=== PATIENT | male | born 1955 | race Caucasian/White ===

== ENCOUNTER 2016-10-01 20:21 | Emergency (ER) | payer SELFPAY ==
[2016-10-01] MEDS ORDERED: HYDROmorphone 2 MG/ML Syringe IVPUSH ONE (20:34)
[2016-10-01] MEDS ORDERED: Ondansetron 4 MG/2 ML SDV IVPUSH ONE (20:34)
[2016-10-01] MEDS ORDERED: Ketorolac 30 MG/ML SDV IVPUSH ONE (20:34)
[2016-10-01] MEDS ORDERED: Sodium Chloride 0.9% 1,000 ML IV ONE (20:34)
--- NOTE | 2016-10-01 20:46 | EDM.PDOC ---
<Doris Roque R - Last Filed: 10/01/16 21:13> ED HPI GENERAL MEDICAL PROBLEM - General Chief Complaint: Flank Pain Stated Complaint: RIGHT SIDE AND BACK PAIN Time Seen by Provider: 10/01/16 20:30 Source of Information: Reports: Patient History Limitations: Reports: No Limitations - History of Present Illness INITIAL COMMENTS - FREE TEXT/NARRATIVE: Presents to the ER reporting right flank pain since 1:00 this afternoon. Patient has a history of renal stones with the same type of pain in the past. Denies fever, dysuria, injury. A review of the records indicates that the patient was seen in this ER in July and September of 2015 with similar symptoms and diagnosed with nonobstructing renal stones which she was able to pass on its own. Right Flank Pain Score (Numeric/FACES): 10 - Related Data Allergies Allergy/AdvReac Type Severity Reaction Status Date / Time No Known Allergies Allergy Verified 10/01/16 20:24 Home Meds: Home Meds . [No Known Home Meds] 10/01/16 [History] Past Medical History - Past Health History Medical/Surgical History: Denies Medical/Surgical History HEENT History: Reports: None Cardiovascular History: Reports: None Respiratory History: Reports: None Gastrointestinal History: Reports: None Genitourinary History: Reports: Renal Calculus Neurological History: Reports: None Psychiatric History: Reports: None Endocrine/Metabolic History: Reports: None Hematologic History: Reports: None Immunologic History: Reports: None Oncologic (Cancer) History: Reports: None Dermatologic History: Reports: None - Infectious Disease History Infectious Disease History: Reports: None - Past Surgical History GI Surgical History: Reports: Hernia Repair/Other Musculoskeletal Surgical History: Reports: Shoulder Surgery, Other (See Below) Social & Family History - Family History Family Medical History: Noncontributory - Tobacco Use Smoking Status *Q: Current Every Day Smoker Years of Tobacco use: 15 Packs/Tins Daily: 1 Used Tobacco, but Quit: No Second Hand Smoke Exposure: Yes - Alcohol Use Days Per Week of Alcohol Use: 0 - Recreational Drug Use Recreational Drug Use: No ED ROS GENERAL - Review of Systems Review Of Systems: ROS reveals no pertinent complaints other than HPI. ED EXAM, RENAL/ - Physical Exam Exam: See Below Exam Limited By: No Limitations General Appearance: Alert, Moderate Distress (Due to flank pain) Ears: Normal External Exam Nose: Normal Inspection Throat/Mouth: Normal Inspection Head: Atraumatic, Normocephalic Neck: Normal Inspection Respiratory/Chest: No Respiratory Distress, Lungs Clear, Normal Breath Sounds Cardiovascular: Normal Peripheral Pulses, Regular Rate, Rhythm, No Murmur GI/Abdominal: Soft, Non-Tender Back Exam: Normal Inspection, Full Range of Motion Extremities: Normal Inspection Neurological: Alert, Oriented Psychiatric: Normal Affect, Anxious Skin Exam: Warm, Dry, Intact, Normal Color, No Rash Lymphatic: No Adenopathy Course - Vital Signs Last Recorded V/S: Last Vital Signs Temp 36.1 C 10/01/16 21:04 Pulse 51 L 10/01/16 21:42 Resp 15 10/01/16 21:42 BP 217/102 H 10/01/16 21:42 Pulse Ox 96 10/01/16 21:42 - Orders/Labs/Meds Orders: Active Orders 24 hr Category Date Time Status EKG Documentation Completion [RC] STAT Care 10/01/16 21:04 Active Abdomen Pelvis wo Cont [CT] Stat Exams 10/01/16 21:54 Taken Labs: Laboratory Tests 10/01/16 10/01/16 10/01/16 Range/Units 20:32 20:32 20:40 WBC 13.17 H (4.0-11.0) K/uL RBC 4.65 (4.50-5.90) M/uL Hgb 14.3 (13.0-17.0) g/dL Hct 42.2 (38.0-50.0) % MCV 90.8 (80.0-98.0) fL MCH 30.8 (27.0-32.0) pg MCHC 33.9 (31.0-37.0) g/dL RDW Std Deviation 44.3 (28.0-62.0) fl RDW Coeff of Aishwarya 14 (11.0-15.0) % Plt Count 224 (150-400) K/uL MPV 10.10 (7.40-12.00) fL Neut % (Auto) 84.8 H (48.0-80.0) % Lymph % (Auto) 11.2 L (16.0-40.0) % [place] % (Auto) 3.6 (0.0-15.0) % Eos % (Auto) 0.3 (0.0-7.0) % Baso % (Auto) 0.1 (0.0-1.5) % Neut # (Auto) 11.2 H (1.4-5.7) K/uL Lymph # (Auto) 1.5 (0.6-2.4) K/uL [place] # (Auto) 0.5 (0.0-0.8) K/uL Eos # (Auto) 0.0 (0.0-0.7) K/uL Baso # (Auto) 0.0 (0.0-0.1) K/uL Nucleated RBC % 0.0 /100WBC Nucleated RBCs # 0 K/uL Sodium 142 (136-146) mmol/L Potassium 3.8 (3.5-5.1) mmol/L Chloride 109 (98-110) mmol/L Carbon Dioxide 24 (21-31) mmol/L BUN 14 (6.0-23.0) mg/dL Creatinine 1.1 (0.6-1.5) mg/dL Est Cr Clr Drug Dosing 83.03 mL/min Estimated GFR (MDRD) > 60.0 ml/min Glucose 161 H (60-110) mg/dL Calcium 9.9 (8.8-10.8) mg/dL Total Bilirubin 0.6 (0.1-1.5) mg/dL AST 18 (5-40) IU/L ALT 17 (8-54) IU/L Alkaline Phosphatase 85 (40-150) Total Protein 8.2 H (6.0-8.0) g/dL Albumin 4.6 (3.4-4.8) g/dL Globulin 3.6 H (2.0-3.5) g/dL Albumin/Globulin Ratio 1.3 (1.3-2.8) Urine Color YELLOW Urine Appearance SLT CLOUDY Urine pH 5.5 (5.0-8.0) Ur Specific [place] >= 1.030 (1.001-1.035) Urine Protein 30 (NEGATIVE) mg/dL Urine Glucose (UA) NEGATIVE (NEGATIVE) mg/dL Urine Ketones 15 H (NEGATIVE) mg/dL Urine Occult Blood LARGE H (NEGATIVE) Urine Nitrite NEGATIVE (NEGATIVE) Urine Bilirubin NEGATIVE (NEGATIVE) Urine Urobilinogen 0.2 (<2.0) EU/dL Ur Leukocyte Esterase NEGATIVE (NEGATIVE) Urine RBC 10-15 (0-2/HPF) Urine WBC 0-4 (0-5/HPF) Ur Epithelial Cells OCCASIONAL (NONE-FEW) Amorphous Sediment LIGHT (NEGATIVE) Urine Bacteria FEW (NEGATIVE) Fine Granular Casts 0-1 (NEGATIVE) Coarse Granular Casts 0-1 (NEGATIVE) Urine Mucus LIGHT (NONE-MOD) Meds: Medications Discontinued Medications Generic Name Dose Route Start Last Admin Trade Name Herbertq PRN Reason Stop Dose Admin Hydromorphone HCl 1 mg 10/01/16 20:34 10/01/16 20:53 Dilaudid IVPUSH 10/01/16 20:35 1 mg ONETIME ONE Administration Sodium Chloride 1,000 mls @ 999 mls/hr 10/01/16 20:34 10/01/16 20:52 Normal Saline IV 10/01/16 21:34 999 mls/hr STAT ONE Administration Ketorolac Tromethamine 30 mg 10/01/16 20:34 10/01/16 20:52 Toradol IVPUSH 10/01/16 20:35 30 mg ONETIME ONE Administration Ondansetron HCl 4 mg 10/01/16 20:34 10/01/16 20:52 Zofran IVPUSH 10/01/16 20:35 4 mg ONETIME ONE Administration Departure - Departure Disposition: Home, Self-Care 01 Clinical Impression: Ureterolithiasis - Discharge Information Forms: ED Department Discharge Additional Instructions: The following information is given to patients seen in the emergency department who are being discharged to home. This information is to outline your options for follow-up care. We provide all patients seen in our emergency department with a follow-up referral. The need for follow-up, as well as the timing and circumstances, are variable depending upon the specifics of your emergency department visit. If you don't have a primary care physician on staff, we will provide you with a referral. We always advise you to contact your personal physician following an emergency department visit to inform them of the circumstance of the visit and for follow-up with them and/or the need for any referrals to a consulting specialist. The emergency department will also refer you to a specialist when appropriate. This referral assures that you have the opportunity for followup care with a specialist. All of these measure are taken in an effort to provide you with optimal care, which includes your followup. Under all circumstances we always encourage you to contact your private physician who remains a resource for coordinating your care. When calling for followup care, please make the office aware that this follow-up is from your recent emergency room visit. If for any reason you are refused follow-up, please contact the [facility] emergency department at and asked to speak to the emergency department charge nurse. [facility] Specialty Care - Urology [address] [place] [id number] Flomax hydrocodone Zofran as prescribed followup urology above is discussed return as needed as discussed <Dewey Burton - Last Filed: 10/01/16 22:48> Departure - Departure Time of Disposition: 22:44 Condition: good
[2016-10-01 21:20] LABS: CHLORIDE,CL 109 mmol/L (98-110); SODIUM,NA 142 mmol/L (136-146)
[2016-10-01 22:50] VITALS: BP 248/113
--- NOTE | 2016-10-02 15:28 | CT ---
EXAM DATE: 10/01/16 PATIENT'S AGE: 61 Patient: DAVID GUTIERREZ Facility: [place], [place] Site . Site : [id number] Study: CT Abdomen/Pelvis [id number]/4/2017 10:15:09 PM Ordering Physician: Doctor Howard Final Report: INDICATION: Right-sided pain. TECHNIQUE: CT abdomen and pelvis acquired without contrast. COMPARISON: CT abdomen and pelvis October 15, 2015. FINDINGS: Lower chest: Unremarkable. Liver: Unremarkable. Spleen: Unremarkable. Pancreas: Unremarkable. Gallbladder and bile ducts: Unremarkable. Kidneys: There is a 1 x 5 mm stone at the right ureterovesicular junction causing mild to moderate hydroureteronephrosis. No additional ureteral stones demonstrated. Additional bilateral nonobstructing renal stones. Right renal cyst , unchanged. Adrenal glands: Unremarkable. GI tract: Unremarkable. Appendix is normal. No free air or free fluid. Vascular structures: Unremarkable. Lymph nodes: Unremarkable. Pelvic Organs: Unremarkable. Bones: Degenerative changes of the spine. Remote right rib fractures. IMPRESSION: 1 x 5 mm stone at the right ureterovesicular junction causing mild to moderate hydroureteronephrosis. Nonobstructing renal stones. Dictated by Raymundo Horner MD @ 10/01/2016 10:39:23 PM Dictated by: Raymundo Horner MD @ 10/01/2016 22:39:36 (Electronic Signature) Report Signed by Proxy. [facility]ITAL[facility]imi
== END 2016-10-01 22:59 | disposition home or self-care (01) ==
LOC: MW.ED 20:21
DX: N13.2 Hydronephrosis with renal and ureteral calculous obstruction (principal); F17.210 Nicotine dependence, cigarettes, uncomplicated; Z98.890 Other specified postprocedural states
CPT/HCPCS: 36415; 74176; 80053; 81001; 85025; 93005; 96361; 96374; 96375; 99284; J1170; J1885; J2405; J7040

== ENCOUNTER 2016-11-24 10:18 | Inpatient (IN) | payer SELFPAY ==
--- NOTE | 2016-11-24 10:48 | EDM.PDOC ---
ED HPI GENERAL MEDICAL PROBLEM - General Chief Complaint: Abdominal Pain Stated Complaint: URINARY ISSUES Time Seen by Provider: 11/24/16 10:34 Source of Information: Reports: Patient History Limitations: Reports: No Limitations - History of Present Illness INITIAL COMMENTS - FREE TEXT/NARRATIVE: HISTORY AND PHYSICAL: History of present illness: [61-year-old male with a history of "kidney problems," as well as a history of alcoholism but has not drank in years now presents emergency department complaining of feeling really weak. Patient's blood pressure is significantly elevated on arrival at 245/91. Patient denies chest pain or shortness of breath. Denies headache or changes in vision speech strength gait or coordination. Patient reports normal bowel and bladder habits. Denies drug use. Patient complaining of right lower abdominal pain since last night. He has a history of kidney stone in that distribution recently diagnosed. Review of systems: As per history of present illness and below otherwise all systems reviewed and negative. Past medical history: As per history of present illness and as reviewed below otherwise noncontributory. Surgical history: As per history of present illness and as reviewed below otherwise noncontributory. Social history: No reported history of drug or alcohol abuse. Family history: As per history of present illness and as reviewed below otherwise noncontributory. Physical exam: Patient with unkempt appearance but no acute distress but alert communicative cooperative appropriate. No acute distress HEENT: Atraumatic, normocephalic, pupils reactive, negative for conjunctival pallor or scleral icterus, mucous membranes mildly dry throat clear, neck supple , nontender, trachea midline. Lungs: Clear to auscultation, breath sounds equal bilaterally, chest nontender. Heart: S1S2, regular, negative for clicks, rubs, or JVD. Abdomen: Soft, nondistended, mild right lower quadrant tenderness no guarding or rebound normal bowel sounds no mass or megaly no inguinal mass no CVA tenderness. Negative for masses or hepatosplenomegaly. Negative for costovertebral tenderness. Pelvis: Stable nontender. Genitourinary: Deferred. Rectal: Deferred. Extremities: Atraumatic, negative for cords or calf pain. Neurovascular unremarkable. Neuro: Awake, alert, oriented. Cranial nerves II through XII unremarkable. Cerebellum unremarkable. Motor and sensory unremarkable throughout. Exam nonfocal. Diagnostics: [CT of the abdomen and pelvis with normal appendix and 5 mm stone in the right ureter at the UVJ with some moderate hydro which is unchanged from prior study] Therapeutics: [] Impression: Plan: [Patient with abdominal pain mild right lower quadrant tenderness. CT negative for appendicitis with a normal visualized appendix. White count elevated however urine is not consistent with infection. CT shows no significant change in 5 mm stone at the right UVJ. Well radiographically there is perinephric stranding patient does not have urinary findings to suggest infection however urine culture blood and blood cultures are pending and Rocephin ordered for empiric antibiotic treatment] patient's blood pressure uncontrolled as high as 245 systolic. Multiple attempts reflected the same value so Cardene drip initiated with goal of cautious blood pressure improvement in inpatient admission for further workup and treatment and to rule out endorgan damage. Case discussed with Dr. Francisco Chavira hospitalist precision lens grinder who is aware of history and findings and agrees with inpatient admission to the ICU on the Cardene drip for further workup and treatment as needed. Critical care 37 minutes[] Definitive disposition and diagnosis as appropriate pending reevaluation and review of above. abdomen Pain Score (Numeric/FACES): 10 - Related Data Allergies Allergy/AdvReac Type Severity Reaction Status Date / Time No Known Allergies Allergy Verified 11/24/16 10:28 Home Meds: Home Meds . [No Known Home Meds] 10/01/16 [History] Past Medical History - Past Health History Medical/Surgical History: Denies Medical/Surgical History HEENT History: Reports: None Cardiovascular History: Reports: None Respiratory History: Reports: None Gastrointestinal History: Reports: None Genitourinary History: Reports: Renal Calculus Musculoskeletal History: Reports: None Neurological History: Reports: None Psychiatric History: Reports: None Endocrine/Metabolic History: Reports: None Hematologic History: Reports: None Immunologic History: Reports: None Oncologic (Cancer) History: Reports: None Dermatologic History: Reports: None - Infectious Disease History Infectious Disease History: Reports: None - Past Surgical History GI Surgical History: Reports: Hernia Repair/Other Musculoskeletal Surgical History: Reports: Shoulder Surgery, Other (See Below) Social & Family History - Family History Family Medical History: Noncontributory - Tobacco Use Smoking Status *Q: Current Every Day Smoker Years of Tobacco use: 15 Packs/Tins Daily: 1 Used Tobacco, but Quit: No Second Hand Smoke Exposure: Yes - Caffeine Use Caffeine Use: Reports: Soda - Alcohol Use Days Per Week of Alcohol Use: 0 - Recreational Drug Use Recreational Drug Use: No ED ROS GENERAL - Review of Systems Review Of Systems: See Below (History of present illness) ED EXAM, GENERAL - Physical Exam Exam: See Below (History of present illness) Course - Vital Signs Last Recorded V/S: Last Vital Signs Temp 36.1 C 11/24/16 10:30 Pulse 33 L 11/24/16 10:30 Resp 28 H 11/24/16 10:30 BP 251/89 H 11/24/16 10:34 Pulse Ox 98 11/24/16 10:30 - Orders/Labs/Meds Orders: Active Orders 24 hr Category Date Time Status Patient Status [ADT] Routine ADT 11/24/16 13:29 Active Patient Status [ADT] Stat ADT 11/24/16 13:15 Active Antiembolic Devices [RC] PER UNIT ROUTINE Care 11/24/16 13:32 Active EKG Documentation Completion [RC] STAT Care 11/24/16 10:51 Active Notify Provider Consults [RC] ASDIRECTED Care 11/24/16 13:32 Active Oxygen Therapy [RC] PRN Care 11/24/16 13:29 Active Telemetry Monitoring [Cardiac Monitoring] [RC] . Care 11/24/16 13:56 Active DIRECTED VTE/DVT Education [RC] PER UNIT ROUTINE Care 11/24/16 13:29 Active Vital Signs [RC] Q4H Care 11/24/16 13:29 Active Consult to Physician [CONS] Routine Cons 11/24/16 13:29 Active NPO Now [Nothing per Oral Now Diet] [DIET] Diet 11/24/16 Dinner Active Abdomen Pelvis w wo Cont [CT] Stat Exams 11/24/16 10:55 Taken Chest 1V Frontal [CR] Stat Exams 11/24/16 10:51 Taken BASIC METABOLIC PANEL,BMP [CHEM] AM Lab 11/25/16 05:11 Ordered CBC WITH AUTO DIFF [HEME] AM Lab 11/25/16 05:11 Ordered CULTURE BLOOD [BC] Stat Lab 11/24/16 14:06 Ordered CULTURE BLOOD [BC] Stat Lab 11/24/16 14:06 Ordered CULTURE URINE [RM] Stat Lab 11/24/16 12:27 Received DRUG SCREEN, URINE [URCHEM] Stat Lab 11/24/16 14:08 Uncollected Ciprofloxacin in D5W [Cipro in D5W 400 MG/200 ML] 400 Med 11/24/16 13:45 Active mg Premix Bag 1 bag IV Q12H Enoxaparin [Lovenox] Med 11/24/16 14:00 Active 40 mg SUBCUT Q24H HYDROmorphone [Dilaudid] Med 11/24/16 13:29 Active 0.5 mg IVPUSH Q2H PRN Ondansetron [Zofran] Med 11/24/16 13:35 Active 4 mg IVPUSH Q4H PRN Pantoprazole [ProTONIX] Med 11/24/16 14:00 Active 40 mg PO DAILY Temazepam [Restoril] Med 11/24/16 13:29 Active 15 mg PO BEDTIME PRN niCARdipine/Normal Saline [Cardene 20 MG in NS 200 ML] Med 11/24/16 11:15 Active 20 mg in 200 ml IV TITRATE Blood Culture x2 Reflex Set [OM.PC] Stat Ot 11/24/16 12:38 Ordered Blood Culture x2 Reflex Set [OM.PC] Stat Ot 11/24/16 14:06 Ordered Peripheral IV Insertion Adult [OM.PC] Stat Ot 11/24/16 10:48 Ordered Sequential Compression Device [OM.PC] Per Unit Routine Ot 11/24/16 13:30 Ordered Resuscitation Status Routine Resus Stat 11/24/16 13:29 Ordered Medication Orders Enoxaparin Sodium (Lovenox) 40 mg SUBCUT Q24H KIMBERLEY Hydromorphone HCl (Dilaudid) 0.5 mg IVPUSH Q2H PRN PRN Reason: Pain (severe 7-10) Nicardipine HCl (Cardene 20 Mg In Ns 200 Ml) 20 mg in 200 mls @ 25 mls/hr IV TITRATE KIMBERLEY; 2.5 MG/HR PRN Reason: Protocol Last Titration: 11/24/16 11:29 Dose: 5 mg/hr, 50 mls/hr Admin: 11/24/16 11:10 Dose: 2.5 mg/hr, 25 mls/hr Ciprofloxacin/Dextrose 400 mg/ (Premix) 200 mls @ 200 mls/hr IV Q12H KIMBERLEY Last Admin: 11/24/16 13:50 Dose: 200 mls/hr Ondansetron HCl (Zofran) 4 mg IVPUSH Q4H PRN PRN Reason: Nausea Pantoprazole Sodium (Protonix) 40 mg PO DAILY KIMBERLEY Temazepam (Restoril) 15 mg PO BEDTIME PRN PRN Reason: Sleep Labs: Laboratory Tests 11/24/16 11/24/16 11/24/16 Range/Units 10:35 10:35 10:35 WBC 15.09 H (4.0-11.0) K/uL RBC 4.78 (4.50-5.90) M/uL Hgb 15.1 (13.0-17.0) g/dL Hct 43.3 (38.0-50.0) % MCV 90.6 (80.0-98.0) fL MCH 31.6 (27.0-32.0) pg MCHC 34.9 (31.0-37.0) g/dL RDW Std Deviation 45.0 (28.0-62.0) fl RDW Coeff of Aishwarya 14 (11.0-15.0) % Plt Count 217 (150-400) K/uL MPV 10.20 (7.40-12.00) fL Neut % (Auto) 84.9 H (48.0-80.0) % Lymph % (Auto) 9.7 L (16.0-40.0) % Cherry % (Auto) 5.2 (0.0-15.0) % Eos % (Auto) 0.1 (0.0-7.0) % Baso % (Auto) 0.1 (0.0-1.5) % Neut # (Auto) 12.8 H (1.4-5.7) K/uL Lymph # (Auto) 1.5 (0.6-2.4) K/uL Cherry # (Auto) 0.8 (0.0-0.8) K/uL Eos # (Auto) 0.0 (0.0-0.7) K/uL Baso # (Auto) 0.0 (0.0-0.1) K/uL Nucleated RBC % 0.0 /100WBC Nucleated RBCs # 0 K/uL Lactate (0.20-2.00) mmol/L Sodium 139 (136-146) mmol/L Potassium 4.1 (3.5-5.1) mmol/L Chloride 104 (98-110) mmol/L Carbon Dioxide 26 (21-31) mmol/L BUN 17 (6.0-23.0) mg/dL Creatinine 1.3 (0.6-1.5) mg/dL Est Cr Clr Drug Dosing 70.26 mL/min Estimated GFR (MDRD) 56.3 ml/min Glucose 163 H (60-110) mg/dL Calcium 9.5 (8.8-10.8) mg/dL Total Bilirubin 0.7 (0.1-1.5) mg/dL AST 21 (5-40) IU/L ALT 23 (8-54) IU/L Alkaline Phosphatase 91 (40-150) Troponin I < 0.10 (0.0-0.29) NG/ML Total Protein 8.3 H (6.0-8.0) g/dL Albumin 4.3 (3.4-4.8) g/dL Globulin 4.0 H (2.0-3.5) g/dL Albumin/Globulin Ratio 1.1 L (1.3-2.8) Lipase 15 (7-80) U/L TSH 3rd Generation 0.70 (0.47-5.0) uIU/mL Urine Color Urine Appearance Urine pH (5.0-8.0) Ur Specific [place] (1.001-1.035) Urine Protein (NEGATIVE) mg/dL Urine Glucose (UA) (NEGATIVE) mg/dL Urine Ketones (NEGATIVE) mg/dL Urine Occult Blood (NEGATIVE) Urine Nitrite (NEGATIVE) Urine Bilirubin (NEGATIVE) Urine Urobilinogen (<2.0) EU/dL Ur Leukocyte Esterase (NEGATIVE) Urine RBC (0-2/HPF) Urine WBC (0-5/HPF) Ur Epithelial Cells (NONE-FEW) Urine Bacteria (NEGATIVE) 11/24/16 11/24/16 11/24/16 Range/Units 11:27 12:55 13:40 WBC (4.0-11.0) K/uL RBC (4.50-5.90) M/uL Hgb (13.0-17.0) g/dL Hct (38.0-50.0) % MCV (80.0-98.0) fL MCH (27.0-32.0) pg MCHC (31.0-37.0) g/dL RDW Std Deviation (28.0-62.0) fl RDW Coeff of Aishwarya (11.0-15.0) % Plt Count (150-400) K/uL MPV (7.40-12.00) fL Neut % (Auto) (48.0-80.0) % Lymph % (Auto) (16.0-40.0) % Cherry % (Auto) (0.0-15.0) % Eos % (Auto) (0.0-7.0) % Baso % (Auto) (0.0-1.5) % Neut # (Auto) (1.4-5.7) K/uL Lymph # (Auto) (0.6-2.4) K/uL Cherry # (Auto) (0.0-0.8) K/uL Eos # (Auto) (0.0-0.7) K/uL Baso # (Auto) (0.0-0.1) K/uL Nucleated RBC % /100WBC Nucleated RBCs # K/uL Lactate 1.3 (0.20-2.00) mmol/L Sodium (136-146) mmol/L Potassium (3.5-5.1) mmol/L Chloride (98-110) mmol/L Carbon Dioxide (21-31) mmol/L BUN (6.0-23.0) mg/dL Creatinine (0.6-1.5) mg/dL Est Cr Clr Drug Dosing mL/min Estimated GFR (MDRD) ml/min Glucose (60-110) mg/dL Calcium (8.8-10.8) mg/dL Total Bilirubin (0.1-1.5) mg/dL AST (5-40) IU/L ALT (8-54) IU/L Alkaline Phosphatase (40-150) Troponin I < 0.10 (0.0-0.29) NG/ML Total Protein (6.0-8.0) g/dL Albumin (3.4-4.8) g/dL Globulin (2.0-3.5) g/dL Albumin/Globulin Ratio (1.3-2.8) Lipase (7-80) U/L TSH 3rd Generation (0.47-5.0) uIU/mL Urine Color YELLOW Urine Appearance CLEAR Urine pH 7.0 (5.0-8.0) Ur Specific [place] 1.015 (1.001-1.035) Urine Protein TRACE (NEGATIVE) mg/dL Urine Glucose (UA) 250 H (NEGATIVE) mg/dL Urine Ketones TRACE H (NEGATIVE) mg/dL Urine Occult Blood TRACE-INTACT (NEGATIVE) Urine Nitrite NEGATIVE (NEGATIVE) Urine Bilirubin NEGATIVE (NEGATIVE) Urine Urobilinogen 0.2 (<2.0) EU/dL Ur Leukocyte Esterase NEGATIVE (NEGATIVE) Urine RBC 0-2 (0-2/HPF) Urine WBC 0-1 (0-5/HPF) Ur Epithelial Cells RARE (NONE-FEW) Urine Bacteria FEW (NEGATIVE) Meds: Medications Generic Name Dose Route Start Last Admin Trade Name Freq PRN Reason Stop Dose Admin Enoxaparin Sodium 40 mg 11/24/16 14:00 Lovenox SUBCUT Q24H KIMBERLEY Hydromorphone HCl 0.5 mg 11/24/16 13:29 Dilaudid IVPUSH Q2H PRN Pain (severe 7-10) Nicardipine HCl 20 mg in 200 mls @ 25 mls/hr 11/24/16 11:15 11/24/16 11:29 Cardene 20 Mg In Ns 200 Ml IV 5 mg/hr TITRATE KIMBERLEY 50 mls/hr Protocol Titration 2.5 MG/HR Ciprofloxacin/Dextrose 400 mg/ 200 mls @ 200 mls/hr 11/24/16 13:45 11/24/16 13:50 Premix IV 200 mls/hr Q12H KIMBERLEY Administration Ondansetron HCl 4 mg 11/24/16 13:35 Zofran IVPUSH Q4H PRN Nausea Pantoprazole Sodium 40 mg 11/24/16 14:00 Protonix PO DAILY KIMBERLEY Temazepam 15 mg 11/24/16 13:29 Restoril PO BEDTIME PRN Sleep Discontinued Medications Generic Name Dose Route Start Last Admin Trade Name Freq PRN Reason Stop Dose Admin Hydromorphone HCl 0.5 mg 11/24/16 12:16 11/24/16 12:21 Dilaudid IVPUSH 11/24/16 12:17 0.5 mg ONETIME ONE Administration Sodium Chloride 1,000 mls @ 999 mls/hr 11/24/16 10:51 11/24/16 11:00 Normal Saline IV 11/24/16 11:51 999 mls/hr .Bolus ONE Administration Ceftriaxone Sodium/Dextrose 1 50 mls @ 100 mls/hr 11/24/16 13:34 gm/ Premix IV 11/24/16 14:03 ONETIME ONE Iopamidol 75 ml 11/24/16 12:03 11/24/16 12:10 Isovue Multipack-370 (76%) IVPUSH 11/24/16 12:04 75 ml ONETIME STA Administration Ondansetron HCl 4 mg 11/24/16 12:09 11/24/16 12:21 Zofran IVPUSH 11/24/16 12:10 4 mg ONETIME ONE Administration Departure - Departure Time of Disposition: 13:15 Disposition: Admitted As Inpatient 67 Clinical Impression: Accelerated hypertension, Leukocytosis, Ureterolithiasis, Hyperglycemia - Discharge Information - My Orders Last 24 Hours: My Active Orders 11/24/16 10:48 Peripheral IV Insertion Adult [OM.PC] Stat 11/24/16 10:51 EKG Documentation Completion [RC] STAT Chest 1V Frontal [CR] Stat 11/24/16 10:55 Abdomen Pelvis w wo Cont [CT] Stat 11/24/16 11:15 niCARdipine/Normal Saline [Cardene 20 MG in NS 200 ML] 20 mg in 200 ml IV TITRATE 11/24/16 12:27 CULTURE URINE [RM] Stat 11/24/16 12:38 Blood Culture x2 Reflex Set [OM.PC] Stat 11/24/16 13:15 Patient Status [ADT] Stat 11/24/16 14:06 CULTURE BLOOD [BC] Stat CULTURE BLOOD [BC] Stat Blood Culture x2 Reflex Set [OM.PC] Stat 11/24/16 14:08 DRUG SCREEN, URINE [URCHEM] Stat - Assessment/Plan Last 24 Hours: My Active Orders 11/24/16 10:48 Peripheral IV Insertion Adult [OM.PC] Stat 11/24/16 10:51 EKG Documentation Completion [RC] STAT Chest 1V Frontal [CR] Stat 11/24/16 10:55 Abdomen Pelvis w wo Cont [CT] Stat 11/24/16 11:15 niCARdipine/Normal Saline [Cardene 20 MG in NS 200 ML] 20 mg in 200 ml IV TITRATE 11/24/16 12:27 CULTURE URINE [RM] Stat 11/24/16 12:38 Blood Culture x2 Reflex Set [OM.PC] Stat 11/24/16 13:15 Patient Status [ADT] Stat 11/24/16 14:06 CULTURE BLOOD [BC] Stat CULTURE BLOOD [BC] Stat Blood Culture x2 Reflex Set [HALLE] Stat 11/24/16 14:08 DRUG SCREEN, URINE [URCHEM] Stat
[2016-11-24] MEDS ORDERED: Sodium Chloride 0.9% 1,000 ML IV ONE (10:51)
[2016-11-24] MEDS: niCARdipine/Normal Saline 20 MG/200 ML BAG IV SCH ×3 (11:10→21:23)
[2016-11-24] MEDS ORDERED: Iopamidol 755 MG/ML 500 ML Multipack Bottle IVPUSH STA (12:03)
[2016-11-24] MEDS ORDERED: Ondansetron 4 MG/2 ML SDV IVPUSH ONE (12:09)
[2016-11-24] MEDS ORDERED: HYDROmorphone 1 MG/ML Syringe IM ONE (12:09)
[2016-11-24] MEDS ORDERED: HYDROmorphone 1 MG/ML Syringe IVPUSH ONE (12:16)
[2016-11-24] MEDS ORDERED: Temazepam 15 MG Cap PO PRN (13:29)
--- NOTE | 2016-11-24 13:29 | PCM.HP ---
H&P History of Present Illness - General Date of Service: 11/24/16 Admit Problem/Dx: Admission Diagnosis/Problem Admission Diagnosis/Problem Hypertensive urgency Source of Information: Other (poor historian) History Limitations: Reports: Other (sedated with diluadid) - History of Present Illness Initial Comments - Free Text/Narative: 61 male who is a poor historian presented to ED for right lower quadrant abdominal pain. His BP 245/91 HR 33 RR 28 Spo2 98%. lactate normal. Elevated WBC 15.09 with normal BUN/CR. UA negative for wbc, leukoesterase, nitrate but trace ketones and blood. Troponin x1 negative. His EKG showed ST depression in inferior and lateral leads. Abdominal CT showed bilateral nephrolithiasis with persistent obstructing right UVJ calculus measuring 5 mm with moderate hydronephrosis unchanged from 10/01/16. He was started on nicardapine drip. Rocephin started in the ED. abdomen Pain Score (Numeric/FACES): 10 - Related Data Allergies/Adverse Reactions: Allergies Allergy/AdvReac Type Severity Reaction Status Date / Time No Known Allergies Allergy Verified 11/24/16 10:28 Home Medications: Home Meds . [No Known Home Meds] 10/01/16 [History] Past Medical History - Past Health History Medical/Surgical History: Denies Medical/Surgical History HEENT History: Reports: None Cardiovascular History: Reports: None Respiratory History: Reports: None Gastrointestinal History: Reports: None Genitourinary History: Reports: Renal Calculus Musculoskeletal History: Reports: None Neurological History: Reports: None Psychiatric History: Reports: None Endocrine/Metabolic History: Reports: None Hematologic History: Reports: None Immunologic History: Reports: None Oncologic (Cancer) History: Reports: None Dermatologic History: Reports: None - Infectious Disease History Infectious Disease History: Reports: None - Past Surgical History GI Surgical History: Reports: Hernia Repair/Other Musculoskeletal Surgical History: Reports: Shoulder Surgery, Other (See Below) Social & Family History - Family History Family Medical History: Noncontributory - Tobacco Use Smoking Status *Q: Current Every Day Smoker Years of Tobacco use: 15 Packs/Tins Daily: 1 Used Tobacco, but Quit: No Second Hand Smoke Exposure: Yes - Caffeine Use Caffeine Use: Reports: Soda - Alcohol Use Days Per Week of Alcohol Use: 0 - Recreational Drug Use Recreational Drug Use: No H&P Review of Systems - Review of Systems: Review Of Systems: See Below General: Reports: No Symptoms HEENT: Reports: No Symptoms Pulmonary: Reports: No Symptoms Cardiovascular: Reports: No Symptoms Gastrointestinal: Reports: Abdominal Pain Genitourinary: Reports: No Symptoms Musculoskeletal: Reports: No Symptoms Skin: Reports: No Symptoms Psychiatric: Reports: No Symptoms Neurological: Reports: No Symptoms Exam - Exam Exam: See Below - Vital Signs Vital Signs: Last Vital Signs Temp 97 F 11/24/16 10:30 Pulse 33 L 11/24/16 10:30 Resp 28 H 11/24/16 10:30 BP 251/89 H 11/24/16 10:34 Pulse Ox 98 11/24/16 10:30 Weight: 85.5 kg - Exam General: Alert, Oriented HEENT: Conjunctiva Clear, EOMI Neck: Supple, Trachea Midline Lungs: Clear to Auscultation, Normal Respiratory Effort Cardiovascular: Regular Rate, Regular Rhythm GI/Abdominal Exam: Normal Bowel Sounds, Soft, Non-Tender Back Exam: Normal Inspection Extremities: Normal Inspection, Other. No: Pedal Edema Skin: Dry, Intact Neurological: Cranial Nerves Intact Neuro Extensive - Mental Status: Normal Mood/Affect - Patient Data Lab Results Last 24 hrs: Laboratory Results - last 24 hr 11/24/16 11/24/16 11/24/16 Range/Units 10:35 10:35 10:35 WBC 15.09 H (4.0-11.0) K/uL RBC 4.78 (4.50-5.90) M/uL Hgb 15.1 (13.0-17.0) g/dL Hct 43.3 (38.0-50.0) % MCV 90.6 (80.0-98.0) fL MCH 31.6 (27.0-32.0) pg MCHC 34.9 (31.0-37.0) g/dL RDW Std Deviation 45.0 (28.0-62.0) fl RDW Coeff of Aishwarya 14 (11.0-15.0) % Plt Count 217 (150-400) K/uL MPV 10.20 (7.40-12.00) fL Neut % (Auto) 84.9 H (48.0-80.0) % Lymph % (Auto) 9.7 L (16.0-40.0) % [place] % (Auto) 5.2 (0.0-15.0) % Eos % (Auto) 0.1 (0.0-7.0) % Baso % (Auto) 0.1 (0.0-1.5) % Neut # (Auto) 12.8 H (1.4-5.7) K/uL Lymph # (Auto) 1.5 (0.6-2.4) K/uL [place] # (Auto) 0.8 (0.0-0.8) K/uL Eos # (Auto) 0.0 (0.0-0.7) K/uL Baso # (Auto) 0.0 (0.0-0.1) K/uL Nucleated RBC % 0.0 /100WBC Nucleated RBCs # 0 K/uL Lactate (0.20-2.00) mmol/L Sodium 139 (136-146) mmol/L Potassium 4.1 (3.5-5.1) mmol/L Chloride 104 (98-110) mmol/L Carbon Dioxide 26 (21-31) mmol/L BUN 17 (6.0-23.0) mg/dL Creatinine 1.3 (0.6-1.5) mg/dL Est Cr Clr Drug Dosing 70.26 mL/min Estimated GFR (MDRD) 56.3 ml/min Glucose 163 H (60-110) mg/dL Calcium 9.5 (8.8-10.8) mg/dL Total Bilirubin 0.7 (0.1-1.5) mg/dL AST 21 (5-40) IU/L ALT 23 (8-54) IU/L Alkaline Phosphatase 91 (40-150) Troponin I < 0.10 (0.0-0.29) NG/ML Total Protein 8.3 H (6.0-8.0) g/dL Albumin 4.3 (3.4-4.8) g/dL Globulin 4.0 H (2.0-3.5) g/dL Albumin/Globulin Ratio 1.1 L (1.3-2.8) Lipase 15 (7-80) U/L TSH 3rd Generation 0.70 (0.47-5.0) uIU/mL Urine Color Urine Appearance Urine pH (5.0-8.0) Ur Specific [place] (1.001-1.035) Urine Protein (NEGATIVE) mg/dL Urine Glucose (UA) (NEGATIVE) mg/dL Urine Ketones (NEGATIVE) mg/dL Urine Occult Blood (NEGATIVE) Urine Nitrite (NEGATIVE) Urine Bilirubin (NEGATIVE) Urine Urobilinogen (<2.0) EU/dL Ur Leukocyte Esterase (NEGATIVE) Urine RBC (0-2/HPF) Urine WBC (0-5/HPF) Ur Epithelial Cells (NONE-FEW) Urine Bacteria (NEGATIVE) 11/24/16 11/24/16 Range/Units 11:27 12:55 WBC (4.0-11.0) K/uL RBC (4.50-5.90) M/uL Hgb (13.0-17.0) g/dL Hct (38.0-50.0) % MCV (80.0-98.0) fL MCH (27.0-32.0) pg MCHC (31.0-37.0) g/dL RDW Std Deviation (28.0-62.0) fl RDW Coeff of Aishwarya (11.0-15.0) % Plt Count (150-400) K/uL MPV (7.40-12.00) fL Neut % (Auto) (48.0-80.0) % Lymph % (Auto) (16.0-40.0) % [place] % (Auto) (0.0-15.0) % Eos % (Auto) (0.0-7.0) % Baso % (Auto) (0.0-1.5) % Neut # (Auto) (1.4-5.7) K/uL Lymph # (Auto) (0.6-2.4) K/uL [place] # (Auto) (0.0-0.8) K/uL Eos # (Auto) (0.0-0.7) K/uL Baso # (Auto) (0.0-0.1) K/uL Nucleated RBC % /100WBC Nucleated RBCs # K/uL Lactate 1.3 (0.20-2.00) mmol/L Sodium (136-146) mmol/L Potassium (3.5-5.1) mmol/L Chloride (98-110) mmol/L Carbon Dioxide (21-31) mmol/L BUN (6.0-23.0) mg/dL Creatinine (0.6-1.5) mg/dL Est Cr Clr Drug Dosing mL/min Estimated GFR (MDRD) ml/min Glucose (60-110) mg/dL Calcium (8.8-10.8) mg/dL Total Bilirubin (0.1-1.5) mg/dL AST (5-40) IU/L ALT (8-54) IU/L Alkaline Phosphatase (40-150) Troponin I (0.0-0.29) NG/ML Total Protein (6.0-8.0) g/dL Albumin (3.4-4.8) g/dL Globulin (2.0-3.5) g/dL Albumin/Globulin Ratio (1.3-2.8) Lipase (7-80) U/L TSH 3rd Generation (0.47-5.0) uIU/mL Urine Color YELLOW Urine Appearance CLEAR Urine pH 7.0 (5.0-8.0) Ur Specific [place] 1.015 (1.001-1.035) Urine Protein TRACE (NEGATIVE) mg/dL Urine Glucose (UA) 250 H (NEGATIVE) mg/dL Urine Ketones TRACE H (NEGATIVE) mg/dL Urine Occult Blood TRACE-INTACT (NEGATIVE) Urine Nitrite NEGATIVE (NEGATIVE) Urine Bilirubin NEGATIVE (NEGATIVE) Urine Urobilinogen 0.2 (<2.0) EU/dL Ur Leukocyte Esterase NEGATIVE (NEGATIVE) Urine RBC 0-2 (0-2/HPF) Urine WBC 0-1 (0-5/HPF) Ur Epithelial Cells RARE (NONE-FEW) Urine Bacteria FEW (NEGATIVE) Result Diagrams: 11/24/16 10:35 11/24/16 10:35 *Q Meaningful Use (ADM) - VTE *Q VTE Criteria *Q: - Stroke *Q Stroke Criteria *Q: - AMI *Q AMI Criteria *Q: Problem List Initiated/Reviewed/Updated: Yes Orders Last 24hrs: Active Orders 24 hr Category Date Time Status Patient Status [ADT] Stat ADT 11/24/16 13:15 Active EKG Documentation Completion [RC] STAT Care 11/24/16 10:51 Active Abdomen Pelvis w wo Cont [CT] Stat Exams 11/24/16 10:55 Taken Chest 1V Frontal [CR] Stat Exams 11/24/16 10:51 Taken CULTURE URINE [RM] Stat Lab 11/24/16 12:27 Received CULTURE URINE [RM] Stat Lab 11/24/16 13:15 Uncollected niCARdipine/Normal Saline [Cardene 20 MG in NS 200 ML] Med 11/24/16 11:15 Active 20 mg in 200 ml IV TITRATE Blood Culture x2 Reflex Set [OM.PC] Stat Oth 11/24/16 12:38 Ordered Peripheral IV Insertion Adult [OM.PC] Stat Oth 11/24/16 10:48 Ordered Medication Orders Nicardipine HCl (Cardene 20 Mg In Ns 200 Ml) 20 mg in 200 mls @ 25 mls/hr IV TITRATE KIMBERLEY; 2.5 MG/HR PRN Reason: Protocol Last Titration: 11/24/16 11:29 Dose: 5 mg/hr, 50 mls/hr Admin: 11/24/16 11:10 Dose: 2.5 mg/hr, 25 mls/hr Assessment/Plan Comment:: 61 yo male admitted for hypertensive urgency and right obstructing kidney stone Admit to ICU: secured entrance monitor NPO except meds Dr. Navas urology consulted: He recommended IV cipro 400 bid at this time. urine and blood cultures pending on nicardapine drip DVT prophylaxis: lovenox 40 s/c QD GI prophylaxsis: protonix 40 mg PO QD
[2016-11-24] MEDS ORDERED: cefTRIAXone 1 GM in Premix Bag 1 BAG IV ONE (13:34)
[2016-11-24] MEDS ORDERED: Ondansetron 4 MG/2 ML SDV IVPUSH PRN (13:35)
[2016-11-24] MEDS: Ciprofloxacin in D5W 400 MG in Premix Bag 1 BAG IV SCH ×2 (13:50)
[2016-11-24] MEDS: Enoxaparin 40 MG/0.4 ML Syringe SUBCUT SCH (14:10)
[2016-11-24] MEDS: Pantoprazole 40 MG Tab.CR PO SCH (14:10)
[2016-11-24] MEDS: Sodium Chloride 0.9% 1,000 ML IV SCH ×2 (14:25→21:47)
--- NOTE | 2016-11-24 19:09 | CR ---
EXAM DATE: 11/24/16 PATIENT'S AGE: 61 Patient: DAVID GUTIERREZ Facility: [place], [place] Site . Site : 1955 Study: XRay Chest [id number]/28/2017 11:49:53 AM Ordering Physician: Michael Palomo Final Report: INDICATION: Chest pain. Technique: Portable AP chest. Findings: Normal size cardiac silhouette. Clear lung daniel without evidence of acute pneumonic infiltrates or CHF. No pneumothorax or pleural effusion. Fracture involving the right 8th rib in the mid-axillary line; appears chronic. Impression: 1. Fracture right 8th rib probably chronic. 2. No acute pathology. Dictated by Alise Gonzalez MD @ Nov 24 2016 12:15PM (Electronic Signature) Report Signed by Proxy. KENZIE
--- NOTE | 2016-11-24 19:10 | CT ---
EXAM DATE: 11/24/16 PATIENT'S AGE: 61 Patient: DAVID GUTIERREZ Facility: [place], [place] Site . Site : 1955 Study: CT Abdomen/Pelvis [id number]/28/2017 12:00:26 PM Ordering Physician: Michael Palomo Final Report: INDICATION: Right-sided abdominal pain. Rule out acute appendicitis. TECHNIQUE: CT abdomen and pelvis without and with IV contrast. Type and amount of IV contrast not provided. COMPARISON: CT study dated 10/01/2016. FINDINGS: Lower chest: Imaged lung bases are clear. No free air. Liver: Unremarkable. Spleen: Unremarkable. Pancreas: Unremarkable. Gallbladder and bile ducts: Unremarkable. Adrenal glands: Unremarkable. Kidneys: Linear 5 millimeter calculus at the right ureteral orifice on series 201, image 29, unchanged from 10/01/2016 study. Moderate right hydronephrosis persists. Increased perinephric fat stranding, concerning for interval development of upper tract urinary infection. Left renal calculi, unchanged. No left hydronephrosis or obstructing left ureteral calculus. Delayed right nephrogram on post-contrast imaging. Bilateral renal cysts with simple sonographic features. GI tract: Appendix is well-visualized and normal. Vascular structures: Abdominal aorta normal in caliber. Origins of the celiac artery and SMA are patent. Portal vein branches, splenic vein, SMV patent. Lymph nodes: Unremarkable. Miscellaneous: Unremarkable. No free air or significant free fluid. Pelvic Organs: Unremarkable. Bones: Old lower right rib fractures. No suspicious osseous lesion. IMPRESSION: 1. Bilateral nephrolithiasis with persistent obstructing right UVJ calculus, measuring 5 millimeters. Right UVJ calculus present on 10/01/2016 study. Degree of hydronephrosis is unchanged with increased perinephric fat stranding and fluid, suspicious for developing right upper tract urinary infection versus calyceal rupture. 2. Normal appendix. Dictated by Merrill Whitmore MD @ 11/24/2016 12:22:17 PM Dictated by: Merrill Whitmore MD @ 11/24/2016 12:23:04 (Electronic Signature) Report Signed by Proxy. KENZIE
[2016-11-24] MEDS: HYDROmorphone 2 MG/ML Syringe IVPUSH PRN (20:11)
[2016-11-25] MEDS: Ciprofloxacin in D5W 400 MG in Premix Bag 1 BAG IV SCH ×4 (01:07→13:32)
[2016-11-25] MEDS: Sodium Chloride 0.9% 1,000 ML IV SCH ×2 (06:34→14:35)
[2016-11-25] MEDS: Pantoprazole 40 MG Tab.CR PO SCH (08:50)
--- NOTE | 2016-11-25 10:26 | PCM.PN ---
- Review of Systems Systems Review Comment:: right lower quadrant pain resolved. - Patient Data Vitals - Most Recent: Last Vital Signs Temp 37.0 C 11/25/16 08:00 Pulse 64 11/24/16 13:49 Resp 25 H 11/25/16 10:00 BP 152/87 H 11/25/16 10:00 Pulse Ox 93 L 11/25/16 10:00 Weight - Most Recent: 83.6 kg I&O - Last 24 Hours: Intake & Output 11/24/16 11/25/16 11/25/16 22:59 06:59 14:59 Intake Total 1600 1306 Output Total 550 1890 Balance 1050 -584 Lab Results Last 24 Hours: Laboratory Results - last 24 hr 11/25/16 11/25/16 Range/Units 04:53 04:53 WBC 15.94 H (4.0-11.0) K/uL RBC 4.90 (4.50-5.90) M/uL Hgb 15.1 (13.0-17.0) g/dL Hct 44.0 (38.0-50.0) % MCV 89.8 (80.0-98.0) fL MCH 30.8 (27.0-32.0) pg MCHC 34.3 (31.0-37.0) g/dL RDW Std Deviation 45.1 (28.0-62.0) fl RDW Coeff of Aishwarya 14 (11.0-15.0) % Plt Count 207 (150-400) K/uL MPV 10.10 (7.40-12.00) fL Neut % (Auto) 79.8 (48.0-80.0) % Lymph % (Auto) 10.1 L (16.0-40.0) % [place] % (Auto) 9.9 (0.0-15.0) % Eos % (Auto) 0.1 (0.0-7.0) % Baso % (Auto) 0.1 (0.0-1.5) % Neut # (Auto) 12.7 H (1.4-5.7) K/uL Lymph # (Auto) 1.6 (0.6-2.4) K/uL [place] # (Auto) 1.6 H (0.0-0.8) K/uL Eos # (Auto) 0.0 (0.0-0.7) K/uL Baso # (Auto) 0.0 (0.0-0.1) K/uL Nucleated RBC % 0.0 /100WBC Nucleated RBCs # 0 K/uL Sodium 135 L (136-146) mmol/L Potassium 3.7 (3.5-5.1) mmol/L Chloride 103 (98-110) mmol/L Carbon Dioxide 23 (21-31) mmol/L BUN 16 (6.0-23.0) mg/dL Creatinine 1.3 (0.6-1.5) mg/dL Est Cr Clr Drug Dosing 70.26 mL/min Estimated GFR (MDRD) 56.3 ml/min Glucose 132 H (60-110) mg/dL Calcium 8.8 (8.8-10.8) mg/dL Med Orders - Current: Current Medications Enoxaparin Sodium (Lovenox) 40 mg SUBCUT Q24H [facility] Last Admin: 11/24/16 14:10 Dose: 40 mg Hydromorphone HCl (Dilaudid) 0.5 mg IVPUSH Q2H PRN PRN Reason: Pain (severe 7-10) Last Admin: 11/24/16 20:11 Dose: 0.5 mg Nicardipine HCl (Cardene 20 Mg In Ns 200 Ml) 20 mg in 200 mls @ 25 mls/hr IV TITRATE [facility]; 2.5 MG/HR PRN Reason: Protocol Last Titration: 11/25/16 02:08 Dose: 0 mg/hr, 0 mls/hr Ciprofloxacin/Dextrose 400 mg/ (Premix) 200 mls @ 200 mls/hr IV Q12H [facility] Last Admin: 11/25/16 01:07 Dose: 200 mls/hr Sodium Chloride (Normal Saline) 1,000 mls @ 125 mls/hr IV ASDIRECTED [facility] Last Admin: 11/25/16 06:34 Dose: 125 mls/hr Ondansetron HCl (Zofran) 4 mg IVPUSH Q4H PRN PRN Reason: Nausea Pantoprazole Sodium (Protonix) 40 mg PO DAILY [facility] Last Admin: 11/25/16 08:50 Dose: 40 mg Temazepam (Restoril) 15 mg PO BEDTIME PRN PRN Reason: Sleep Discontinued Medications Hydromorphone HCl (Dilaudid) 0.5 mg IVPUSH ONETIME ONE Stop: 11/24/16 12:17 Last Admin: 11/24/16 12:21 Dose: 0.5 mg Sodium Chloride (Normal Saline) 1,000 mls @ 999 mls/hr IV .Bolus ONE Stop: 11/24/16 11:51 Last Admin: 11/24/16 11:00 Dose: 999 mls/hr Ceftriaxone Sodium/Dextrose 1 (gm/ Premix) 50 mls @ 100 mls/hr IV ONETIME ONE Stop: 11/24/16 14:03 Last Admin: 11/24/16 14:10 Dose: Not Given Iopamidol (Isovue Multipack-370 (76%)) 75 ml IVPUSH ONETIME STA Stop: 11/24/16 12:04 Last Admin: 11/24/16 12:10 Dose: 75 ml Ondansetron HCl (Zofran) 4 mg IVPUSH ONETIME ONE Stop: 11/24/16 12:10 Last Admin: 11/24/16 12:21 Dose: 4 mg - Exam General: Alert, Oriented Lungs: Clear to Auscultation, Normal Respiratory Effort Cardiovascular: Regular Rate, Regular Rhythm Extremities: No Pedal Edema Skin: Warm, Dry, Intact - Problem List Review Problem List Initiated/Reviewed/Updated: Yes - My Orders Last 24 Hours: My Active Orders 11/24/16 15:01 Communication Order [RC] ROUTINE 11/24/16 19:45 Communication Order [RC] DAILY - Plan Plan:: 61 yo male admitted for hypertensive urgency and right obstructing kidney stone Dr. Navas urology consulted: He recommended IV cipro 400 bid at this time and NPO. awaiting further recommendations. urine and blood cultures pending Hypertenison: off nicardapine drip. will continue to monitor DVT prophylaxis: lovenox 40 s/c QD GI prophylaxsis: protonix 40 mg PO QD
[2016-11-25] MEDS: HYDROmorphone 2 MG/ML Syringe IVPUSH PRN (11:03)
[2016-11-25] MEDS: Enoxaparin 40 MG/0.4 ML Syringe SUBCUT SCH (13:32)
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
[2016-11-25] MEDS ORDERED: Propofol 200 MG/20 ML SDV ONE (14:37)
[2016-11-25] MEDS ORDERED: Succinylcholine/Normal Saline 200 MG/10 ML Syringe ONE (14:37)
[2016-11-25] MEDS ORDERED: Lidocaine 2% 5 ML SDV ONE (14:37)
[2016-11-25] MEDS ORDERED: Ondansetron 4 MG/2 ML SDV ONE (14:37)
[2016-11-25] MEDS ORDERED: fentaNYL 250 MCG/5 ML SDV ONE (14:38)
[2016-11-25] MEDS ORDERED: Midazolam 1 MG/ML 2 ML SDV ONE (14:38)
[2016-11-25] MEDS ORDERED: Iopamidol 408 MG/ML 50 ML SDV ONE (14:43)
[2016-11-25] MEDS ORDERED: Labetalol 100 MG/20 ML MDV ONE (15:22)
[2016-11-25] MEDS ORDERED: ePHEDrine 50 MG/ML SDV ONE (15:28)
[2016-11-25] MEDS ORDERED: Vasopressin 20 Units/1 ML MDV ONE (15:33)
[2016-11-25] MEDS ORDERED: Phenylephrine/Normal Saline 100 MCG/ML 10 ML Syringe ONE (15:33)
--- NOTE | 2016-11-25 16:50 | PCM.POSTAN ---
POST ANESTHESIA ASSESSMENT - MENTAL STATUS Mental Status: Alert, Oriented - RESPIRATORY Respiratory Status: Respiratory Rate WNL, Airway Patent, O2 Saturation Stable - CARDIOVASCULAR CV Status: Pulse Rate WNL, Blood Pressure Stable - GASTROINTESTINAL GI Status: No Symptoms - POST OP HYDRATION Hydration Status: Adequate & Stable
--- NOTE | 2016-11-25 18:07 | CONS ---
DATE OF CONSULTATION: DATE OF : 1955 PRIMARY CARE PHYSICIAN: None PCP HISTORY OF PRESENT ILLNESS: A [id number] presented to the emergency room of the hospital with sudden onset of right flank pain, initially one day duration, but he on further questioning said he has had this pain for about a month. He had a UA that showed microscopic hematuria. He had a serum creatinine that was 1.3, white blood count of 15,000. CT scan that showed a 2 mm stone in the right UVJ with, however, high-grade obstruction with extensive perirenal stranding and hydronephrosis. PAST MEDICAL HISTORY: Previous history is unrelated. PHYSICAL EXAMINATION: GENERAL APPEARANCE: Normal for his age. HEART: Normal sinus rhythm. LUNGS: Clear. ABDOMEN: Showed [id number] tenderness over the right side. Abdomen is soft otherwise. DIAGNOSIS: Right ureteral stone. PLAN: Plan is to give him overnight to see if he can pass it, because it is at the UVJ, and it is relatively small. Even though the white count is elevated, the UA is clean. I would suggest we put him on Cipro 400 mg IV twice a day while awaiting. CHAY / MARIANNA /[id number]
[2016-11-25 18:13] VITALS: BP 140/81
--- NOTE | 2016-11-25 18:54 | PCM.DCSUM1 ---
Discharge Summary - Discharge Data Discharge Date: 11/25/16 Discharge Disposition: Home, Self-Care 01 Condition: Good - Patient Summary/Data Hospital Course: Admission diagnosis Right nephrolithiasis Hydronephrosis UTI Hypertension Hospital course: 61 male who presented to ED for right lower quadrant abdominal pain. His BP 245 /91 HR 33 RR 28 Spo2 98%. lactate normal. Elevated WBC 15.09 with normal BUN/ CR. UA negative for wbc, leukoesterase, nitrate but trace ketones and blood. Abdominal CT showed bilateral nephrolithiasis with persistent obstructing right UVJ calculus measuring 5 mm with moderate hydronephrosis unchanged from 10/01/16. He was started on nicardapine drip in the ED due to his high blood pressure. Patient denied any chest pain or headache with elevated blood pressure. With pain management and IV fluids patient was weened off nicardapine drip. Dr. Navas was consulted and removed stone by right ureteroscopy. Dr. Navas then recommended discharge home on Ciprofloxacin with outpatient follow up with him next week. - Patient Instructions Diet: Regular Diet as Tolerated Activity: As Tolerated - Discharge Plan Prescriptions/Med Rec: Ciprofloxacin [Ciprofloxacin HCl] 500 mg PO BID #7 tablet Home Medications: Home Meds Ciprofloxacin [Ciprofloxacin HCl] 500 mg PO BID #7 tablet 11/25/16 [Rx] Patient Handouts: Ciprofloxacin tablets, Ureteroscopy, Care After Referrals: Wilbert Navas MD [Physician] - - Patient Data Vitals - Most Recent: Last Vital Signs Temp 36.7 C 11/25/16 16:14 Pulse 92 11/25/16 16:45 Resp 15 11/25/16 18:00 BP 140/81 11/25/16 18:00 Pulse Ox 94 L 11/25/16 18:00 Weight - Most Recent: 83.6 kg I&O - Last 24 hours: Intake & Output 11/25/16 11/25/16 11/25/16 06:59 14:59 22:59 Intake Total 1306 1400 Output Total 1890 400 Balance -584 -400 1400 Lab Results - Last 24 hrs: Laboratory Results - last 24 hr 11/25/16 11/25/16 11/25/16 Range/Units 04:53 04:53 14:26 WBC 15.94 H (4.0-11.0) K/uL RBC 4.90 (4.50-5.90) M/uL Hgb 15.1 (13.0-17.0) g/dL Hct 44.0 (38.0-50.0) % MCV 89.8 (80.0-98.0) fL MCH 30.8 (27.0-32.0) pg MCHC 34.3 (31.0-37.0) g/dL RDW Std Deviation 45.1 (28.0-62.0) fl RDW Coeff of Aishwarya 14 (11.0-15.0) % Plt Count 207 (150-400) K/uL MPV 10.10 (7.40-12.00) fL Neut % (Auto) 79.8 (48.0-80.0) % Lymph % (Auto) 10.1 L (16.0-40.0) % [place] % (Auto) 9.9 (0.0-15.0) % Eos % (Auto) 0.1 (0.0-7.0) % Baso % (Auto) 0.1 (0.0-1.5) % Neut # (Auto) 12.7 H (1.4-5.7) K/uL Lymph # (Auto) 1.6 (0.6-2.4) K/uL [place] # (Auto) 1.6 H (0.0-0.8) K/uL Eos # (Auto) 0.0 (0.0-0.7) K/uL Baso # (Auto) 0.0 (0.0-0.1) K/uL Nucleated RBC % 0.0 /100WBC Nucleated RBCs # 0 K/uL Sodium 135 L (136-146) mmol/L Potassium 3.7 (3.5-5.1) mmol/L Chloride 103 (98-110) mmol/L Carbon Dioxide 23 (21-31) mmol/L BUN 16 (6.0-23.0) mg/dL Creatinine 1.3 (0.6-1.5) mg/dL Est Cr Clr Drug Dosing 70.26 mL/min Estimated GFR (MDRD) 56.3 ml/min Glucose 132 H (60-110) mg/dL POC Glucose 149 H (60-110) mg/dL Calcium 8.8 (8.8-10.8) mg/dL JOE Results - Last 24 hrs: Microbiology 07/28/17 13:45 Aerobic Blood Culture - Preliminary Blood - Venous - Lab Draw NO GROWTH AFTER 1 DAY Anaerobic Blood Culture - Preliminary NO GROWTH AFTER 1 DAY Med Orders - Current: Current Medications Enoxaparin Sodium (Lovenox) 40 mg SUBCUT Q24H [facility] Last Admin: 11/25/16 13:32 Dose: 40 mg Hydromorphone HCl (Dilaudid) 0.5 mg IVPUSH Q2H PRN PRN Reason: Pain (severe 7-10) Last Admin: 11/25/16 11:03 Dose: 0.5 mg Nicardipine HCl (Cardene 20 Mg In Ns 200 Ml) 20 mg in 200 mls @ 25 mls/hr IV TITRATE [facility]; 2.5 MG/HR PRN Reason: Protocol Last Titration: 11/25/16 02:08 Dose: 0 mg/hr, 0 mls/hr Ciprofloxacin/Dextrose 400 mg/ (Premix) 200 mls @ 200 mls/hr IV Q12H [facility] Last Admin: 11/25/16 13:32 Dose: 200 mls/hr Sodium Chloride (Normal Saline) 1,000 mls @ 125 mls/hr IV ASDIRECTED [facility] Last Admin: 11/25/16 14:35 Dose: 125 mls/hr Ondansetron HCl (Zofran) 4 mg IVPUSH Q4H PRN PRN Reason: Nausea Last Admin: 11/25/16 11:12 Dose: 4 mg Pantoprazole Sodium (Protonix) 40 mg PO DAILY [facility] Last Admin: 11/25/16 08:50 Dose: 40 mg Temazepam (Restoril) 15 mg PO BEDTIME PRN PRN Reason: Sleep Discontinued Medications Ephedrine Sulfate (Ephedrine Sulfate) Confirm Administered Dose 50 mg .ROUTE .STK-MED ONE Stop: 11/25/16 15:29 Fentanyl (Sublimaze) Confirm Administered Dose 250 mcg .ROUTE .STK-MED ONE Stop: 11/25/16 14:39 Glycopyrrolate () Confirm Administered Dose 1 mg .ROUTE .STK-MED ONE Stop: 11/25/16 15:36 Hydromorphone HCl (Dilaudid) 0.5 mg IVPUSH ONETIME ONE Stop: 11/24/16 12:17 Last Admin: 11/24/16 12:21 Dose: 0.5 mg Sodium Chloride (Normal Saline) 1,000 mls @ 999 mls/hr IV .Bolus ONE Stop: 11/24/16 11:51 Last Admin: 11/24/16 11:00 Dose: 999 mls/hr Ceftriaxone Sodium/Dextrose 1 (gm/ Premix) 50 mls @ 100 mls/hr IV ONETIME ONE Stop: 11/24/16 14:03 Last Admin: 11/24/16 14:10 Dose: Not Given Iopamidol (Isovue Multipack-370 (76%)) 75 ml IVPUSH ONETIME STA Stop: 11/24/16 12:04 Last Admin: 11/24/16 12:10 Dose: 75 ml Iopamidol (Isovue-200 (41%)) Confirm Administered Dose 50 ml .ROUTE .STK-MED ONE Stop: 11/25/16 14:44 Labetalol HCl (Normodyne) Confirm Administered Dose 100 mg .ROUTE .STK-MED ONE Stop: 11/25/16 15:23 Lidocaine (Xylocaine-Mpf 2%) Confirm Administered Dose 5 ml .ROUTE .STK-MED ONE Stop: 11/25/16 14:38 Midazolam HCl (Versed 1 Mg/Ml) Confirm Administered Dose 2 mg .ROUTE .STK-MED ONE Stop: 11/25/16 14:39 Ondansetron HCl (Zofran) 4 mg IVPUSH ONETIME ONE Stop: 11/24/16 12:10 Last Admin: 11/24/16 12:21 Dose: 4 mg Ondansetron HCl (Zofran) Confirm Administered Dose 4 mg .ROUTE .STK-MED ONE Stop: 11/25/16 14:38 Phenylephrine HCl (Phenylephrine In Ns 100 Mcg/Ml) Confirm Administered Dose 1 mg .ROUTE .STK-MED ONE Stop: 11/25/16 15:34 Propofol (Diprivan 20 Ml) Confirm Administered Dose 200 mg .ROUTE .STK-MED ONE Stop: 11/25/16 14:38 Rocuronium Hematite (Zemuron) Confirm Administered Dose 50 mg .ROUTE .STK-MED ONE Stop: 11/25/16 14:38 Succinylcholine Chloride (Succinylcholine In Ns Pf) Confirm Administered Dose 200 mg .ROUTE .STK-MED ONE Stop: 11/25/16 14:38 Vasopressin (Vasopressin) Confirm Administered Dose 20 units .ROUTE .RUST-MED ONE Stop: 11/25/16 15:34 *Q Meaningful Use (DIS) - VTE *Q VTE Criteria *Q: - Stroke *Q Stroke Criteria *Q: - AMI *Q AMI Criteria *Q:
--- NOTE | 2016-11-25 19:01 | OR ---
SURGEON: Wilbert Navas M.D. DATE OF PROCEDURE: 11/25/2016 PREOPERATIVE DIAGNOSIS: Right lower ureteral stone with obstruction. POSTOPERATIVE DIAGNOSIS: Right lower ureteral stone with obstruction. OPERATION: Right ureteroscopy, stone removal. DESCRIPTION OF PROCEDURE: The patient was given general anesthesia, placed in dorsal lithotomy position, prepped and draped in sterile drapes. Cystourethroscopy was done that was normal. A guidewire was advanced in the right ureter only in the lower ureter. The ureter was then dilated using an UroMax II balloon dilator. The stone that was in the ureter was almost amorphous material. The ureter was dilated and the rigid ureteroscope was advanced into the right lower ureter. Stone material came out then. Upon further inspection, the guidewire has gone outside the ureteral mucosa, so that had to be withdrawn and the proper lumen was easily identified and a Glidewire was put through that, over which a 6-[place] 26 cm double-J stent was placed. The string at the end of the stent was taped to the outside of the penis. The bladder was emptied and the patient was moved to recovery room in good condition. CHAY / MARIANNA /[id number]
--- NOTE | 2016-11-26 00:32 | PCM48HPAN ---
Post Anesthesia Note - EVALUATION WITHIN 48HRS OF ANESTHETIC Vital Signs in Normal Range: Yes Patient Participated in Evaluation: Yes Respiratory Function Stable: Yes Airway Patent: Yes Cardiovascular Function Stable: Yes Hydration Status Stable: Yes Pain Control Satisfactory: Yes Nausea and Vomiting Control Satisfactory: Yes Mental Status Recovered: Yes
--- NOTE | 2016-11-27 11:08 | CT ---
EXAM DATE: 11/24/16 PATIENT'S AGE: 61 Patient: DAVID GUTIERREZ Facility: [facility] [place] Site . Site : [id number] Study: CT Abdomen/Pelvis [id number]/29/2017 12:16:22 PM Ordering Physician: aCit Singh Final Report: INDICATION: Assess for movement of renal stone. Technique: Volumetric unenhanced CT of the abdomen and pelvis with multiplanar reconstruction. Comparison: CT abdomen and pelvis on 11/24/2016 and 10/01/2016. Findings: A delayed right nephrogram is noted on the contrast enhanced portion of the yesterday`s study. On today`s study there is retention of contrast within the right renal parenchyma, renal collecting system and the entire right ureter to the level of the urinary bladder. Today`s nephrogram is striated and raises concern for pyelonephritis. There is also vicarious excretion of contrast by the gallbladder. Linear stone at the right ureteral vesicle junction is likely present and stable in position ; however, it is largely obscured by contrast in the right ureter. There is persistent dilatation of the right intra renal collecting system and ureter. Extensive inflammatory change in the right perinephric fat and thickening of Gerota`s fascia on the right increased in comparison to prior study. A known right renal cyst is unchanged. There is a region of decreased CT attenuation at the base of the urinary bladder to the right of midline. This may represent edema and is new since prior studies. Stable nonobstructing stones in the left renal collecting system. There is also some retained contrast within the left renal pelvis. The left ureter is normal in course and caliber. Inflammatory changes in the perinephric fat in Gerota`s fascia similar to prior study. Increased fluid and atelectasis at the right lung base. Minimal atelectasis at the left lung base. The liver, spleen, pancreas, adrenal glands, and biliary tree are normal. Rounded low-attenuation lesions in the gallbladder may represent sludge balls outlined by contrast. Abdominal aorta normal in caliber and displaced changes of atherosclerosis. No para aortic or retrocrural lymphadenopathy. Normal bowel gas pattern. No inflammatory changes to the bowel. No free abdomen and pelvis. There are clips around the bladder, rectum, and prostate are maintained. No acute bony abnormality. Impression : 1. Retained contrast in the right kidney, collecting system, and ureter from the contrast enhanced portion of yesterday`s study. Linear stone at the right ureterovesical junction likely stable since prior study but is partially obscured by the contrast in the right ureter. 2. Striated right nephrogram concerning for pyelonephritis. Increased inflammatory changes in the right perinephric fat and Gerota`s fascia. 3. Low-attenuation region in the urinary bladder to the right of midline raises concern for edema. 4. Stable simple right renal cyst and stable nonobstructing stones in the left renal collecting system. Small amount of retained contrast in the left renal pelvis. Stable inflammatory change in the left perinephric and Gerota`s fascia. 5. Vicarious excretion of contrast by the gallbladder with suspected sludge balls in the gallbladder lumen Please note that all CT scans at this facility use dose modulation, iterative reconstruction, and/or weight-based dosing when appropriate to reduce radiation dose to as low as reasonably achievable. Dictated by Luis A Wheat MD @ Nov 25 2016 12:21PM (Electronic Signature) Report Signed by Proxy. MTDD
--- NOTE | 2016-11-27 13:19 | CR ---
EXAMINATION: Ureteroscopy HISTORY: Intraoperative COMPARISON: CT from the same day TECHNIQUE: 3 fluoroscopic images provided FINDINGS/IMPRESSION: Operative control films demonstrate selection of the right ureter. Subsequent s tent was placed within the right renal collecting system.
== END 2016-11-25 19:47 | disposition home or self-care (01) | DRG 988 ==
LOC: MW.ED 10:18 → MW.ICU 13:41
PROVIDERS: ADMIT Internal Medicine; ATTEND Internal Medicine
PROC: 0TC67ZZ Extirpation of Matter from Right Ureter, Via Natural or Artificial Opening (ICD-10-PCS; principal; 2016-11-25)
PROC: 0T767DZ Dilation of Right Ureter with Intraluminal Device, Via Natural or Artificial Opening (ICD-10-PCS; 2016-11-25)
DX: I16.0 Hypertensive urgency (principal); N13.2 Hydronephrosis with renal and ureteral calculous obstruction; D72.829 Elevated white blood cell count, unspecified; R73.9 Hyperglycemia, unspecified; F17.200 Nicotine dependence, unspecified, uncomplicated
CPT/HCPCS: 00910; 36415; 71010; 71010-26; 74176; 74176-26; 74178; 74178-26; 76000; 76000-26; 80048; 80053; 80305; 81001; 82962; 83036; 83605; 83690; 84443; 84484; 85025; 87040; 87086; 88300; 93005; 96365; 96366; 96374; 96375; 99284; 99285-25; A9270-GY; C1769; C2625; J0744; J1170; J1650; J2250; J2405; J2704; J3010; J7040; Q9966; Q9967

== ENCOUNTER 2019-07-09 09:27 | Observation (INO) | payer SELFPAY ==
[2019-07-09] MEDS ORDERED: Aspirin 81 MG Tab.Chew PO ONE (09:31)
[2019-07-09] MEDS: Nitroglycerin 0.4 MG Tab.SL SL PRN ×3 (09:39→09:50)
[2019-07-09 10:09] LABS: BLOOD UREA NITROGEN,BUN 18 mg/dL (7.0-18.0); CARBON DIOXIDE,CO2 29.7 mmol/L (21.0-32.0); CHLORIDE,CL 106 mmol/L (98-107); GLUCOSE RANDOM 201 mg/dL (74-106); POTASSIUM,K 4.2 mmol/L (3.5-5.1); SODIUM,NA 146 mmol/L (136-148)
--- NOTE | 2019-07-09 10:15 | CR ---
Chest: Portable view of the chest was obtained. Comparison: Prior chest x-ray of 11/24/16. Heart size and mediastinum are normal. Lungs are clear with no acute parenchymal change. Previous right shoulder surgery is noted. Impression: Old ununited rib fracture noted within the right lower chest which appears stable. Slight scoliosis is noted within the spine with scattered degenerative change. Impression: 1. Findings as noted above. 2. Nothing acute is appreciated on portable chest x-ray. Diagnostic code #2 This report was dictated in MDT
[2019-07-09] MEDS ORDERED: Alum Hydrox/Mag Hydrox/Simeth 15 ML, Metoclopramide 5 MG, Lidocaine 2% 5 ML PO ONE ×3 (10:17)
[2019-07-09] MEDS ORDERED: Ondansetron 4 MG/2 ML SDV IVPUSH ONE (10:47)
[2019-07-09] MEDS ORDERED: Sodium Chloride 0.9% 1,000 ML IV ONE (11:05)
[2019-07-09] MEDS ORDERED: Morphine 4 MG/ML Syringe IVPUSH ONE (11:22)
[2019-07-09] MEDS ORDERED: Iopamidol 755 MG/ML 500 ML Multipack Bottle IVPUSH STA (11:53)
--- NOTE | 2019-07-09 12:15 | CT ---
CT chest Technique: Multiple axial sections through the chest were obtained. Intravenous contrast was utilized. Study has been performed as a pulmonary angiogram protocol. Findings: Pulmonary arteries are well-opacified. No filling defects are seen to indicate pulmonary embolism. Aorta shows no aneurysm. No pericardial thickening is seen. Visualized upper abdominal structures appear without abnormality. Lungs are clear. No acute parenchymal change is seen. Slight dependent atelectasis is seen posteriorly within both lungs. Bone window settings were reviewed. Slight degenerative change is scattered within the spine. Old ununited fracture is noted within the right lower chest. No acute bony abnormality is appreciated. Prior right shoulder surgery is noted. Impression: 1. No findings of pulmonary embolism. 2. Old ununited right lower rib fracture. 3. Nothing acute is appreciated on CT study of the chest. Diagnostic code #2 This report was dictated in MDT
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
[2019-07-09] MEDS ORDERED: Ondansetron 4 MG/2 ML SDV IVPUSH PRN (13:12)
[2019-07-09 13:14] LABS: HEMOGLOBIN A1C 6.3 % (4.5-6.2)
[2019-07-09] MEDS ORDERED: HYDROmorphone 1 MG/ML Syringe IVPUSH PRN (13:16)
[2019-07-09] MEDS ORDERED: cloNIDine 0.1 MG Tab PO ONE (13:21)
--- NOTE | 2019-07-09 13:49 | PCM.HP.2 ---
H&P History of Present Illness - General Date of Service: 07/09/19 Admit Problem/Dx: Admission Diagnosis/Problem Admission Diagnosis/Problem Chest pain Source of Information: Patient History Limitations: Reports: No Limitations - History of Present Illness Initial Comments - Free Text/Narative: This 64 year old male with pmh of CVA and tobacco abuse presented to the ED with complaints of chest pain and epigastric pain. This pain started around 0300 and woke him up from sleep. He reports the pain is sharp shooting, achey, radiates to the R upper abdomen and up into his chest. Reports he was diaphoretic at home when the pain started. Denies associated shortness of breath. He reports it kind of feels like heartburn. Nothing has made the pain better, including Nitro, Morphine or GI cocktail in ED. He reports he was feeling fine until this morning. He denies emesis, but reports nausea. No diarrhea or constipation. No urinary concerns. No fevers or chills. No neck pain or URI symptoms. No neurological deficits. No headache. No lightheadedness or dizziness. He reports he had a stroke 10 years ago which caused weakness in his L hand. He denies being on any medications currently. Denies CAD, DM or CT. He reports he smokes 1 ppd, no alcohol use and uses marijuana occasionally for chronic back pain. In the ED labwork WNL, glucose mildly elevated 201, A1c 6.3. Troponins negative x 2, CXR negative. CT angio chest was negative for PE. He was given ASA, Nitro x 3, Morphine an GI cocktail. Blood pressure elevated throughout stay in ED, 210 /100s consistently. He denies taking any antihypertensives at home. EKG SB 40- 50s No ST elevated or block noted. chest Pain Score (Numeric/FACES): 8 Epigastric Pain Score (Numeric/FACES): 2 - Related Data Allergies/Adverse Reactions: Allergies Allergy/AdvReac Type Severity Reaction Status Date / Time No Known Allergies Allergy Verified 07/09/19 15:49 Home Medications: Home Meds . [No Known Home Meds] 07/09/19 [History] Past Medical History - Past Health History Medical/Surgical History: Denies Medical/Surgical History HEENT History: Reports: None Cardiovascular History: Reports: Hypertension. Denies: Afib, Blood Clots/VTE/ DVT, CAD, Heart Failure, CT Respiratory History: Reports: None. Denies: Asthma, COPD Gastrointestinal History: Reports: GERD Genitourinary History: Reports: Renal Calculus Musculoskeletal History: Reports: None Neurological History: Reports: CVA (L hand weakness residual) Psychiatric History: Reports: None. Denies: Anxiety, Depression Endocrine/Metabolic History: Reports: None. Denies: Diabetes, Type II, Hypothyroidism Hematologic History: Reports: None Immunologic History: Reports: None Oncologic (Cancer) History: Reports: None Dermatologic History: Reports: None - Infectious Disease History Infectious Disease History: Reports: None - Past Surgical History Head Surgeries/Procedures: Reports: None HEENT Surgical History: Reports: None Cardiovascular Surgical History: Reports: None Respiratory Surgical History: Reports: None GI Surgical History: Reports: Hernia Repair/Other Male Surgical History: Reports: None Endocrine Surgical History: Reports: None Neurological Surgical History: Reports: None Musculoskeletal Surgical History: Reports: Shoulder Surgery, Other (See Below) Oncologic Surgical History: Reports: Biopsy of Breast Dermatological Surgical History: Reports: None Social & Family History - Family History Family Medical History: Noncontributory - Tobacco Use Smoking Status *Q: Current Every Day Smoker Years of Tobacco use: 43 Packs/Tins Daily: 1 - Caffeine Use Caffeine Use: Reports: Coffee, Soda - Alcohol Use Alcohol Use History: No - Recreational Drug Use Recreational Drug Use: Yes Recreational Drug Type: Reports: Marijuana/Hashish Recreational Drug Use Frequency: Rarely - Living Situation & Occupation Occupation: Employed H&P Review of Systems - Review of Systems: Review Of Systems: See Below General: Reports: No Symptoms. Denies: Fever, Chills, Malaise, Fatigue HEENT: Reports: No Symptoms. Denies: Headaches, Sinus Congestion, Vertigo Pulmonary: Reports: No Symptoms. Denies: Shortness of Breath, Cough Cardiovascular: Reports: Chest Pain (epigastric). Denies: Edema Gastrointestinal: Reports: Abdominal Pain (epigastric pain), Distension, Nausea. Denies: Black Stool, Bloody Stool, Diarrhea, Vomiting Genitourinary: Reports: No Symptoms. Denies: Dysuria, Frequency, Burning Musculoskeletal: Reports: No Symptoms. Denies: Neck Pain Skin: Reports: No Symptoms Psychiatric: Reports: No Symptoms Neurological: Reports: No Symptoms Hematologic/Lymphatic: Reports: No Symptoms Immunologic: Reports: No Symptoms Exam - Exam Exam: See Below - Vital Signs Vital Signs: Last Vital Signs Temp 96.6 F L 07/09/19 09:28 Pulse 42 L 07/09/19 12:21 Resp 12 07/09/19 12:21 BP 212/99 H 07/09/19 12:21 Pulse Ox 95 07/09/19 12:21 Weight: 80.739 kg - Exam General: Alert, Oriented, Cooperative HEENT: Conjunctiva Clear, Pupils Equal. No: Mucosa Moist & [place] (dry) Lungs: Clear to Auscultation, Normal Respiratory Effort Cardiovascular: Regular Rhythm, Bradycardia. No: Irregular Rhythm, Systolic Murmur GI/Abdominal Exam: Normal Bowel Sounds, Soft, Tender (epigastric and RUQ, + murphys sign). No: Guarding Back Exam: Normal Inspection, Full Range of Motion Extremities: Normal Inspection, Normal Range of Motion, Non-Tender, No Pedal Edema Neuro Extensive - Mental Status: Alert, Oriented x3 Neuro Extensive - Motor, Sensory, Reflexes: CN II-XII Intact Psychiatric: Alert, Normal Affect, Normal Mood - Patient Data Lab Results Last 24 hrs: Laboratory Results - last 24 hr 07/09/19 07/09/19 07/09/19 Range/Units 09:30 09:30 09:30 WBC 6.60 (4.0-11.0) K/uL RBC 4.63 (4.50-5.90) M/uL Hgb 14.2 (13.0-17.0) g/dL Hct 43.0 (38.0-50.0) % MCV 92.9 (80.0-98.0) fL MCH 30.7 (27.0-32.0) pg MCHC 33.0 (31.0-37.0) g/dL RDW Std Deviation 46.3 (28.0-62.0) fl RDW Coeff of Aishwarya 14 (11.0-15.0) % Plt Count 192 (150-400) K/uL MPV 10.20 (7.40-12.00) fL Neut % (Auto) 56.8 (48.0-80.0) % Lymph % (Auto) 32.1 (16.0-40.0) % [place] % (Auto) 9.2 (0.0-15.0) % Eos % (Auto) 1.7 (0.0-7.0) % Baso % (Auto) 0.2 (0.0-1.5) % Neut # (Auto) 3.8 (1.4-5.7) K/uL Lymph # (Auto) 2.1 (0.6-2.4) K/uL [place] # (Auto) 0.6 (0.0-0.8) K/uL Eos # (Auto) 0.1 (0.0-0.7) K/uL Baso # (Auto) 0.0 (0.0-0.1) K/uL Nucleated RBC % 0.0 /100WBC Nucleated RBCs # 0 K/uL Sodium 146 (136-148) mmol/L Potassium 4.2 (3.5-5.1) mmol/L Chloride 106 (98-107) mmol/L Carbon Dioxide 29.7 (21.0-32.0) mmol/L BUN 18 (7.0-18.0) mg/dL Creatinine 1.2 (0.8-1.3) mg/dL Est Cr Clr Drug Dosing 69.16 mL/min Estimated GFR (MDRD) > 60.0 ml/min Glucose 201 H (74-106) mg/dL Hemoglobin A1c 6.3 H (4.5-6.2) % Calcium 9.8 (8.5-10.1) mg/dL Total Bilirubin 0.2 (0.2-1.0) mg/dL AST 23 (15-37) IU/L ALT 27 (14-63) IU/L Alkaline Phosphatase 87 (46-116) U/L Troponin I < 0.050 (0.000-0.056) ng/mL Total Protein 7.7 (6.4-8.2) g/dL Albumin 3.6 (3.4-5.0) g/dL Globulin 4.1 H (2.6-4.0) g/dL Albumin/Globulin Ratio 0.9 (0.9-1.6) Lipase (73-393) U/L 07/09/19 07/09/19 Range/Units 09:30 11:20 WBC (4.0-11.0) K/uL RBC (4.50-5.90) M/uL Hgb (13.0-17.0) g/dL Hct (38.0-50.0) % MCV (80.0-98.0) fL MCH (27.0-32.0) pg MCHC (31.0-37.0) g/dL RDW Std Deviation (28.0-62.0) fl RDW Coeff of Aishwarya (11.0-15.0) % Plt Count (150-400) K/uL MPV (7.40-12.00) fL Neut % (Auto) (48.0-80.0) % Lymph % (Auto) (16.0-40.0) % [place] % (Auto) (0.0-15.0) % Eos % (Auto) (0.0-7.0) % Baso % (Auto) (0.0-1.5) % Neut # (Auto) (1.4-5.7) K/uL Lymph # (Auto) (0.6-2.4) K/uL [place] # (Auto) (0.0-0.8) K/uL Eos # (Auto) (0.0-0.7) K/uL Baso # (Auto) (0.0-0.1) K/uL Nucleated RBC % /100WBC Nucleated RBCs # K/uL Sodium (136-148) mmol/L Potassium (3.5-5.1) mmol/L Chloride (98-107) mmol/L Carbon Dioxide (21.0-32.0) mmol/L BUN (7.0-18.0) mg/dL Creatinine (0.8-1.3) mg/dL Est Cr Clr Drug Dosing mL/min Estimated GFR (MDRD) ml/min Glucose (74-106) mg/dL Hemoglobin A1c (4.5-6.2) % Calcium (8.5-10.1) mg/dL Total Bilirubin (0.2-1.0) mg/dL AST (15-37) IU/L ALT (14-63) IU/L Alkaline Phosphatase (46-116) U/L Troponin I < 0.050 (0.000-0.056) ng/mL Total Protein (6.4-8.2) g/dL Albumin (3.4-5.0) g/dL Globulin (2.6-4.0) g/dL Albumin/Globulin Ratio (0.9-1.6) Lipase 331 (73-393) U/L Result Diagrams: 07/09/19 09:30 07/09/19 09:30 EKG INTERPRETATION EKG Date: 07/09/19 Rhythm: NSR Rate (Beats/Min): 52 P-Wave: Present QRS: Normal ST-T: Normal QT: Normal Sepsis Event Note - Evaluation Sepsis Screening Result: No Definite Risk - Focused Exam Vital Signs: Vital Signs Temp Pulse Resp BP BP Pulse Ox 07/09/19 12:21 42 L 12 212/99 H 95 07/09/19 11:29 12 204/92 H 97 07/09/19 11:15 16 204/98 H 98 07/09/19 10:52 12 195/104 H 97 07/09/19 10:26 16 194/93 H 98 07/09/19 09:50 224/101 H 07/09/19 09:45 216/118 H 07/09/19 09:39 233/124 H 07/09/19 09:28 96.6 F L 52 L 18 223/124 H 98 Date Exam was Performed: 07/09/19 Time Exam was Performed: 16:40 - Problem List (1) Hypertensive urgency SNOMED Code(s): 805458459 ICD Code: I16.0 - HYPERTENSIVE URGENCY Status: Acute Current Visit: Yes (2) Abdominal pain SNOMED Code(s): 42083732 ICD Code: R10.9 - UNSPECIFIED ABDOMINAL PAIN Status: Acute Current Visit : Yes Qualifiers: Abdominal location: epigastric Qualified Code(s): R10.13 - Epigastric pain (3) Atypical chest pain SNOMED Code(s): 712772199 ICD Code: R07.89 - OTHER CHEST PAIN Status: Acute Current Visit: Yes Problem List Initiated/Reviewed/Updated: Yes Orders Last 24hrs: Active Orders 24 hr Category Date Time Status Admission Status [Patient Status] [ADT] Stat ADT 07/09/19 12:37 Active Intake and Output [RC] QSHIFT Care 07/09/19 13:12 Active Oxygen Therapy [RC] PRN Care 07/09/19 13:12 Active Telemetry Monitoring [Cardiac Monitoring] [RC] . Care 07/09/19 12:43 Active DIRECTED Up With Assistance [RC] ASDIRECTED Care 07/09/19 13:12 Active VTE/DVT Education [RC] PER UNIT ROUTINE Care 07/09/19 13:12 Active Vital Signs [RC] Q4H Care 07/09/19 13:12 Active Nothing Per Oral Diet [DIET] Diet 07/09/19 Dinner Active Abdomen Ltd [US] Urgent Exams 07/09/19 13:19 Ordered Abdomen Pelvis wo Cont [CT] Urgent Exams 07/09/19 13:11 Ordered LIPID PANEL [CHEM] AM Lab 07/10/19 05:11 Ordered TROPONIN I [CHEM] Q6H Lab 07/09/19 17:00 Ordered TROPONIN I [CHEM] Q6H Lab 07/09/19 23:00 Ordered HYDROmorphone [Dilaudid] Med 07/09/19 13:16 Active 1 mg IVPUSH Q4H PRN Ondansetron [Zofran] Med 07/09/19 13:12 Active 4 mg IVPUSH Q4H PRN Pantoprazole [ProTONIX IV] 40 mg Med 07/09/19 13:30 Active Sodium Chloride 0.9% [Normal Saline] 10 ml IV Q24H Resuscitation Status Routine Resus Stat 07/09/19 13:12 Ordered Medication Orders Hydromorphone HCl (Dilaudid) 1 mg IVPUSH Q4H PRN PRN Reason: Pain Pantoprazole Sodium 40 mg/ (Sodium Chloride) 10 mls @ 300 mls/hr IV Q24H [place] Ondansetron HCl (Zofran) 4 mg IVPUSH Q4H PRN PRN Reason: Nausea Assessment/Plan Comment:: This 64 year old male admitted with atypical chest pain, abdominal pain and hypertensive urgency 1. Atypical chest pain: - Will trend troponins, negative so far. - Monitor on telemetry - Obtain lipid panel in am - A1c 6.3, borderline DM - Plan for outpatient stress test 2. Abdominal pain: - Hx of nephrolithiasis - No ETOh use, lipase 331 - CT abdomen/pelvis and RUQ US revealed gall stones. Dr Schmidt consulted. No acute cholecystitis. Recommend adv to low fat diet and recheck labwork in am. Outpatient follow up. WOuld recommend PCP and Cardiology follow up to prepare for outpatient cholecystectomy. - Dilaudid 1 mg q4h PRN pain - UA and Utox screen, previous admission he was positive for methamphetamines 3. HTN urgency - Clonidine now. Then Monitor - Decrease BP slow, no current neurological deficits or concerns. - Try manage pain as well to lower BP - Lisinopril 10 mg now, monitor and continue in am. May need to increase. VTE prophylaxis: Lovenox GI prophylaxis: Protonix Consults: Dr Schmidt, general surgery Code Status: Full Code Dispo: 1-2 days pending improvement - Mortality Measure Prognosis:: Good
[2019-07-09] MEDS: Pantoprazole 40 MG in Sodium Chloride 0.9% 10 ML IV SCH (13:53)
--- NOTE | 2019-07-09 14:51 | US ---
Limited abdominal ultrasound: Multiple real-time images of the upper right abdomen were obtained. Comparison: No prior abdominal imaging is available at this time. Normal hepatopedal flow is seen. Visualized portions of the pancreas appear within normal limits. 2 gallstones are seen within the gallbladder. 1 of the gallstone is non-mobile and located within the gallbladder neck. Gallbladder wall shows slight thickening. No pericholecystic fluid is noted. No biliary duct dilatation is seen. Cyst appears noted off the right kidney measuring 3.0 cm. Liver appears slightly echogenic possibly due to mild fatty infiltration. Right kidney length is 10.5 cm. Impression: 1. 2 gallstones 1 of of which appears non-mobile and located within the gallbladder neck. Gallbladder wall is slightly thickened. No biliary duct dilatation is seen. 2. Possible mild fatty infiltration within the liver. 3. Cyst within the right kidney. 4. No additional abnormality is seen. Diagnostic code #3 This report was dictated in MDT
--- NOTE | 2019-07-09 14:51 | CT ---
CT abdomen and pelvis Technique: Multiple axial sections were obtained from above the dome of the diaphragm inferiorly through the pubic symphysis. Intravenous contrast is seen which is in the delayed phase. Comparison: Prior abdominal ultrasound performed earlier on same day (1:23 PM), previous CT abdomen and pelvis study is available dated 11/25/16. Findings: Visualized lung bases shows nothing acute. Liver shows no discrete abnormality. Spleen appears within normal limits. Adrenal glands show no nodule. 2 calcified gallstones are seen within the gallbladder. Both kidneys show contrast excretion. Cyst is noted within the left kidney measuring 1.3 cm. Exophytic cyst is noted off the right kidney measuring 2.9 cm. Contrast is noted within nondilated ureters as well as contrast within the bladder. Pancreas appears within normal limits. Aorta shows atherosclerotic calcification without aneurysm. No retroperitoneal adenopathy or mesenteric abnormalities are seen. No pelvic mass or adenopathy is seen. Small fat-containing right inguinal hernia is noted. Appendix is felt to be visualized and is normal in size. No free fluid or inflammatory change is appreciated. Bone window settings were reviewed which shows mild degenerative change within the spine with mild scoliosis. Impression: 1. 2 calcified gallstones within the gallbladder. 2. Other findings believed to be incidental and not acute. Diagnostic code #3 This report was dictated in MDT
[2019-07-09] MEDS ORDERED: Lisinopril 10 MG Tab PO ONE (15:19)
[2019-07-09] MEDS: Sodium Chloride 0.9% 1,000 ML IV SCH ×2 (15:39→17:32)
[2019-07-09] MEDS ORDERED: FLU Vacc QS2019-20(6MOS+)/PF 60 MCG/0.5 ML SYRINGE IM ONE (16:00)
[2019-07-09] MEDS ORDERED: cloNIDine 0.1 MG Tab PO PRN (16:39)
--- NOTE | 2019-07-09 17:30 | PCM.CONS ---
H&P History of Present Illness - General Date of Service: 07/09/19 Admit Problem/Dx: Admission Diagnosis/Problem Admission Diagnosis/Problem Chest pain Source of Information: Patient History Limitations: Reports: No Limitations - History of Present Illness Initial Comments - Free Text/Narative: Patient is a 64 year old male with a past medical history significant for nephrolithiasis, a stroke 10 years ago resulting in residual LUE weakness and uncontrolled HTN who presents with epigastric pain. It woke him up during the night. The pain radiated to the right chest/upper abdomen. It was associated with nausea and diaphoresis. He presented to the ER. His BP in the ER was 233/ 124. He was also bradycardic. He was tender in the RUQ. CBC and CMP were normal other than an elevated glycosylated hemoglobin (6.3) and elevated glucose 203. EkG showed ectopic atrial bradycardia with poor r wave progression. A RUQ US, CTA chest, CT abdomen/pelvis were performed. He was found to have 2 large gallstones in the neck of his gallbladder. Gallbladder appeared slightly thickened. He was started on lisinopril and clonidine for his HTN. His BP has slowly come down but he remains hypertensive and bradycardic. His pain is now improved but he is still slightly tender in the RUQ. The patient does not have a PCP and hasn't seen a physician since he saw Dr. Navas (urologist) for a cystoscopy in 2017. He was hypertensive at that time as well. Epigastric Pain Score (Numeric/FACES): 2 chest Pain Score (Numeric/FACES): 8 - Related Data Allergies/Adverse Reactions: Allergies Allergy/AdvReac Type Severity Reaction Status Date / Time No Known Allergies Allergy Verified 07/09/19 15:49 Home Medications: Home Meds . [No Known Home Meds] 07/09/19 [History] Past Medical History - Past Health History Medical/Surgical History: Denies Medical/Surgical History HEENT History: Reports: None Cardiovascular History: Reports: Hypertension. Denies: Afib, Blood Clots/VTE/ DVT, CAD, Heart Failure, CT Respiratory History: Reports: None. Denies: Asthma, COPD Gastrointestinal History: Reports: GERD Genitourinary History: Reports: Renal Calculus Musculoskeletal History: Reports: None Neurological History: Reports: CVA (L hand weakness residual) Psychiatric History: Reports: None. Denies: Anxiety, Depression Endocrine/Metabolic History: Reports: None. Denies: Diabetes, Type II, Hypothyroidism Hematologic History: Reports: None Immunologic History: Reports: None Oncologic (Cancer) History: Reports: None Dermatologic History: Reports: None - Infectious Disease History Infectious Disease History: Reports: None - Past Surgical History Head Surgeries/Procedures: Reports: None HEENT Surgical History: Reports: None Cardiovascular Surgical History: Reports: None Respiratory Surgical History: Reports: None GI Surgical History: Reports: Hernia Repair/Other Male Surgical History: Reports: None Endocrine Surgical History: Reports: None Neurological Surgical History: Reports: None Musculoskeletal Surgical History: Reports: Shoulder Surgery, Other (See Below) Oncologic Surgical History: Reports: Biopsy of Breast Dermatological Surgical History: Reports: None Social & Family History - Family History Family Medical History: Noncontributory - Tobacco Use Smoking Status *Q: Current Every Day Smoker Years of Tobacco use: 43 Packs/Tins Daily: 1 - Caffeine Use Caffeine Use: Reports: Coffee, Soda Other Caffeine Use: 3-4 cups/day. 7-8 sodas/day-mountain dew and orange - Recreational Drug Use Recreational Drug Use: Yes Drug Use in Last 12 Months: Yes Recreational Drug Type: Reports: Marijuana/Hashish Recreational Drug Use Frequency: Rarely - Living Situation & Occupation Occupation: Employed H&P Review of Systems - Review of Systems: Review Of Systems: Comprehensive ROS is negative, except as noted in HPI. Exam - Exam Exam: See Below - Vital Signs Vital Signs: Last Vital Signs Temp 36.5 C 07/09/19 16:47 Pulse 55 L 07/09/19 16:47 Resp 20 07/09/19 16:47 BP 189/93 H 07/09/19 16:47 Pulse Ox 95 07/09/19 16:47 Weight: 80.739 kg - Exam Quality Assessment: Supplemental Oxygen General: Alert, Oriented, Lethargic HEENT: Conjunctiva Clear, Mucosa Moist & [place] Lungs: Clear to Auscultation, Normal Respiratory Effort Cardiovascular: Regular Rate, Regular Rhythm GI/Abdominal Exam: Soft, No Distention, No Mass, Tender (Tenderness to deep palpation in the RUQ. No contreras's sign. ) Extremities: Other (Slight contracture deformity of the left hand. Well healed incision along left inner thigh from previous trauma surgery. ) Skin: Warm, Dry, Intact Neuro Extensive - Mental Status: Alert, Oriented x3 - Patient Data Lab Results Last 24 hrs: Laboratory Results - last 24 hr 07/09/19 07/09/19 07/09/19 Range/Units 09:30 09:30 09:30 WBC 6.60 (4.0-11.0) K/uL RBC 4.63 (4.50-5.90) M/uL Hgb 14.2 (13.0-17.0) g/dL Hct 43.0 (38.0-50.0) % MCV 92.9 (80.0-98.0) fL MCH 30.7 (27.0-32.0) pg MCHC 33.0 (31.0-37.0) g/dL RDW Std Deviation 46.3 (28.0-62.0) fl RDW Coeff of Aishwarya 14 (11.0-15.0) % Plt Count 192 (150-400) K/uL MPV 10.20 (7.40-12.00) fL Neut % (Auto) 56.8 (48.0-80.0) % Lymph % (Auto) 32.1 (16.0-40.0) % [place] % (Auto) 9.2 (0.0-15.0) % Eos % (Auto) 1.7 (0.0-7.0) % Baso % (Auto) 0.2 (0.0-1.5) % Neut # (Auto) 3.8 (1.4-5.7) K/uL Lymph # (Auto) 2.1 (0.6-2.4) K/uL [place] # (Auto) 0.6 (0.0-0.8) K/uL Eos # (Auto) 0.1 (0.0-0.7) K/uL Baso # (Auto) 0.0 (0.0-0.1) K/uL Nucleated RBC % 0.0 /100WBC Nucleated RBCs # 0 K/uL Sodium 146 (136-148) mmol/L Potassium 4.2 (3.5-5.1) mmol/L Chloride 106 (98-107) mmol/L Carbon Dioxide 29.7 (21.0-32.0) mmol/L BUN 18 (7.0-18.0) mg/dL Creatinine 1.2 (0.8-1.3) mg/dL Est Cr Clr Drug Dosing 69.16 mL/min Estimated GFR (MDRD) > 60.0 ml/min Glucose 201 H (74-106) mg/dL Hemoglobin A1c 6.3 H (4.5-6.2) % Calcium 9.8 (8.5-10.1) mg/dL Total Bilirubin 0.2 (0.2-1.0) mg/dL AST 23 (15-37) IU/L ALT 27 (14-63) IU/L Alkaline Phosphatase 87 (46-116) U/L Troponin I < 0.050 (0.000-0.056) ng/mL Total Protein 7.7 (6.4-8.2) g/dL Albumin 3.6 (3.4-5.0) g/dL Globulin 4.1 H (2.6-4.0) g/dL Albumin/Globulin Ratio 0.9 (0.9-1.6) Lipase (73-393) U/L Urine Color Urine Appearance Urine pH (5.0-8.0) Ur Specific [place] (1.001-1.035) Urine Protein (NEGATIVE) mg/dL Urine Glucose (UA) (NEGATIVE) mg/dL Urine Ketones (NEGATIVE) mg/dL Urine Occult Blood (NEGATIVE) Urine Nitrite (NEGATIVE) Urine Bilirubin (NEGATIVE) Urine Urobilinogen (<2.0) EU/dL Ur Leukocyte Esterase (NEGATIVE) Urine Opiates Screen (NEGATIVE) Ur Oxycodone Screen (NEGATIVE) Urine Methadone Screen (NEGATIVE) Ur Barbiturates Screen (NEGATIVE) Ur Phencyclidine Scrn (NEGATIVE) Ur Amphetamine Screen (NEGATIVE) U Methamphetamines Scrn (NEGATIVE) U Benzodiazepines Scrn (NEGATIVE) U Cocaine Metab Screen (NEGATIVE) U Marijuana (THC) Screen (NEGATIVE) 07/09/19 07/09/19 07/09/19 Range/Units 09:30 11:20 16:52 WBC (4.0-11.0) K/uL RBC (4.50-5.90) M/uL Hgb (13.0-17.0) g/dL Hct (38.0-50.0) % MCV (80.0-98.0) fL MCH (27.0-32.0) pg MCHC (31.0-37.0) g/dL RDW Std Deviation (28.0-62.0) fl RDW Coeff of Aishwarya (11.0-15.0) % Plt Count (150-400) K/uL MPV (7.40-12.00) fL Neut % (Auto) (48.0-80.0) % Lymph % (Auto) (16.0-40.0) % [place] % (Auto) (0.0-15.0) % Eos % (Auto) (0.0-7.0) % Baso % (Auto) (0.0-1.5) % Neut # (Auto) (1.4-5.7) K/uL Lymph # (Auto) (0.6-2.4) K/uL [place] # (Auto) (0.0-0.8) K/uL Eos # (Auto) (0.0-0.7) K/uL Baso # (Auto) (0.0-0.1) K/uL Nucleated RBC % /100WBC Nucleated RBCs # K/uL Sodium (136-148) mmol/L Potassium (3.5-5.1) mmol/L Chloride (98-107) mmol/L Carbon Dioxide (21.0-32.0) mmol/L BUN (7.0-18.0) mg/dL Creatinine (0.8-1.3) mg/dL Est Cr Clr Drug Dosing mL/min Estimated GFR (MDRD) ml/min Glucose (74-106) mg/dL Hemoglobin A1c (4.5-6.2) % Calcium (8.5-10.1) mg/dL Total Bilirubin (0.2-1.0) mg/dL AST (15-37) IU/L ALT (14-63) IU/L Alkaline Phosphatase (46-116) U/L Troponin I < 0.050 (0.000-0.056) ng/mL Total Protein (6.4-8.2) g/dL Albumin (3.4-5.0) g/dL Globulin (2.6-4.0) g/dL Albumin/Globulin Ratio (0.9-1.6) Lipase 331 (73-393) U/L Urine Color YELLOW Urine Appearance CLEAR Urine pH 7.0 (5.0-8.0) Ur Specific [place] 1.020 (1.001-1.035) Urine Protein NEGATIVE (NEGATIVE) mg/dL Urine Glucose (UA) 250 H (NEGATIVE) mg/dL Urine Ketones NEGATIVE (NEGATIVE) mg/dL Urine Occult Blood NEGATIVE (NEGATIVE) Urine Nitrite NEGATIVE (NEGATIVE) Urine Bilirubin NEGATIVE (NEGATIVE) Urine Urobilinogen 0.2 (<2.0) EU/dL Ur Leukocyte Esterase NEGATIVE (NEGATIVE) Urine Opiates Screen (NEGATIVE) Ur Oxycodone Screen (NEGATIVE) Urine Methadone Screen (NEGATIVE) Ur Barbiturates Screen (NEGATIVE) Ur Phencyclidine Scrn (NEGATIVE) Ur Amphetamine Screen (NEGATIVE) U Methamphetamines Scrn (NEGATIVE) U Benzodiazepines Scrn (NEGATIVE) U Cocaine Metab Screen (NEGATIVE) U Marijuana (THC) Screen (NEGATIVE) 07/09/19 Range/Units 16:52 WBC (4.0-11.0) K/uL RBC (4.50-5.90) M/uL Hgb (13.0-17.0) g/dL Hct (38.0-50.0) % MCV (80.0-98.0) fL MCH (27.0-32.0) pg MCHC (31.0-37.0) g/dL RDW Std Deviation (28.0-62.0) fl RDW Coeff of Aishwarya (11.0-15.0) % Plt Count (150-400) K/uL MPV (7.40-12.00) fL Neut % (Auto) (48.0-80.0) % Lymph % (Auto) (16.0-40.0) % [place] % (Auto) (0.0-15.0) % Eos % (Auto) (0.0-7.0) % Baso % (Auto) (0.0-1.5) % Neut # (Auto) (1.4-5.7) K/uL Lymph # (Auto) (0.6-2.4) K/uL [place] # (Auto) (0.0-0.8) K/uL Eos # (Auto) (0.0-0.7) K/uL Baso # (Auto) (0.0-0.1) K/uL Nucleated RBC % /100WBC Nucleated RBCs # K/uL Sodium (136-148) mmol/L Potassium (3.5-5.1) mmol/L Chloride (98-107) mmol/L Carbon Dioxide (21.0-32.0) mmol/L BUN (7.0-18.0) mg/dL Creatinine (0.8-1.3) mg/dL Est Cr Clr Drug Dosing mL/min Estimated GFR (MDRD) ml/min Glucose (74-106) mg/dL Hemoglobin A1c (4.5-6.2) % Calcium (8.5-10.1) mg/dL Total Bilirubin (0.2-1.0) mg/dL AST (15-37) IU/L ALT (14-63) IU/L Alkaline Phosphatase (46-116) U/L Troponin I (0.000-0.056) ng/mL Total Protein (6.4-8.2) g/dL Albumin (3.4-5.0) g/dL Globulin (2.6-4.0) g/dL Albumin/Globulin Ratio (0.9-1.6) Lipase (73-393) U/L Urine Color Urine Appearance Urine pH (5.0-8.0) Ur Specific [place] (1.001-1.035) Urine Protein (NEGATIVE) mg/dL Urine Glucose (UA) (NEGATIVE) mg/dL Urine Ketones (NEGATIVE) mg/dL Urine Occult Blood (NEGATIVE) Urine Nitrite (NEGATIVE) Urine Bilirubin (NEGATIVE) Urine Urobilinogen (<2.0) EU/dL Ur Leukocyte Esterase (NEGATIVE) Urine Opiates Screen NEGATIVE (NEGATIVE) Ur Oxycodone Screen NEGATIVE (NEGATIVE) Urine Methadone Screen NEGATIVE (NEGATIVE) Ur Barbiturates Screen NEGATIVE (NEGATIVE) Ur Phencyclidine Scrn NEGATIVE (NEGATIVE) Ur Amphetamine Screen NEGATIVE (NEGATIVE) U Methamphetamines Scrn NEGATIVE (NEGATIVE) U Benzodiazepines Scrn NEGATIVE (NEGATIVE) U Cocaine Metab Screen NEGATIVE (NEGATIVE) U Marijuana (THC) Screen NEGATIVE (NEGATIVE) Result Diagrams: 07/09/19 09:30 07/09/19 09:30 Sepsis Event Note - Evaluation Sepsis Screening Result: No Definite Risk - Focused Exam Vital Signs: Vital Signs Temp Pulse Resp BP BP Pulse Ox 07/09/19 16:47 36.5 C 55 L 20 189/93 H 95 07/09/19 15:39 202/83 H 07/09/19 15:10 36.2 C 50 L 24 H 202/83 H 96 07/09/19 14:45 45 L 208/108 H 97 07/09/19 13:53 204/104 H 07/09/19 13:26 16 204/104 H 93 L 07/09/19 12:21 42 L 12 212/99 H 95 07/09/19 11:29 12 204/92 H 97 07/09/19 11:15 16 204/98 H 98 07/09/19 10:52 12 195/104 H 97 07/09/19 10:26 16 194/93 H 98 07/09/19 09:50 224/101 H 07/09/19 09:45 216/118 H 07/09/19 09:39 233/124 H 07/09/19 09:28 35.9 C L 52 L 18 223/124 H 98 Date Exam was Performed: 07/09/19 Time Exam was Performed: 17:42 Consult PN Assessment/Plan Procedures: Procedures COMPLETE CBC W/AUTO DIFF WBC (10/01/16) COMPREHEN METABOLIC PANEL (10/01/16) CT ABD & PELVIS W/O CONTRAST (10/01/16) ELECTROCARDIOGRAM TRACING (10/01/16) EMERGENCY DEPT VISIT (10/01/16) EMERGENCY DEPT VISIT (12/08/15) EMERGENCY DEPT VISIT (10/15/15) EMERGENCY DEPT VISIT (08/03/14) HYDRATE IV INFUSION ADD-ON (10/01/16) IMMUNIZATION ADMIN (08/03/14) METABOLIC PANEL TOTAL CA (10/15/15) ROUTINE VENIPUNCTURE (10/01/16) TDAP VACCINE 7 YRS/> IM (08/03/14) THER/PROPH/DIAG INJ IV PUSH (10/01/16) THER/PROPH/DIAG INJ SC/IM (08/03/14) TX/PRO/DX INJ NEW DRUG ADDON (10/01/16) URINALYSIS AUTO W/SCOPE (10/01/16) X-RAY EXAM OF FOOT (12/08/15) (1) Symptomatic cholelithiasis SNOMED Code(s): 417296448, 549669673 Code(s): K80.20 - CALCULUS OF GALLBLADDER W/O CHOLECYSTITIS W/O OBSTRUCTION Current Visit: Yes (2) Bradycardia on ECG SNOMED Code(s): 086654769 Code(s): R00.1 - BRADYCARDIA, UNSPECIFIED Current Visit: Yes (3) Hypertensive urgency SNOMED Code(s): 717395722 Code(s): I16.0 - HYPERTENSIVE URGENCY Current Visit: Yes Problem List Initiated/Reviewed/Updated: Yes Plan: The patient and I discussed the pathophysiology of biliary disease. For symptomatic cholelithiasis, treatment is removal of the gallbladder. However, at this point it would be elective. I discussed his case with our head LIVER TRIMMER and anesthesiologist as well as my senior java j2ee developer. They agree that surgery at this time would be high risk given his acute cardiac issues. Would recommend cardiology work up to begin while in house. Will continue to follow patient along with medicine. Ok to advance diet as tolerated. Would keep this diet low fat. Pain control per medical team.
[2019-07-10 06:29] LABS: BLOOD UREA NITROGEN,BUN 9 mg/dL (7.0-18.0); CARBON DIOXIDE,CO2 26.7 mmol/L (21.0-32.0); CHLORIDE,CL 105 mmol/L (98-107); GLUCOSE RANDOM 115 mg/dL (74-106); POTASSIUM,K 3.6 mmol/L (3.5-5.1); SODIUM,NA 140 mmol/L (136-148)
[2019-07-10] MEDS ORDERED: Lisinopril 10 MG Tab PO SCH (09:00)
--- NOTE | 2019-07-10 12:37 | PCM.DCSUM1 ---
Discharge Summary - Hospital Course Brief History: This 64 year old male with pmh of CVA and tobacco abuse presented to the ED with complaints of chest pain and epigastric pain. This pain started around 0300 and woke him up from sleep. He reports the pain is sharp shooting, achey, radiates to the R upper abdomen and up into his chest. Reports he was diaphoretic at home when the pain started. Denies associated shortness of breath. He reports it kind of feels like heartburn. Nothing has made the pain better, including Nitro, Morphine or GI cocktail in ED. He reports he was feeling fine until this morning. He denies emesis, but reports nausea. No diarrhea or constipation. No urinary concerns. No fevers or chills. No neck pain or URI symptoms. No neurological deficits. No headache. No lightheadedness or dizziness. He reports he had a stroke 10 years ago which caused weakness in his L hand. He denies being on any medications currently. Denies CAD, DM or VA. He reports he smokes 1 ppd, no alcohol use and uses marijuana occasionally for chronic back pain. In the ED labwork WNL, glucose mildly elevated 201, A1c 6.3. Troponins negative x 2, CXR negative. CT angio chest was negative for PE. He was given ASA, Nitro x 3, Morphine an GI cocktail. Blood pressure elevated throughout stay in ED, 210/100s consistently. He denies taking any antihypertensives at home. EKG SB 40-50s No ST elevated or block noted. Diagnosis: Stroke: No - Discharge Data Discharge Date: 07/10/19 Discharge Disposition: Home, Self-Care 01 Condition: Stable - Referral to Home Health Primary Care Physician: PCP Unobtainable - Discharge Diagnosis/Problem(s) (1) Hypertensive urgency SNOMED Code(s): 516541250 ICD Code: I16.0 - HYPERTENSIVE URGENCY Status: Acute (2) Abdominal pain SNOMED Code(s): 45566455 ICD Code: R10.9 - UNSPECIFIED ABDOMINAL PAIN Status: Acute Qualifiers: Abdominal location: epigastric Qualified Code(s): R10.13 - Epigastric pain (3) Atypical chest pain SNOMED Code(s): 599257410 ICD Code: R07.89 - OTHER CHEST PAIN Status: Acute - Patient Summary/Data Consults: Consultations 07/09/19 15:25 Consult to Physician [CONS] Routine - Patient Instructions Diet: Heart Healthy Diet (Low fat diet) Activity: No Strenuous Activities Showering/Bathing: May Shower Notify Provider of: Fever, Increased Pain, Swelling and Redness, Drainage, Nausea and/or Vomiting - Discharge Plan *PRESCRIPTION DRUG MONITORING PROGRAM REVIEWED*: Not Applicable *COPY OF PRESCRIPTION DRUG MONITORING REPORT IN PATIENT FLORENTIN: Not Applicable Prescriptions/Med Rec: Aspirin 81 mg PO DAILY #30 tab.chew atorvaSTATin [Lipitor] 40 mg PO BEDTIME #30 tab lisinopriL [Prinivil] 10 mg PO DAILY #30 tablet Omeprazole 20 mg PO DAILY #30 tablet. Home Medications: Home Meds Aspirin 81 mg PO DAILY #30 tab.chew 07/10/19 [Rx] Omeprazole 20 mg PO DAILY #30 tablet. 07/10/19 [Rx] atorvaSTATin [Lipitor] 40 mg PO BEDTIME #30 tab 07/10/19 [Rx] lisinopriL [Prinivil] 10 mg PO DAILY #30 tablet 07/10/19 [Rx] Oxygen Therapy Mode: Room Air Patient Handouts: DASH Eating Plan, Nonspecific Chest Pain, Ujth-gv-Burg, Hypertension, Dgzs-et-Cmpj, Atorvastatin tablets, Lisinopril tablets, Aspirin, ASA oral tablets, Fat and Cholesterol Restricted Eating Plan, [id number], Omeprazole tablets (OTC) Referrals: [facility] [Outside] Juan Blackman MD [Physician] - 08/13/19 11:00 am Divya Schmidt MD [Physician] - 07/23/19 8:00 am Eris Partida MD [Physician] - 07/16/19 9:00 am - Discharge Summary/Plan Comment DC Time >30 min.: No Discharge Summary/Plan Comment: Admitting Diagnoses: Chest pain Epigastric pain HTN urgency Discharge Diagnoses: Chest pain- resolved Cholelithiasis Hyperlipidemia HTN urgency- resolved Other PMH: Substance abuse Renal stones HTN [place] was admitted secondary to chest pain, HTN urgency, and epigastric pain. For chest pain, troponins were trended, EKG remained SR without ischemic changes. Cholesterol was WNL, but he reports history of CVA. HTN urgency controlled with Clonidine and pain control with Morphine x 1 dose. He was then started on Lisinopril 10 mg. BP improved to 180 SBP then down to 140-160s. ACS ruled out. Though he will need outpatient stress test. He was sent home with ASA , Lisinopril as well as Atorvastatin for HLD. ECHO pending on discharge. He will be set up for outpatient stress test as well as follow up with new PCP and Cardiology. Epigastric pain was explored more, CT abdomen and pelvis along with RUQ US showed gallstones, with possible stone in gallbladder neck. No leukocytosis noted, no gallbladder wall thickening. Dr Schmidt consulted. Recommended outpatient follow up, along with outpatient cardiac follow up as he will likely need cholecystectomy as outpatient. he was counseled on low fat diet. Encouraged to return to ED or clinic if concerns should arise. - Patient Data Vitals - Most Recent: Last Vital Signs Temp 97.8 F 07/10/19 12:05 Pulse 64 07/10/19 12:05 Resp 16 07/10/19 12:05 BP 124/76 07/10/19 12:05 Pulse Ox 95 07/10/19 12:05 Weight - Most Recent: 80.739 kg I&O - Last 24 hours: Intake & Output 07/09/19 07/10/19 07/10/19 22:59 06:59 14:59 Intake Total 0 650 Output Total 0 850 Balance 0 -200 Lab Results - Last 24 hrs: Laboratory Results - last 24 hr 07/09/19 07/09/19 07/09/19 Range/Units 09:30 09:30 16:52 WBC (4.0-11.0) K/uL RBC (4.50-5.90) M/uL Hgb (13.0-17.0) g/dL Hct (38.0-50.0) % MCV (80.0-98.0) fL MCH (27.0-32.0) pg MCHC (31.0-37.0) g/dL RDW Std Deviation (28.0-62.0) fl RDW Coeff of Aishwarya (11.0-15.0) % Plt Count (150-400) K/uL MPV (7.40-12.00) fL Neut % (Auto) (48.0-80.0) % Lymph % (Auto) (16.0-40.0) % [place] % (Auto) (0.0-15.0) % Eos % (Auto) (0.0-7.0) % Baso % (Auto) (0.0-1.5) % Neut # (Auto) (1.4-5.7) K/uL Lymph # (Auto) (0.6-2.4) K/uL [place] # (Auto) (0.0-0.8) K/uL Eos # (Auto) (0.0-0.7) K/uL Baso # (Auto) (0.0-0.1) K/uL Nucleated RBC % /100WBC Nucleated RBCs # K/uL Sodium (136-148) mmol/L Potassium (3.5-5.1) mmol/L Chloride (98-107) mmol/L Carbon Dioxide (21.0-32.0) mmol/L BUN (7.0-18.0) mg/dL Creatinine (0.8-1.3) mg/dL Est Cr Clr Drug Dosing mL/min Estimated GFR (MDRD) ml/min Glucose (74-106) mg/dL Hemoglobin A1c 6.3 H (4.5-6.2) % Calcium (8.5-10.1) mg/dL Total Bilirubin (0.2-1.0) mg/dL AST (15-37) IU/L ALT (14-63) IU/L Alkaline Phosphatase (46-116) U/L Troponin I (0.000-0.056) ng/mL Total Protein (6.4-8.2) g/dL Albumin (3.4-5.0) g/dL Globulin (2.6-4.0) g/dL Albumin/Globulin Ratio (0.9-1.6) Triglycerides (0-200) mg/dL Cholesterol (50-200) mg/dL LDL Cholesterol, Calc (60-180) mg/dL VLDL Cholesterol (5-55) mg/dL HDL Cholesterol (40-60) mg/dL Cholesterol/HDL Ratio (3.3-6.0) Lipase 331 (73-393) U/L Urine Color YELLOW Urine Appearance CLEAR Urine pH 7.0 (5.0-8.0) Ur Specific [place] 1.020 (1.001-1.035) Urine Protein NEGATIVE (NEGATIVE) mg/dL Urine Glucose (UA) 250 H (NEGATIVE) mg/dL Urine Ketones NEGATIVE (NEGATIVE) mg/dL Urine Occult Blood NEGATIVE (NEGATIVE) Urine Nitrite NEGATIVE (NEGATIVE) Urine Bilirubin NEGATIVE (NEGATIVE) Urine Urobilinogen 0.2 (<2.0) EU/dL Ur Leukocyte Esterase NEGATIVE (NEGATIVE) Urine Opiates Screen (NEGATIVE) Ur Oxycodone Screen (NEGATIVE) Urine Methadone Screen (NEGATIVE) Ur Barbiturates Screen (NEGATIVE) Ur Phencyclidine Scrn (NEGATIVE) Ur Amphetamine Screen (NEGATIVE) U Methamphetamines Scrn (NEGATIVE) U Benzodiazepines Scrn (NEGATIVE) U Cocaine Metab Screen (NEGATIVE) U Marijuana (THC) Screen (NEGATIVE) 07/09/19 07/09/19 07/09/19 Range/Units 16:52 17:08 23:03 WBC (4.0-11.0) K/uL RBC (4.50-5.90) M/uL Hgb (13.0-17.0) g/dL Hct (38.0-50.0) % MCV (80.0-98.0) fL MCH (27.0-32.0) pg MCHC (31.0-37.0) g/dL RDW Std Deviation (28.0-62.0) fl RDW Coeff of Aishwarya (11.0-15.0) % Plt Count (150-400) K/uL MPV (7.40-12.00) fL Neut % (Auto) (48.0-80.0) % Lymph % (Auto) (16.0-40.0) % [place] % (Auto) (0.0-15.0) % Eos % (Auto) (0.0-7.0) % Baso % (Auto) (0.0-1.5) % Neut # (Auto) (1.4-5.7) K/uL Lymph # (Auto) (0.6-2.4) K/uL [place] # (Auto) (0.0-0.8) K/uL Eos # (Auto) (0.0-0.7) K/uL Baso # (Auto) (0.0-0.1) K/uL Nucleated RBC % /100WBC Nucleated RBCs # K/uL Sodium (136-148) mmol/L Potassium (3.5-5.1) mmol/L Chloride (98-107) mmol/L Carbon Dioxide (21.0-32.0) mmol/L BUN (7.0-18.0) mg/dL Creatinine (0.8-1.3) mg/dL Est Cr Clr Drug Dosing mL/min Estimated GFR (MDRD) ml/min Glucose (74-106) mg/dL Hemoglobin A1c (4.5-6.2) % Calcium (8.5-10.1) mg/dL Total Bilirubin (0.2-1.0) mg/dL AST (15-37) IU/L ALT (14-63) IU/L Alkaline Phosphatase (46-116) U/L Troponin I < 0.050 < 0.050 (0.000-0.056) ng/mL Total Protein (6.4-8.2) g/dL Albumin (3.4-5.0) g/dL Globulin (2.6-4.0) g/dL Albumin/Globulin Ratio (0.9-1.6) Triglycerides (0-200) mg/dL Cholesterol (50-200) mg/dL LDL Cholesterol, Calc (60-180) mg/dL VLDL Cholesterol (5-55) mg/dL HDL Cholesterol (40-60) mg/dL Cholesterol/HDL Ratio (3.3-6.0) Lipase (73-393) U/L Urine Color Urine Appearance Urine pH (5.0-8.0) Ur Specific Mclean (1.001-1.035) Urine Protein (NEGATIVE) mg/dL Urine Glucose (UA) (NEGATIVE) mg/dL Urine Ketones (NEGATIVE) mg/dL Urine Occult Blood (NEGATIVE) Urine Nitrite (NEGATIVE) Urine Bilirubin (NEGATIVE) Urine Urobilinogen (<2.0) EU/dL Ur Leukocyte Esterase (NEGATIVE) Urine Opiates Screen NEGATIVE (NEGATIVE) Ur Oxycodone Screen NEGATIVE (NEGATIVE) Urine Methadone Screen NEGATIVE (NEGATIVE) Ur Barbiturates Screen NEGATIVE (NEGATIVE) Ur Phencyclidine Scrn NEGATIVE (NEGATIVE) Ur Amphetamine Screen NEGATIVE (NEGATIVE) U Methamphetamines Scrn NEGATIVE (NEGATIVE) U Benzodiazepines Scrn NEGATIVE (NEGATIVE) U Cocaine Metab Screen NEGATIVE (NEGATIVE) U Marijuana (THC) Screen NEGATIVE (NEGATIVE) 07/10/19 07/10/19 Range/Units 06:00 06:00 WBC 9.03 (4.0-11.0) K/uL RBC 4.34 L (4.50-5.90) M/uL Hgb 13.4 (13.0-17.0) g/dL Hct 39.8 (38.0-50.0) % MCV 91.7 (80.0-98.0) fL MCH 30.9 (27.0-32.0) pg MCHC 33.7 (31.0-37.0) g/dL RDW Std Deviation 44.9 (28.0-62.0) fl RDW Coeff of Aishwarya 14 (11.0-15.0) % Plt Count 180 (150-400) K/uL MPV 9.90 (7.40-12.00) fL Neut % (Auto) 63.5 (48.0-80.0) % Lymph % (Auto) 26.2 (16.0-40.0) % [place] % (Auto) 8.0 (0.0-15.0) % Eos % (Auto) 2.1 (0.0-7.0) % Baso % (Auto) 0.2 (0.0-1.5) % Neut # (Auto) 5.7 (1.4-5.7) K/uL Lymph # (Auto) 2.4 (0.6-2.4) K/uL [place] # (Auto) 0.7 (0.0-0.8) K/uL Eos # (Auto) 0.2 (0.0-0.7) K/uL Baso # (Auto) 0.0 (0.0-0.1) K/uL Nucleated RBC % 0.0 /100WBC Nucleated RBCs # 0 K/uL Sodium 140 (136-148) mmol/L Potassium 3.6 (3.5-5.1) mmol/L Chloride 105 (98-107) mmol/L Carbon Dioxide 26.7 (21.0-32.0) mmol/L BUN 9 (7.0-18.0) mg/dL Creatinine 0.9 (0.8-1.3) mg/dL Est Cr Clr Drug Dosing 92.21 mL/min Estimated GFR (MDRD) > 60.0 ml/min Glucose 115 H (74-106) mg/dL Hemoglobin A1c (4.5-6.2) % Calcium 8.6 (8.5-10.1) mg/dL Total Bilirubin 0.6 (0.2-1.0) mg/dL AST 17 (15-37) IU/L ALT 25 (14-63) IU/L Alkaline Phosphatase 75 (46-116) U/L Troponin I (0.000-0.056) ng/mL Total Protein 6.7 (6.4-8.2) g/dL Albumin 3.2 L (3.4-5.0) g/dL Globulin 3.5 (2.6-4.0) g/dL Albumin/Globulin Ratio 0.9 (0.9-1.6) Triglycerides 89 (0-200) mg/dL Cholesterol 151 (50-200) mg/dL LDL Cholesterol, Calc 87 (60-180) mg/dL VLDL Cholesterol 17 (5-55) mg/dL HDL Cholesterol 46 (40-60) mg/dL Cholesterol/HDL Ratio 3.3 (3.3-6.0) Lipase (73-393) U/L Urine Color Urine Appearance Urine pH (5.0-8.0) Ur Specific Mclean (1.001-1.035) Urine Protein (NEGATIVE) mg/dL Urine Glucose (UA) (NEGATIVE) mg/dL Urine Ketones (NEGATIVE) mg/dL Urine Occult Blood (NEGATIVE) Urine Nitrite (NEGATIVE) Urine Bilirubin (NEGATIVE) Urine Urobilinogen (<2.0) EU/dL Ur Leukocyte Esterase (NEGATIVE) Urine Opiates Screen (NEGATIVE) Ur Oxycodone Screen (NEGATIVE) Urine Methadone Screen (NEGATIVE) Ur Barbiturates Screen (NEGATIVE) Ur Phencyclidine Scrn (NEGATIVE) Ur Amphetamine Screen (NEGATIVE) U Methamphetamines Scrn (NEGATIVE) U Benzodiazepines Scrn (NEGATIVE) U Cocaine Metab Screen (NEGATIVE) U Marijuana (THC) Screen (NEGATIVE) Med Orders - Current: Current Medications Clonidine HCl (Catapres) 0.1 mg PO Q8H PRN PRN Reason: SBP>190 Hydromorphone HCl (Dilaudid) 1 mg IVPUSH Q4H PRN PRN Reason: Pain Pantoprazole Sodium 40 mg/ (Sodium Chloride) 10 mls @ 300 mls/hr IV Q24H [facility] Last Admin: 07/09/19 13:53 Dose: 300 mls/hr Lisinopril (Prinivil) 10 mg PO DAILY [facility] Last Admin: 07/10/19 09:24 Dose: 10 mg Ondansetron HCl (Zofran) 4 mg IVPUSH Q4H PRN PRN Reason: Nausea Discontinued Medications Aspirin (Aspirin) 324 mg PO ONETIME ONE Stop: 07/09/19 09:32 Last Admin: 07/09/19 09:37 Dose: 324 mg Clonidine HCl (Catapres) 0.1 mg PO ONETIME ONE Stop: 07/09/19 13:22 Last Admin: 07/09/19 13:53 Dose: 0.1 mg Al Hydroxide/Mg Hydroxide 15 ml/ Metoclopramide HCl 5 mg/Lidocaine HCl 5 ml 0 ml PO ONETIME ONE Stop: 07/09/19 10:18 Last Admin: 07/09/19 10:22 Dose: 25 each Sodium Chloride (Normal Saline) 1,000 mls @ 999 mls/hr IV .Bolus ONE Stop: 07/09/19 12:05 Last Infusion: 07/09/19 12:05 Dose: 125 mls/hr Sodium Chloride (Normal Saline) 1,000 mls @ 75 mls/hr IV Q13H [facility] Last Admin: 07/09/19 17:32 Dose: Not Given Influenza Virus Vaccine (Pharmacy To Dose - Influenza Vaccine) 1 each IM ONETIME ONE Stop: 07/09/19 15:33 Influenza Virus Vaccine (Fluzone Quad [id number] Syringe) 60 mcg IM .ONCE ONE Stop: 07/09/19 16:01 Iopamidol (Isovue Multipack-370 (76%)) 50 ml IVPUSH ONETIME STA Stop: 07/09/19 11:54 Last Admin: 07/09/19 11:54 Dose: 50 ml Lisinopril (Prinivil) 10 mg PO ONETIME ONE Stop: 07/09/19 15:20 Last Admin: 07/09/19 15:39 Dose: 10 mg Morphine Sulfate (Morphine) 4 mg IVPUSH ONETIME ONE Stop: 07/09/19 11:23 Last Admin: 07/09/19 11:26 Dose: 4 mg Nitroglycerin (Nitrostat) 0.4 mg SL Q5M PRN PRN Reason: Chest Pain Last Admin: 07/09/19 09:50 Dose: 0.4 mg Ondansetron HCl (Zofran) 4 mg IVPUSH ONETIME ONE Stop: 07/09/19 10:48 Last Admin: 07/09/19 10:51 Dose: 4 mg
--- NOTE | 2019-07-10 13:11 | PCM.SN ---
- Free Text/Narrative Note: Patient is a 64 year old male who presented to the ER with symptomatic cholelithiasis and in a hypertensive crisis. His blood pressure improved overnight. His heart rate has come up to the 60s. His diet was advanced without difficulty. He had no acute events overnight. This morning he denies any abdominal pain. On physical exam he had no tenderness in the RUQ with light and deep palpation. He had no contreras's sign. Recommend cardiac work up in house if possible or as soon as possible as an outpatient. Then once this is completed and PCP is established can follow up in clinic to discuss elective cholecystectomy. Should return to ER should pain return. Call with questions or concerns.
[2019-07-10] MEDS: Pantoprazole 40 MG in Sodium Chloride 0.9% 10 ML IV SCH (15:49)
[2019-07-10 16:11] VITALS: BP 136/73; PULSE 63
== END 2019-07-10 16:30 | disposition home or self-care (01) ==
LOC: MW.ED 09:27 → MW.MS 13:05
PROVIDERS: ADMIT Internal Medicine; ATTEND Internal Medicine
DX: R07.89 Other chest pain (principal); K80.20 Calculus of gallbladder without cholecystitis without obstruction; I16.0 Hypertensive urgency; I10 Essential (primary) hypertension; E78.5 Hyperlipidemia, unspecified; I69.954 Hemiplegia and hemiparesis following unspecified cerebrovascular disease affecting left non-dominant side; N20.0 Calculus of kidney; F17.210 Nicotine dependence, cigarettes, uncomplicated; Z23 Encounter for immunization
CPT/HCPCS: 36415; 71045; 71045-26; 71275; 71275-26; 74176; 74176-26; 76705; 76705-26; 80053; 80061; 80305-QW; 81003; 83036; 83690; 84484; 85025; 90686; 93005; 93306; 96361; 96374; 96375; 96376; 99285-25; A9270-GY; C9113; G0378; J2270; J2405; J7030; J7050; Q9967

== ENCOUNTER 2019-07-12 13:22 | Emergency (ER) | payer SELFPAY ==
[2019-07-12] MEDS ORDERED: Ketorolac 30 MG/ML SDV IM ONE (13:57)
--- NOTE | 2019-07-12 14:06 | EDM.PDOC ---
ED HPI GENERAL MEDICAL PROBLEM - General Chief Complaint: Abdominal Pain Stated Complaint: GALL BLADDER Time Seen by Provider: 07/12/19 13:23 Source of Information: Reports: Patient History Limitations: Reports: No Limitations - History of Present Illness INITIAL COMMENTS - FREE TEXT/NARRATIVE: HISTORY OF PRESENT ILLNESS: Patient is a 64-year-old male discharged from the hospital yesterday and has known cholelithiasis. He is scheduled for outpatient elective surgery with Dr. Schmidt after cardiac work-up is performed as an outpatient. Was discharged home on pain medication but has not filled them. After discharge he elected to eat tacos. Denies any nausea or vomiting. Has 7 out of 10 right upper quadrant abdominal pain without radiation. No fevers. Chest pain or dyspnea. Denies any urinary symptoms. No rash. Pt already has follow up appointment scheduled 07/[address] Partida, 07/22, with DR. Schmidt and 08/[address] Blackman. REVIEW OF SYSTEMS: Other than the symptoms associated with the present events, the following is reported with regard to recent health: General: (-) fever. HENT: (-) congestion. Respiratory: (-) cough. Cardiovascular: (-) chest pain. GI: (+) abdominal pain. : (-) urinary complaints. Musculoskeletal: (-) other aches or pains. Endocrine: (-) generalized weakness. Neurological: (-) localized weakness. Skin: (-) rash PAST MEDICAL HISTORY: reviewed as per nursing notes SOCIAL HISTORY: reviewed as per nursing notes, MEDICATIONS: Per nurse's note ALLERGIES: Per nurse's note, reviewed by me PHYSICAL EXAMINATION: GENERALIZED APPEARANCE: well developed, well nourished in no distress VITAL SIGNS: Per nurse's note, reviewed by me SKIN: Warm, dry; (-) cyanosis; (-) rash. HEAD: (-) scalp swelling, (-) tenderness. EYES: (-) conjunctival pallor, (-) scleral icterus. ENMT: (-) stridor; mucous membranes moist. NECK: (-) tenderness, (-) stiffness, CHEST AND RESPIRATORY: (-) rales, (-) rhonchi, (-) wheezes; breath sounds equal bilaterally. HEART AND CARDIOVASCULAR: (-) irregularity; (-) murmur, (-) gallop. ABDOMEN AND GI: Soft; (+)RUQ tenderness, (-) guarding, (-) rebound, (-) palpable masses, EXTREMITIES: (-) deformity, (-) edema. NEURO AND PSYCH: Alert. Cranial nerves grossly intact; strength symmetric. gait steady DIAGNOSTICS: Labs ordered US performed: read by radiologist, report reviewed by myself EMERGENCY DEPARTMENT COURSE AND TREATMENT: Patient's condition remained stable during Emergency Department evaluation. Given Toradol here. The patient presents to the ED with abdominal pain. After history, physical exam, and diagnostic evaluation, the etiology for the pain is likely cholelithiasis without cholecystitis. Ultrasound essentially unchanged from prior and Dr. Schmidt has already seen the patient for the same and will discuss elective cholecystectomy as outpatient. Laboratory data was ordered. On serial exams, there are no peritoneal signs. Abdomen is soft without guarding or rebound. I think there is a very low probability of significant abdominal pathology based on today's evaluation. The patient is advised to have a followup tomorrow for a recheck and repeat abdominal exam. I also advised to return to the emergency department immediately for significant pain, fevers, not tolerating oral food or fluid, or new complaints. PLAN AND FOLLOW-UP: Patient received written and verbal instructions regarding this condition. Return to ED immediately with any new or worsening symptoms. Follow up to be arranged by patient with pcp in 1-2 days for further evaluation. Given discharge precautions. Patient expressed verbal understanding. RUQ abd Pain Score (Numeric/FACES): 8 - Related Data Allergies Allergy/AdvReac Type Severity Reaction Status Date / Time No Known Allergies Allergy Verified 07/12/19 13:40 Home Meds: Home Meds Aspirin 81 mg PO DAILY #30 tab.chew 07/10/19 [Rx] Omeprazole 20 mg PO DAILY #30 tablet. 07/10/19 [Rx] atorvaSTATin [Lipitor] 40 mg PO BEDTIME #30 tab 07/10/19 [Rx] lisinopriL [Prinivil] 10 mg PO DAILY #30 tablet 07/10/19 [Rx] Past Medical History - Past Health History Medical/Surgical History: Denies Medical/Surgical History HEENT History: Reports: None Cardiovascular History: Reports: Hypertension Respiratory History: Reports: None Gastrointestinal History: Reports: GERD Genitourinary History: Reports: Renal Calculus Musculoskeletal History: Reports: None Neurological History: Reports: CVA Psychiatric History: Reports: None Endocrine/Metabolic History: Reports: None Hematologic History: Reports: None Immunologic History: Reports: None Oncologic (Cancer) History: Reports: None Dermatologic History: Reports: None - Infectious Disease History Infectious Disease History: Reports: None - Past Surgical History Head Surgeries/Procedures: Reports: None HEENT Surgical History: Reports: None Cardiovascular Surgical History: Reports: None Respiratory Surgical History: Reports: None GI Surgical History: Reports: Hernia Repair/Other Male Surgical History: Reports: None Endocrine Surgical History: Reports: None Neurological Surgical History: Reports: None Musculoskeletal Surgical History: Reports: Shoulder Surgery, Other (See Below) Oncologic Surgical History: Reports: Biopsy of Breast Dermatological Surgical History: Reports: None Social & Family History - Family History Family Medical History: Noncontributory - Tobacco Use Smoking Status *Q: Current Every Day Smoker Years of Tobacco use: 45 Packs/Tins Daily: 1 - Caffeine Use Caffeine Use: Reports: Coffee, Soda Other Caffeine Use: 3-4 cups/day. 7-8 sodas/day-mountain dew and orange - Recreational Drug Use Recreational Drug Use: Yes Drug Use in Last 12 Months: Yes Recreational Drug Type: Reports: Marijuana/Hashish - Living Situation & Occupation Occupation: Employed ED ROS GENERAL - Review of Systems Review Of Systems: See Below (see dictation) ED EXAM, GENERAL - Physical Exam Exam: See Below (see dictation) Course - Vital Signs Last Recorded V/S: Last Vital Signs Temp 96.6 F L 07/12/19 13:35 Pulse 68 07/12/19 14:11 Resp 17 07/12/19 14:11 BP 219/107 H 07/12/19 14:11 Pulse Ox 98 07/12/19 14:11 - Orders/Labs/Meds Labs: Laboratory Tests 07/12/19 07/12/19 Range/Units 14:06 14:06 WBC 4.86 (4.0-11.0) K/uL RBC 4.48 L (4.50-5.90) M/uL Hgb 14.0 (13.0-17.0) g/dL Hct 41.2 (38.0-50.0) % MCV 92.0 (80.0-98.0) fL MCH 31.3 (27.0-32.0) pg MCHC 34.0 (31.0-37.0) g/dL RDW Std Deviation 45.0 (28.0-62.0) fl RDW Coeff of Aishwarya 13 (11.0-15.0) % Plt Count 167 (150-400) K/uL MPV 10.10 (7.40-12.00) fL Neut % (Auto) 50.2 (48.0-80.0) % Lymph % (Auto) 31.7 (16.0-40.0) % [place] % (Auto) 13.2 (0.0-15.0) % Eos % (Auto) 4.7 (0.0-7.0) % Baso % (Auto) 0.2 (0.0-1.5) % Neut # (Auto) 2.4 (1.4-5.7) K/uL Lymph # (Auto) 1.5 (0.6-2.4) K/uL [place] # (Auto) 0.6 (0.0-0.8) K/uL Eos # (Auto) 0.2 (0.0-0.7) K/uL Baso # (Auto) 0.0 (0.0-0.1) K/uL Nucleated RBC % 0.0 /100WBC Nucleated RBCs # 0 K/uL Sodium 144 (136-148) mmol/L Potassium 3.9 (3.5-5.1) mmol/L Chloride 107 (98-107) mmol/L Carbon Dioxide 28.7 (21.0-32.0) mmol/L BUN 12 (7.0-18.0) mg/dL Creatinine 1.1 (0.8-1.3) mg/dL Est Cr Clr Drug Dosing 75.44 mL/min Estimated GFR (MDRD) > 60.0 ml/min Glucose 163 H (74-106) mg/dL Calcium 9.0 (8.5-10.1) mg/dL Total Bilirubin 0.2 (0.2-1.0) mg/dL AST 15 (15-37) IU/L ALT 23 (14-63) IU/L Alkaline Phosphatase 81 (46-116) U/L Total Protein 6.9 (6.4-8.2) g/dL Albumin 3.2 L (3.4-5.0) g/dL Globulin 3.7 (2.6-4.0) g/dL Albumin/Globulin Ratio 0.9 (0.9-1.6) Lipase 153 (73-393) U/L Meds: Medications Discontinued Medications Generic Name Dose Route Start Last Admin Trade Name Jeremías PRN Reason Stop Dose Admin Ketorolac Tromethamine 30 mg 07/12/19 13:57 07/12/19 14:03 Toradol IM 07/12/19 13:58 30 mg ONETIME ONE Administration Departure - Departure Time of Disposition: 15:37 Disposition: Home, Self-Care 01 Condition: Good Clinical Impression: Cholelithiasis Abdominal pain Qualifiers: Abdominal location: epigastric Qualified Code(s): R10.13 - Epigastric pain - Discharge Information *PRESCRIPTION DRUG MONITORING PROGRAM REVIEWED*: Not Applicable *COPY OF PRESCRIPTION DRUG MONITORING REPORT IN PATIENT [place]ORENTIN: Not Applicable Instructions: Cholelithiasis, Abdominal Pain, Adult Referrals: PCP,None [Primary Care Provider] - Eris Partida MD [Physician] - 2 Days Forms: ED Department Discharge Additional Instructions: The following information is given to patients seen in the emergency department who are being discharged to home. This information is to outline your options for follow-up care. We provide all patients seen in our emergency department with a follow-up referral. The need for follow-up, as well as the timing and circumstances, are variable depending upon the specifics of your emergency department visit. If you don't have a primary care physician on staff, we will provide you with a referral. We always advise you to contact your personal physician following an emergency department visit to inform them of the circumstance of the visit and for follow-up with them and/or the need for any referrals to a consulting specialist. The emergency department will also refer you to a specialist when appropriate. This referral assures that you have the opportunity for follow-up care with a specialist. All of these measure are taken in an effort to provide you with optimal care, which includes your follow-up. Under all circumstances we always encourage you to contact your private physician who remains a resource for coordinating your care. When calling for follow-up care, please make the office aware that this follow-up is from your recent emergency room visit. If for any reason you are refused follow-up, please contact the [facility] Emergency Department at and asked to speak to the emergency department charge nurse. Sepsis Event Note - Evaluation Sepsis Screening Result: No Definite Risk - Focused Exam Vital Signs: Vital Signs Temp Pulse Resp BP Pulse Ox 07/12/19 14:11 68 17 219/107 H 98 07/12/19 13:35 96.6 F L 62 18 217/104 H 100 Date Exam was Performed: 07/12/19 Time Exam was Performed: 15:37
[2019-07-12 14:34] LABS: BLOOD UREA NITROGEN,BUN 12 mg/dL (7.0-18.0); CARBON DIOXIDE,CO2 28.7 mmol/L (21.0-32.0); CHLORIDE,CL 107 mmol/L (98-107); GLUCOSE RANDOM 163 mg/dL (74-106); LIPASE 153 U/L (73-393); POTASSIUM,K 3.9 mmol/L (3.5-5.1); SODIUM,NA 144 mmol/L (136-148)
--- NOTE | 2019-07-12 15:36 | US ---
Limited abdominal ultrasound: Multiple real-time images of the upper right abdomen were obtained. Comparison: Prior CT abdomen and pelvis study of 07/09/19 and right upper quadrant abdominal ultrasound also performed on 07/09/19. 2 gallstones are again noted within the gallbladder. 1 gallstone is mobile and other within the gallbladder neck appears non-mobile. Gallbladder wall shows no thickening. No biliary duct dilatation is appreciated. Right kidney again shows a cyst. No hydronephrosis of the right kidney is seen. Liver remains slightly echogenic likely representing fatty infiltration. Impression: 1. 2 gallstones within the gallbladder. 1 gallstone is non-mobile within the gallbladder neck and 2nd gallstone remains mobile. No biliary duct dilatation or gallbladder wall thickening is seen. 2. Fatty infiltration within the liver. 3. Stable cyst within the right kidney. Note: Findings remain stable from previous abdominal ultrasound. Diagnostic code #3 This report was dictated in MDT
[2019-07-12 15:57] VITALS: BP 211/110; PULSE 71
== END 2019-07-12 15:57 | disposition home or self-care (01) ==
LOC: MW.ED 13:22
DX: K80.20 Calculus of gallbladder without cholecystitis without obstruction (principal); I10 Essential (primary) hypertension; K21.9 Gastro-esophageal reflux disease without esophagitis; Z79.899 Other long term (current) drug therapy
CPT/HCPCS: 36415; 76705; 80053; 83690; 85025; 96372; 99284; J1885

== ENCOUNTER 2020-03-23 19:15 | Emergency (ER) | payer MEDICARE ==
[2020-03-23] MEDS ORDERED: Sodium Chloride 0.9% 10 ML Syringe FLUSH PRN (19:30)
[2020-03-23] MEDS ORDERED: Sodium Chloride 0.9% 2.5 ML Syringe FLUSH PRN (19:30)
[2020-03-23] MEDS ORDERED: Nitroglycerin 0.4 MG Tab.SL SL PRN (19:32)
[2020-03-23] MEDS ORDERED: Aspirin 81 MG Tab.Chew PO ONE (19:32)
[2020-03-23] MEDS ORDERED: Lactated Ringers 1,000 ML IV ONE (19:32)
--- NOTE | 2020-03-23 19:32 | EDM.PDOC ---
ED HPI GENERAL MEDICAL PROBLEM - General Chief Complaint: Chest Pain Stated Complaint: CHEST PAIN Time Seen by Provider: 03/23/20 19:30 Source of Information: Reports: Patient History Limitations: Reports: No Limitations - History of Present Illness INITIAL COMMENTS - FREE TEXT/NARRATIVE: 64-year-old male with history of HTN, cholelithiasis, renal calculi presents with acute onset right upper quadrant postprandial pain 1 hour prior to arrival. He ate dinner right before and he was sitting in the living room watching TV when pain came on suddenly. Pain is localized to the right upper quadrant, sharp, severe, rated 10/10, nonradiating, no alleviating factors exacerbated with food. He denies fever, chills, chest pain, shortness of breath. Associated with sweats, nausea, vomiting. He does not have a PCP, he ran out of his blood pressure medication 2 months ago. He was on previously taking ASA 81mg daily, atorvastatin 40mg qHS, omeprazole 20mg daily, and lisinopril 10mg daily. He is currently out of all of them. ROS: A 10-point review of systems, other than pertinent positives and negatives as stated per HPI, is otherwise negative Past medical history: No additional pertinent history Past Surgical history: No additional pertinent history Social history: No additional pertinent history Family history: No additional pertinent history PHYSICAL EXAM General: AOx4, GCS = 15, severe distress HEENT: dry mucous membrane Neck: supple, no meningismus, no Kernig or Brudzinski Cardiac: S1S2 RRR Respiratory: CTAB, no crackles or rales, no wheezing Abdomen: Soft, right upper quadrant > epigastric tenderness, positive Arboleda sign, no rebound or guarding, nondistended, no pulsatile mass. Back: nontender Musculoskeletal: NVI distally, no deformity Neuro: No focal deficits, CN 2 - 12 WNL. Treatments CLINICAL MOLECULAR GENETICIST: Reports: Other (see below) Other Treatments CLINICAL MOLECULAR GENETICIST: gas x Upper Chest Pain Score (Numeric/FACES): 9 - Related Data Allergies Allergy/AdvReac Type Severity Reaction Status Date / Time No Known Allergies Allergy Verified 07/12/19 13:40 Home Meds: Home Meds Aspirin [Children's Aspirin] 81 mg PO DAILY #30 tab.chew 03/23/20 [Rx] Omeprazole 20 mg PO DAILY #30 tablet. 03/23/20 [Rx] atorvaSTATin [Lipitor] 40 mg PO BEDTIME #30 tab 03/23/20 [Rx] lisinopriL [Prinivil] 10 mg PO DAILY #30 tab 03/23/20 [Rx] Past Medical History - Past Health History Medical/Surgical History: Denies Medical/Surgical History HEENT History: Reports: None Cardiovascular History: Reports: Hypertension Respiratory History: Reports: None Gastrointestinal History: Reports: GERD Genitourinary History: Reports: Renal Calculus Musculoskeletal History: Reports: None Neurological History: Reports: CVA Psychiatric History: Reports: None Endocrine/Metabolic History: Reports: None Hematologic History: Reports: None Immunologic History: Reports: None Oncologic (Cancer) History: Reports: None Dermatologic History: Reports: None - Infectious Disease History Infectious Disease History: Reports: None - Past Surgical History Head Surgeries/Procedures: Reports: None HEENT Surgical History: Reports: None Cardiovascular Surgical History: Reports: None Respiratory Surgical History: Reports: None GI Surgical History: Reports: Hernia Repair/Other Male Surgical History: Reports: None Endocrine Surgical History: Reports: None Neurological Surgical History: Reports: None Musculoskeletal Surgical History: Reports: Shoulder Surgery, Other (See Below) Oncologic Surgical History: Reports: Biopsy of Breast Dermatological Surgical History: Reports: None Social & Family History - Family History Family Medical History: No Pertinent Family History - Caffeine Use Caffeine Use: Reports: Coffee, Soda Other Caffeine Use: 3-4 cups/day. 7-8 sodas/day-mountain dew and orange - Living Situation & Occupation Occupation: Employed ED ROS GENERAL - Review of Systems Review Of Systems: See Below (see dictation) ED EXAM, GENERAL - Physical Exam Exam: See Below (see dictation) #1 Interpretation EKG Interpretation Comments: Heart rate = 53 bpm, normal sinus rhythm, normal QRS interval, no STEMI. EKG and rhythm strip interpreted by me at 1920 Course - Vital Signs Last Recorded V/S: Last Vital Signs Temp 97.7 F 03/23/20 19:21 Pulse 61 03/23/20 21:55 Resp 18 03/23/20 21:55 BP 150/84 H 03/23/20 21:55 Pulse Ox 95 03/23/20 21:55 - Orders/Labs/Meds Orders: Active Orders 24 hr Category Date Time Status Cardiac Monitoring [RC] . DIRECTED Care 03/23/20 19:30 Active EKG Documentation Completion [RC] STAT Care 03/23/20 19:30 Active Pulse Oximetry [RC] ASDIRECTED Care 03/23/20 19:30 Active Sodium Chloride 0.9% [Saline Flush] Med 03/23/20 19:30 Active 10 ml FLUSH ASDIRECTED PRN Sodium Chloride 0.9% [Saline Flush] Med 03/23/20 19:30 Active 2.5 ml FLUSH ASDIRECTED PRN Saline Lock Insert [OM.PC] Stat Oth 03/23/20 19:30 Ordered Medication Orders Sodium Chloride (Saline Flush) 10 ml FLUSH ASDIRECTED PRN PRN Reason: Keep Vein Open Last Admin: 03/23/20 19:51 Dose: 10 ml Documented by: CHRISTIN Sodium Chloride (Saline Flush) 2.5 ml FLUSH ASDIRECTED PRN PRN Reason: Keep Vein Open Last Admin: 03/23/20 19:51 Dose: 2.5 ml Documented by: CHRISTIN Labs: Laboratory Tests 03/23/20 03/23/20 03/23/20 Range/Units 19:26 19:26 19:26 WBC 7.81 (4.0-11.0) K/uL RBC 4.95 (4.50-5.90) M/uL Hgb 15.4 (13.0-17.0) g/dL Hct 45.7 (38.0-50.0) % MCV 92.3 (80.0-98.0) fL MCH 31.1 (27.0-32.0) pg MCHC 33.7 (31.0-37.0) g/dL RDW Std Deviation 44.5 (28.0-62.0) fl RDW Coeff of Aishwarya 13 (11.0-15.0) % Plt Count 216 (150-400) K/uL MPV 10.50 (7.40-12.00) fL Neut % (Auto) 41.9 L (48.0-80.0) % Lymph % (Auto) 45.5 H (16.0-40.0) % Morehouse % (Auto) 10.1 (0.0-15.0) % Eos % (Auto) 2.2 (0.0-7.0) % Baso % (Auto) 0.3 (0.0-1.5) % Neut # (Auto) 3.3 (1.4-5.7) K/uL Lymph # (Auto) 3.6 H (0.6-2.4) K/uL Morehouse # (Auto) 0.8 (0.0-0.8) K/uL Eos # (Auto) 0.2 (0.0-0.7) K/uL Baso # (Auto) 0.0 (0.0-0.1) K/uL Nucleated RBC % 0.0 /100WBC Nucleated RBCs # 0 K/uL INR 1.00 Sodium 143 (136-148) mmol/L Potassium 3.5 (3.5-5.1) mmol/L Chloride 106 (98-107) mmol/L Carbon Dioxide 29.5 (21.0-32.0) mmol/L BUN 12 (7.0-18.0) mg/dL Creatinine 1.0 (0.8-1.3) mg/dL Est Cr Clr Drug Dosing 87.32 mL/min Estimated GFR (MDRD) > 60.0 ml/min Glucose 114 H (74-106) mg/dL Calcium 9.9 (8.5-10.1) mg/dL Total Bilirubin 0.3 (0.2-1.0) mg/dL AST 16 (15-37) IU/L ALT 24 (14-63) IU/L Alkaline Phosphatase 102 (46-116) U/L Troponin I < 0.050 (0.000-0.056) ng/mL Total Protein 8.2 (6.4-8.2) g/dL Albumin 3.9 (3.4-5.0) g/dL Globulin 4.3 H (2.6-4.0) g/dL Albumin/Globulin Ratio 0.9 (0.9-1.6) Lipase (73-393) U/L SARS-CoV-2 RNA (PHILLY) (NEGATIVE) 03/23/20 03/23/20 Range/Units 19:26 19:53 WBC (4.0-11.0) K/uL RBC (4.50-5.90) M/uL Hgb (13.0-17.0) g/dL Hct (38.0-50.0) % MCV (80.0-98.0) fL MCH (27.0-32.0) pg MCHC (31.0-37.0) g/dL RDW Std Deviation (28.0-62.0) fl RDW Coeff of Aishwarya (11.0-15.0) % Plt Count (150-400) K/uL MPV (7.40-12.00) fL Neut % (Auto) (48.0-80.0) % Lymph % (Auto) (16.0-40.0) % Morehouse % (Auto) (0.0-15.0) % Eos % (Auto) (0.0-7.0) % Baso % (Auto) (0.0-1.5) % Neut # (Auto) (1.4-5.7) K/uL Lymph # (Auto) (0.6-2.4) K/uL Morehouse # (Auto) (0.0-0.8) K/uL Eos # (Auto) (0.0-0.7) K/uL Baso # (Auto) (0.0-0.1) K/uL Nucleated RBC % /100WBC Nucleated RBCs # K/uL INR Sodium (136-148) mmol/L Potassium (3.5-5.1) mmol/L Chloride (98-107) mmol/L Carbon Dioxide (21.0-32.0) mmol/L BUN (7.0-18.0) mg/dL Creatinine (0.8-1.3) mg/dL Est Cr Clr Drug Dosing mL/min Estimated GFR (MDRD) ml/min Glucose (74-106) mg/dL Calcium (8.5-10.1) mg/dL Total Bilirubin (0.2-1.0) mg/dL AST (15-37) IU/L ALT (14-63) IU/L Alkaline Phosphatase (46-116) U/L Troponin I (0.000-0.056) ng/mL Total Protein (6.4-8.2) g/dL Albumin (3.4-5.0) g/dL Globulin (2.6-4.0) g/dL Albumin/Globulin Ratio (0.9-1.6) Lipase 106 (73-393) U/L SARS-CoV-2 RNA (PHILLY) NEGATIVE (NEGATIVE) Meds: Medications Generic Name Dose Route Start Last Admin Trade Name Freq PRN Reason Stop Dose Admin Sodium Chloride 10 ml 03/23/20 19:30 03/23/20 19:51 Saline Flush FLUSH 10 ml ASDIRECTED PRN Administration Keep Vein Open Sodium Chloride 2.5 ml 03/23/20 19:30 03/23/20 19:51 Saline Flush FLUSH 2.5 ml ASDIRECTED PRN Administration Keep Vein Open Discontinued Medications Generic Name Dose Route Start Last Admin Trade Name Herbertq PRN Reason Stop Dose Admin Aspirin 324 mg 03/23/20 19:32 03/23/20 19:46 Aspirin PO 03/23/20 19:33 Not Given ONETIME ONE Al Hydroxide/Mg Hydroxide 15 0 ml 03/23/20 21:49 03/23/20 21:51 ml/ Metoclopramide HCl 5 mg/ PO 03/23/20 21:50 1 each Lidocaine HCl 5 ml ONETIME ONE Administration Dicyclomine HCl 10 mg 03/23/20 21:37 03/23/20 21:42 Bentyl PO 03/23/20 21:38 10 mg ONETIME ONE Administration Lactated Ringer's 1,000 mls @ 999 mls/hr 03/23/20 19:32 03/23/20 19:37 Ringers, Lactated IV 03/23/20 20:32 999 mls/hr .BOLUS ONE Administration Ketorolac Tromethamine 30 mg 03/23/20 19:39 03/23/20 19:45 Toradol IVPUSH 03/23/20 19:40 30 mg ONETIME ONE Administration Labetalol HCl 20 mg 03/23/20 21:37 03/23/20 21:42 Normodyne IVPUSH 03/23/20 21:38 20 mg ONETIME ONE Administration Protocol Morphine Sulfate 4 mg 03/23/20 19:39 03/23/20 19:45 Morphine IVPUSH 03/23/20 19:40 4 mg ONETIME ONE Administration Nitroglycerin 0.4 mg 03/23/20 19:32 Nitrostat SL Q5M PRN Chest Pain Ondansetron HCl 4 mg 03/23/20 19:43 03/23/20 19:43 Zofran IVPUSH 03/23/20 19:44 4 mg ONETIME ONE Administration Ondansetron HCl Confirm 03/23/20 19:41 03/23/20 19:46 Zofran Administered 03/23/20 19:42 Not Given Dose 4 mg .ROUTE .STK-MED ONE - Re-Assessments/Exams Free Text/Narrative Re-Assessment/Exam: 03/23/20 21:35 His pain is completely resolved now after IV fluids, Toradol, morphine 4mg IV. BP = 229/111, will treat with 20mg labetalol IV. 03/23/20 21:59 After IV labetalol, blood pressure improved to 150/84, his pain is completely resolved, he is currently stable for discharge. I performed a repeat exam and did not appreciate new abnormal findings. Patient exhibits normal vital signs and has a normal gait on road test. I advised the patient to return to the ER for reevaluation if symptoms worsened, including fever, worsening pain, or any other worrisome symptoms. I instructed the patient to follow up with the clinic within 2-3 days. MEDICAL DECISION MAKING: I reviewed the patients past medical records, lab and radiographic findings. I discussed the case with the patient. My differential diagnosis included: Biliary colic, hypertensive emergency, medication noncompliance. Patient was afebrile, no leukocytosis, no transaminitis, I do not suspect acute cholecystitis. Ultrasound was negative for acute cholecystitis or wall thickening or sludge. It did demonstrate cholelithiasis similar to previous presentation, consistent with biliary colic. Patient's pain is resolved after IV pain meds and amendable for outpatient follow-up for elective cholecystectomy. Patient's blood pressure improved significantly after labetalol, I refilled his blood pressure medication along with his atorvastatin, aspirin, omeprazole, he is stable for outpatient follow-up with PCP. Departure - Departure Time of Disposition: 22:02 Disposition: Home, Self-Care 01 Condition: Good Clinical Impression: Biliary colic, Hypertension, Noncompliance with medication regimen Abdominal pain Qualifiers: Abdominal location: epigastric Qualified Code(s): R10.13 - Epigastric pain - Discharge Information *PRESCRIPTION DRUG MONITORING PROGRAM REVIEWED*: Not Applicable *COPY OF PRESCRIPTION DRUG MONITORING REPORT IN PATIENT FLORENTIN: Not Applicable Prescriptions: Aspirin [Children's Aspirin] 81 mg PO DAILY #30 tab.chew atorvaSTATin [Lipitor] 40 mg PO BEDTIME #30 tab Omeprazole 20 mg PO DAILY #30 tablet. lisinopriL [Prinivil] 10 mg PO DAILY #30 tab Instructions: Biliary Colic, Adult, Managing Your Hypertension, Hypertension, Adult, [id number] Forms: ED Department Discharge Additional Instructions: The need for follow-up, as well as the timing and circumstances, are variable depending upon the specifics of your emergency department visit. If you don't have a primary care physician on staff, we will provide you with a referral. We always advise you to contact your personal physician following an emergency department visit to inform them of the circumstance of the visit and for follow-up with them and/or the need for any referrals to a consulting specialist. The emergency department will also refer you to a specialist when appropriate. This referral assures that you have the opportunity for follow-up care with a specialist. All of these measure are taken in an effort to provide you with optimal care, which includes your follow-up. Under all circumstances we always encourage you to contact your private physician who remains a resource for coordinating your care. When calling for follow-up care, please make the office aware that this follow-up is from your recent emergency room visit. If for any reason you are refused follow-up, please contact the [facility] Emergency Department at and asked to speak to the emergency department charge nurse. If you do not have a primary care doctor, please follow up with the clinics below within 3-5 days. [facility] - Primary [facility] [address] [place] [id number] [facility] [address] [place] [address] [facility] - General Surgery Professional Building [address] [facility], [address] [place] [address] Sepsis Event Note (ED) - Evaluation Sepsis Screening Result: No Definite Risk - Focused Exam Vital Signs: Vital Signs Temp Pulse Resp BP Pulse Ox 03/23/20 21:55 61 18 150/84 H 95 03/23/20 21:47 63 183/98 H 03/23/20 21:14 64 18 178/82 H 95 03/23/20 20:06 66 20 182/90 H 98 03/23/20 19:21 97.7 F 52 L 24 H 190/100 H 100 - My Orders Last 24 Hours: My Active Orders 03/23/20 19:30 Cardiac Monitoring [RC] . DIRECTED EKG Documentation Completion [RC] STAT Pulse Oximetry [RC] ASDIRECTED Sodium Chloride 0.9% [Saline Flush] 10 ml FLUSH ASDIRECTED PRN Sodium Chloride 0.9% [Saline Flush] 2.5 ml FLUSH ASDIRECTED PRN Saline Lock Insert [OM.PC] Stat - Assessment/Plan Last 24 Hours: My Active Orders 03/23/20 19:30 Cardiac Monitoring [RC] . DIRECTED EKG Documentation Completion [RC] STAT Pulse Oximetry [RC] ASDIRECTED Sodium Chloride 0.9% [Saline Flush] 10 ml FLUSH ASDIRECTED PRN Sodium Chloride 0.9% [Saline Flush] 2.5 ml FLUSH ASDIRECTED PRN Saline Lock Insert [OM.PC] Stat
[2020-03-23] MEDS ORDERED: Morphine 4 MG/ML Syringe IVPUSH ONE (19:39)
[2020-03-23] MEDS ORDERED: Ketorolac 30 MG/ML SDV IVPUSH ONE (19:39)
[2020-03-23] MEDS ORDERED: Ondansetron 4 MG/2 ML SDV ONE (19:41)
[2020-03-23] MEDS ORDERED: Ondansetron 4 MG/2 ML SDV IVPUSH ONE (19:43)
--- NOTE | 2020-03-23 19:51 | CR ---
INDICATION: Chest pain TECHNIQUE: Chest radiograph 1 view COMPARISON: 07/09/2019 FINDINGS: Mediastinum: The mediastinum is normal in appearance. The heart silhouette is normal in size and morphology. Lung: Both lungs are unremarkable in appearance. No sign of pleural effusion seen. No pneumothorax is identified. Bone and Soft tissue: Unremarkable for age. Remote fracture of the right 8th rib is noted without change. IMPRESSION: 1. No acute cardiopulmonary disease is seen. Dictated by: Juan J Amezcua MD @ 03/23/2020 19:49:29 (Electronically Signed)
[2020-03-23 20:03] LABS: BLOOD UREA NITROGEN,BUN 12 mg/dL (7.0-18.0); CARBON DIOXIDE,CO2 29.5 mmol/L (21.0-32.0); CHLORIDE,CL 106 mmol/L (98-107); GLUCOSE RANDOM 114 mg/dL (74-106); POTASSIUM,K 3.5 mmol/L (3.5-5.1); SODIUM,NA 143 mmol/L (136-148)
--- NOTE | 2020-03-23 21:16 | US ---
INDICATION: Right upper quadrant postprandial pain TECHNIQUE: Ultrasound abdomen limited. Sonographic images of the right upper quadrant were obtained using kaiser-scale and color Doppler images. COMPARISON: 07/12/2019 FINDINGS: Liver: The liver parenchyma is normal in echotexture. Gallbladder: There 2 echogenic, shadowing gallstones present within the gallbladder, 1 of which is nonmobile while the 2nd stone migrates to the gallbladder fundus. This is similar to prior examination. The gallbladder wall is normal in appearance. No pericholecystic fluid is present. A sonographic Arboleda sign was reported. Common bile duct: 5 mm. Pancreas: The visualized portions of the pancreatic head and body are normal in appearance. Right Kidney: 9.9 cm. No hydronephrosis or ureterectasis is seen. Vascular: The visualized abdominal aorta and IVC are unremarkable. IMPRESSION: 1. There 2 echogenic, shadowing gallstones present within the gallbladder, 1 of which is nonmobile while the 2nd stone migrates to the gallbladder fundus. This is similar to prior examination. Close clinical follow-up is recommended to exclude subsequent development of cholecystitis given the presence of sonographic Arboleda sign. Dictated by Juan J Amezcua MD @ 03/23/2020 9:14:05 PM Dictated by: Juan J Amezcua MD @ 03/23/2020 21:14:10 (Electronically Signed)
[2020-03-23] MEDS ORDERED: Labetalol 100 MG/20 ML MDV IVPUSH ONE (21:37)
[2020-03-23] MEDS ORDERED: Dicyclomine 10 MG Cap PO ONE (21:37)
[2020-03-23] MEDS ORDERED: Alum Hydrox/Mag Hydrox/Simeth 15 ML, Metoclopramide 5 MG, Lidocaine 2% 5 ML PO ONE ×3 (21:49)
[2020-03-23 23:34] VITALS: BP 147/80; PULSE 64
== END 2020-03-23 22:28 | disposition home or self-care (01) ==
LOC: MW.ED 19:15
DX: K80.50 Calculus of bile duct without cholangitis or cholecystitis without obstruction (principal); I10 Essential (primary) hypertension; K21.9 Gastro-esophageal reflux disease without esophagitis; Z86.73 Personal history of transient ischemic attack (TIA), and cerebral infarction without residual deficits; Z79.82 Long term (current) use of aspirin; Z79.899 Other long term (current) drug therapy; Z20.828 Contact with and (suspected) exposure to other viral communicable diseases; Z91.14 Patient's other noncompliance with medication regimen
CPT/HCPCS: 36415; 71045; 76705; 80053; 83690; 84484; 85025; 85610; 93005; 96374; 96375; 99285; A9270; J1885; J2270; J2405; J3490; J7120; U0002; 93010

== ENCOUNTER 2020-05-25 06:40 | Day surgery (SDC) | payer MEDICARE ==
[~2020-05-25 06:40] MED LIST: Acetaminophen 1,000 MG in Premix Bag 1 BAG IV ONE; Indocyanine Green 25 MG SDV SCH; Lactated Ringers 1,000 ML IV SCH; cefOXitin 2 GM in Premix Bag 1 BAG IV ONE
[2020-05-25 06:53] VITALS: BP 159/94; PULSE 84
[2020-05-25] MEDS ORDERED: Octyl 2-Cyanoacrylate 1 Tube ONE (07:19)
[2020-05-25] MEDS ORDERED: Bupivacaine 25%/EPINEPHrine/PF 0 ML ONE (07:19)
[2020-05-25] MEDS ORDERED: Scopolamine 1.5 MG Transdermal Patch TRDERM PRN (07:27)
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
[2020-05-25] MEDS ORDERED: Midazolam 1 MG/ML 2 ML SDV ONE (07:37)
[2020-05-25] MEDS ORDERED: fentaNYL 250 MCG/5 ML SDV ONE (07:37)
[2020-05-25] MEDS ORDERED: Propofol 200 MG/20 ML SDV ONE (07:37)
[2020-05-25] MEDS ORDERED: Ondansetron 4 MG/2 ML SDV ONE (07:41)
[2020-05-25] MEDS ORDERED: Rocuronium Bromide 50 MG/5 ML Syringe ONE (07:43)
[2020-05-25] MEDS ORDERED: Pregabalin 75 MG Cap PO SCH ×2 (07:45→09:00)
[2020-05-25] MEDS ORDERED: Sodium Chloride 0.9% 0 ML ONE (07:59)
[2020-05-25] MEDS ORDERED: cefOXitin 1 GM Vial ONE (07:59)
--- NOTE | 2020-05-25 17:38 | PN ---
SUBJECTIVE: The patient was here this morning for laparoscopic cholecystectomy. However, this morning, the patient came in thinking that we were just removing his stones like his niece. Spending some more time with the patient, I did go over again with him that with gallstones, we take the gallbladder out and that is different than kidney stones. The patient at this time seems to understand. He is not very interested in having his gallbladder removed. He has not had any pain for the last month or so. The patient now says that the pain is lower abdomen where his belt is. He says it is on the right and left side. It sometimes starts in his back and radiates around. I did ask why he kept on saying his right upper quadrant was with pain, but he now says no. He knows that he was saying that, but it really lower in his lower belt region that he gets the pain. He does not know why he was saying the right upper quadrant. I did go over that he did have gallstones on his ultrasound and CT scan. I went over that his gallstones could cause some issues, but if his main concern is lower pain on the right and left side that radiates around from the back, that lasts for a couple of seconds to a minute, and is not associated with food, that potentially the gallbladder is not the cause of this issue. I went over that he can potentially see his primary care provider if he is concerned with kidney stones since that is what his niece had. I did go over the CT scan that was done, I reviewed and it was done with IV contrast, so we cannot really see if there are kidney stones on it. Again, I had a long discussion with the patient. He now seems to understand that gallbladder and the kidneys are different. Currently, the patient would like to wait on any surgeries. The patient will follow up with myself and his primary care provider. Given this, I did go over if the pain comes back or is severe, whether it is right upper or his lower abdomen, he still come back into the ER. The patient understands. Did go over the CT scan that showed a small fat containing inguinal hernia, although again his pain is on both the right and left side. Case will be canceled. NAHID / MARIANNA /[id number]
== END 2020-05-25 08:33 | disposition home or self-care (01) ==
LOC: MW.SDS 06:40
PROVIDERS: ATTEND Surgery
DX: K80.20 Calculus of gallbladder without cholecystitis without obstruction (principal); Z53.09 Procedure and treatment not carried out because of other contraindication; E78.00 Pure hypercholesterolemia, unspecified; I10 Essential (primary) hypertension; K21.9 Gastro-esophageal reflux disease without esophagitis; F17.210 Nicotine dependence, cigarettes, uncomplicated; Z98.890 Other specified postprocedural states; Z79.82 Long term (current) use of aspirin; Z79.899 Other long term (current) drug therapy
CPT/HCPCS: A9270; J7120; J0694; J2001; J2250; J2405; J2704; J3010

== ENCOUNTER 2020-06-01 07:21 | Emergency (ER) | payer MEDICARE ==
[2020-06-01] MEDS ORDERED: Lactated Ringers 1,000 ML IV ONE (07:28)
[2020-06-01] MEDS ORDERED: Ondansetron 4 MG/2 ML SDV IVPUSH ONE (07:28)
--- NOTE | 2020-06-01 07:37 | EDM.PDOC ---
ED HPI GENERAL MEDICAL PROBLEM - General Chief Complaint: Genitourinary Problem Stated Complaint: KIDNEY STONES, SHORTNESS OF BREATH Time Seen by Provider: 06/01/20 07:27 Source of Information: Reports: Patient History Limitations: Reports: No Limitations - History of Present Illness INITIAL COMMENTS - FREE TEXT/NARRATIVE: 65-year-old male with history of cholelithiasis presents with right-sided abdominal pain. Abdominal pain is localized to the right middle quadrant area, radiates to the right flank, waxes and wanes over the past 5 months, increase in severity over the past 2 days, currently rated 7/10, described as sharp, denies association with food, no alleviating factors. He denies fever, chills, chest pain, nausea, vomiting, diarrhea, hematuria, postprandial pain. Dr. Timothy Chavira assessed him for cholecystectomy on 05/25/2020, apparently he was confused between kidney stones and gallstones, and he elected to defer cholecystectomy surgery. He has follow-up appointment tomorrow with Dr. Timothy Chavira. ROS: A 10-point review of systems, other than pertinent positives and negatives as stated per HPI, is otherwise negative Past medical history: No additional pertinent history Past Surgical history: No additional pertinent history Social history: No additional pertinent history Family history: No additional pertinent history PHYSICAL EXAM General: AOx4, GCS = 15, moderate distress HEENT: dry mucous membrane Neck: supple, no meningismus, no Kernig or Brudzinski Cardiac: S1S2 RRR Respiratory: CTAB, no crackles or rales, no wheezing Abdomen: Soft, ttp RUQ/ RLQ, no rebound or guarding, nondistended, no pulsatile mass. Back: nontender Musculoskeletal: NVI distally, no deformity Neuro: No focal deficits. Flank Pain Score (Numeric/FACES): 7 - Related Data Allergies Allergy/AdvReac Type Severity Reaction Status Date / Time No Known Allergies Allergy Verified 06/01/20 07:43 Home Meds: Home Meds Aspirin [Children's Aspirin] 81 mg PO DAILY #30 tab.chew 03/23/20 [Rx] lisinopriL [Prinivil] 20 mg PO DAILY 05/20/20 [History] Past Medical History - Past Health History Medical/Surgical History: Denies Medical/Surgical History HEENT History: Reports: None, Other (See Below) Other HEENT History: eyes go crossed randomly Cardiovascular History: Reports: High Cholesterol, Hypertension Respiratory History: Gastrointestinal History: Reports: Cholelithiasis, GERD Genitourinary History: Reports: Renal Calculus Musculoskeletal History: Reports: Back Pain, Chronic Neurological History: Psychiatric History: Reports: None Endocrine/Metabolic History: Reports: None Hematologic History: Reports: None Immunologic History: Reports: None Oncologic (Cancer) History: Reports: None Dermatologic History: Reports: None - Infectious Disease History Infectious Disease History: Reports: None - Past Surgical History GI Surgical History: Social & Family History - Family History Family Medical History: No Pertinent Family History - Caffeine Use Caffeine Use: Reports: Coffee, Soda Other Caffeine Use: 3-4 cups/day. 7-8 sodas/day-mountain dew and orange - Living Situation & Occupation Occupation: Employed ED ROS GENERAL - Review of Systems Review Of Systems: See Below (see dictation) ED EXAM, GENERAL - Physical Exam Exam: See Below (see dictation) Course - Vital Signs Last Recorded V/S: Last Vital Signs Temp 97.7 F 06/01/20 07:43 Pulse 55 L 06/01/20 09:45 Resp 20 06/01/20 07:43 BP 158/90 H 06/01/20 09:45 Pulse Ox 98 06/01/20 09:45 - Orders/Labs/Meds Labs: Laboratory Tests 06/01/20 06/01/20 06/01/20 Range/Units 08:00 08:00 10:47 WBC 7.87 (4.0-11.0) K/uL RBC 4.78 (4.50-5.90) M/uL Hgb 14.9 (13.0-17.0) g/dL Hct 44.2 (38.0-50.0) % MCV 92.5 (80.0-98.0) fL MCH 31.2 (27.0-32.0) pg MCHC 33.7 (31.0-37.0) g/dL RDW Std Deviation 44.0 (28.0-62.0) fl RDW Coeff of Aishwarya 13 (11.0-15.0) % Plt Count 227 (150-400) K/uL MPV 10.70 (7.40-12.00) fL Neut % (Auto) 56.5 (48.0-80.0) % Lymph % (Auto) 34.7 (16.0-40.0) % [place] % (Auto) 7.0 (0.0-15.0) % Eos % (Auto) 1.5 (0.0-7.0) % Baso % (Auto) 0.3 (0.0-1.5) % Neut # (Auto) 4.5 (1.4-5.7) K/uL Lymph # (Auto) 2.7 H (0.6-2.4) K/uL [place] # (Auto) 0.6 (0.0-0.8) K/uL Eos # (Auto) 0.1 (0.0-0.7) K/uL Baso # (Auto) 0.0 (0.0-0.1) K/uL Nucleated RBC % 0.0 /100WBC Nucleated RBCs # 0 K/uL Sodium 140 (136-148) mmol/L Potassium 4.2 (3.5-5.1) mmol/L Chloride 106 (98-107) mmol/L Carbon Dioxide 24.5 (21.0-32.0) mmol/L BUN 15 (7.0-18.0) mg/dL Creatinine 1.0 (0.8-1.3) mg/dL Est Cr Clr Drug Dosing 89.19 mL/min Estimated GFR (MDRD) > 60.0 ml/min Glucose 140 H (74-106) mg/dL Calcium 9.5 (8.5-10.1) mg/dL Total Bilirubin 0.3 (0.2-1.0) mg/dL AST 15 (15-37) IU/L ALT 23 (14-63) IU/L Alkaline Phosphatase 96 (46-116) U/L Total Protein 8.0 (6.4-8.2) g/dL Albumin 3.6 (3.4-5.0) g/dL Globulin 4.4 H (2.6-4.0) g/dL Albumin/Globulin Ratio 0.8 L (0.9-1.6) Lipase 159 (73-393) U/L Urine Color YELLOW Urine Appearance CLEAR Urine pH 5.0 (5.0-8.0) Ur Specific [place] 1.025 (1.001-1.035) Urine Protein NEGATIVE (NEGATIVE) mg/dL Urine Glucose (UA) NEGATIVE (NEGATIVE) mg/dL Urine Ketones NEGATIVE (NEGATIVE) mg/dL Urine Occult Blood NEGATIVE (NEGATIVE) Urine Nitrite POSITIVE H (NEGATIVE) Urine Bilirubin NEGATIVE (NEGATIVE) Urine Urobilinogen 0.2 (<2.0) EU/dL Ur Leukocyte Esterase NEGATIVE (NEGATIVE) Urine RBC 0-2 (0-2/HPF) Urine WBC 0-2 (0-5/HPF) Ur Epithelial Cells FEW (NONE-FEW) Urine Bacteria FEW (NEGATIVE) Urine Mucus LIGHT (NONE-MOD) Meds: Medications Discontinued Medications Generic Name Dose Route Start Last Admin Trade Name Freq PRN Reason Stop Dose Admin Lactated Ringer's 1,000 mls @ 999 mls/hr 06/01/20 07:28 06/01/20 07:44 Ringers, Lactated IV 06/01/20 08:28 999 mls/hr .BOLUS ONE Administration Ketorolac Tromethamine 30 mg 06/01/20 07:54 06/01/20 08:05 Toradol IVPUSH 06/01/20 07:55 30 mg ONETIME ONE Administration Morphine Sulfate 4 mg 06/01/20 07:54 06/01/20 08:06 Morphine IVPUSH 06/01/20 07:55 4 mg ONETIME ONE Administration Ondansetron HCl 4 mg 06/01/20 07:28 06/01/20 07:44 Zofran IVPUSH 06/01/20 07:29 4 mg ONETIME ONE Administration - Re-Assessments/Exams Free Text/Narrative Re-Assessment/Exam: 06/01/20 07:57 Ordered IV fluids, Toradol, morphine, Zofran. 06/01/20 09:09 I reassessed the patient, his pain is completely resolved. His vitals are stable at this time. 06/01/20 11:24 After IV medications in the ER, the patient improved and is currently stable for discharge. I performed a repeat exam and did not appreciate new abnormal findings. Patient exhibits normal vital signs and has a normal gait on road test. I advised the patient to return to the ER for reevaluation if symptoms worsened, including fever, worsening pain, or any other worrisome symptoms. I instructed the patient to follow up with Timothy perez. MEDICAL DECISION MAKING: I reviewed the patients past medical records, lab and radiographic findings. I discussed the case with the patient. My differential diagnosis included: Appendicitis, kidney stones, ureterolithiasis, cholelithiasis. Ultrasound demonstrated cholelithiasis with no signs of acute cholecystitis. CT demonstrated bilateral renal calculi with no ureteral calculi or hydronephrosis. He does not have a UTI. He does not require emergent urological consultation. Abdominal pain was resolved after IV fluids, Toradol, his biliary colic pain resolved, he has follow-up with surgery tomorrow already, he is stable for discharge for surgery reevaluation tomorrow for elective cholecystectomy. Departure - Departure Time of Disposition: 11:27 Disposition: Home, Self-Care 01 Condition: Good Clinical Impression: Kidney stone, Nephrolithiasis, Biliary colic - Discharge Information *PRESCRIPTION DRUG MONITORING PROGRAM REVIEWED*: Not Applicable *COPY OF PRESCRIPTION DRUG MONITORING REPORT IN PATIENT [place]ORENT[place]: Not Applicable Instructions: Kidney Stones, [id number], Biliary Colic, Adult Referrals: Timothy Chavira MD [Primary Care Provider] - 06/02/20 Forms: ED Department Discharge Additional Instructions: The need for follow-up, as well as the timing and circumstances, are variable depending upon the specifics of your emergency department visit. If you don't have a primary care physician on staff, we will provide you with a referral. We always advise you to contact your personal physician following an emergency department visit to inform them of the circumstance of the visit and for follow-up with them and/or the need for any referrals to a consulting specialist. The emergency department will also refer you to a specialist when appropriate. This referral assures that you have the opportunity for follow-up care with a specialist. All of these measure are taken in an effort to provide you with optimal care, which includes your follow-up. Under all circumstances we always encourage you to contact your private physician who remains a resource for coordinating your care. When calling for follow-up care, please make the office aware that this follow-up is from your recent emergency room visit. If for any reason you are refused follow-up, please contact the [facility] Emergency Department at and asked to speak to the emergency department charge nurse. If you do not have a primary care doctor, please follow up with the clinics below within 3-5 days. [facility] - [facility] [address] [place] [id number] [facility] [address] [place] [id number] Sepsis Event Note (ED) - Focused Exam Vital Signs: Vital Signs Temp Pulse Resp BP Pulse Ox 06/01/20 09:45 55 L 158/90 H 98 06/01/20 09:15 53 L 165/80 H 99 06/01/20 07:43 97.7 F 82 20 138/99 H 98
[2020-06-01] MEDS ORDERED: Ketorolac 30 MG/ML SDV IVPUSH ONE (07:54)
[2020-06-01] MEDS ORDERED: Morphine 4 MG/ML Syringe IVPUSH ONE (07:54)
[2020-06-01 08:36] LABS: BLOOD UREA NITROGEN,BUN 15 mg/dL (7.0-18.0); CARBON DIOXIDE,CO2 24.5 mmol/L (21.0-32.0); CHLORIDE,CL 106 mmol/L (98-107); GLUCOSE RANDOM 140 mg/dL (74-106); LIPASE 159 U/L (73-393); POTASSIUM,K 4.2 mmol/L (3.5-5.1); SODIUM,NA 140 mmol/L (136-148)
--- NOTE | 2020-06-01 09:21 | CT ---
INDICATION: Right-sided abdominal pain COMPARISON: A similar examination with contrast dated July 09, 2019 TECHNIQUE: CT examination of the abdomen and pelvis was performed without intravenous contrast. Thin section axial images were obtained from the lung bases through the pubic symphysis. Oral contrast was not administered. Please note that all CT scans at this facility use dose modulation, iterative reconstruction, and/or weight-based dosing when appropriate to reduce radiation dose to as low as reasonably achievable. FINDINGS: LUNG BASES: The lung bases as visualized appear normal.Heart size is normal the lung bases. Atherosclerotic vascular calcifications. LIVER/BILIARY SYSTEM:The liver is normal in size and configuration given the lack of intravenous contrast. There is no visible focal mass and there is no intra- or extra hepatic biliary ductal dilatation.Cholelithiasis but no evidence of acute cholecystitis or common duct obstruction ADRENALS: Normal non-contrast appearance KIDNEYS, URETERS and BLADDER:Kidneys are normal size. There are multiple small calculi identified in both kidneys in the 1-2 millimeter range. There is a relatively large calculus in the lower pole on the left measuring about 9 millimeters. There is a right renal cyst measuring about 2.8 centimeters SPLEEN:Normal non-contrast appearance. PANCREAS: Normal non-contrast appearance. RETROPERITONEUM and MESENTERY: There is no mass, adenopathy or aortic aneurysm. Atherosclerotic vascular calcification GASTROINTESTINAL SYSTEM: There is no evidence of diverticulitis, colitis, mechanical obstruction, or appendicitis. The small bowel as visualized appears normal.Fecal retention. Diverticulosis. No acute appearing finding PELVIS: Enlarged prostate. OSSEOUS STRUCTURES and ABDOMINAL WALL: There is an age-appropriate appearance of the osseous structures.No significant abdominal wall defect. OTHER: No free fluid or free air. IMPRESSION: 1. Cholelithiasis without evidence of acute cholecystitis or common duct obstruction. 2. Bilateral nephrolithiasis without evidence of acute or recent obstructive uropathy appearance 3. No acute appearing finding or definite explanation for acute right-sided pain Please note that all CT scans at this facility use dose modulation, iterative reconstruction, and/or weight-based dosing when appropriate to reduce radiation dose to as low as reasonably achievable. Dictated by Paco Mendoza MD @ Jun 01 2020 9:10AM Signed by Dr. Paco Mendoza @ Jun 01 2020 9:19AM
--- NOTE | 2020-06-01 09:40 | US ---
Indication: Right lower quadrant pain Technique: Sonography of the abdomen was performed. The examination is limited to the structures discussed below. Comparison: None Findings: The liver is mildly enlarged at 16.2 centimeters. Echogenicity is normal and there is no focal mass or biliary ductal dilatation. There is cholelithiasis. The gallstones appear to be mobile. Wall thickness is 1 millimeter which is normal. No sonographic Arboleda`s sign or pericholecystic fluid. The common duct measures 3 millimeters which is normal The right kidney measures 11.1 x 4.5 x 5.8 centimeters and contains a cyst measuring about 3 centimeters in greatest dimension. No obstructive uropathy The pancreas is obscured by bowel gas The patient indicated the area of pain which she states is no longer present. That area overlies the abnormal gallbladder Impression: 1. There is cholelithiasis but there is no ultrasound evidence of acute cholecystitis or common duct obstruction. 2. The patient states the pain is no longer present. However, the area that he indicates to be painful immediately overlies the abnormal gallbladder 3. Please review the comment regarding additional nonacute findings Dictated by Paco Mendoza MD @ Jun 01 2020 9:34AM Signed by Dr. Paco Mendoza @ Jun 01 2020 9:38AM
[2020-06-01 16:40] VITALS: BP 160/94; PULSE 56
== END 2020-06-01 11:37 | disposition home or self-care (01) ==
LOC: MW.ED 07:21
DX: N20.0 Calculus of kidney (principal); K80.50 Calculus of bile duct without cholangitis or cholecystitis without obstruction; I10 Essential (primary) hypertension; Z79.82 Long term (current) use of aspirin; Z79.899 Other long term (current) drug therapy
CPT/HCPCS: 36415; 74176; 76705; 80053; 81001; 83690; 85025; 96374; 96375; 99284; J1885; J2270; J2405; J7120

== ENCOUNTER 2020-06-22 17:06 | Emergency (ER) | payer MEDICARE ==
--- NOTE | 2020-06-22 17:16 | PCM.EKG ---
#1 Interpretation EKG Date: 06/22/20 Time: 17:06 Rhythm: NSR Rate (Beats/Min): 61 ST-T: Normal
[2020-06-22] MEDS ORDERED: Sodium Chloride 0.9% 1,000 ML IV ONE (17:29)
[2020-06-22] MEDS ORDERED: Ondansetron 4 MG/2 ML SDV IVPUSH ONE (17:29)
[2020-06-22] MEDS ORDERED: fentaNYL 50 MCG/ML SDV IVPUSH ONE ×2 (17:29→18:44)
[2020-06-22 18:03] LABS: BLOOD UREA NITROGEN,BUN 16 mg/dL (7.0-18.0); CARBON DIOXIDE,CO2 24.8 mmol/L (21.0-32.0); CHLORIDE,CL 105 mmol/L (98-107); GLUCOSE RANDOM 139 mg/dL (74-106); LIPASE 192 U/L (73-393); POTASSIUM,K 4.1 mmol/L (3.5-5.1); SODIUM,NA 139 mmol/L (136-148)
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
[2020-06-22] MEDS ORDERED: LORazepam 2 MG/ML SDV IVPUSH ONE (18:44)
[2020-06-22] MEDS ORDERED: Alum Hydrox/Mag Hydrox/Simeth 15 ML, Metoclopramide 5 MG, Lidocaine 2% 5 ML PO ONE ×3 (18:50)
[2020-06-22] MEDS ORDERED: Iopamidol 755 MG/ML 500 ML Multipack Bottle IVPUSH STA (20:15)
--- NOTE | 2020-06-22 20:50 | CT ---
INDICATION: Abdominal pain TECHNIQUE: CT abdomen and pelvis acquired with 100 cc Isovue 370 IV contrast. COMPARISON: June 01, 2020 FINDINGS: Lower chest: Unremarkable. Liver: Hepatic steatosis. Spleen: Unremarkable. Pancreas: Unremarkable. Gallbladder and bile ducts: Cholelithiasis. Adrenal glands: Unremarkable. Kidneys: 8 mm nonobstructive stone in the left kidney. Simple cyst on the right kidney. GI tract: Unremarkable. Appendix is normal. Vascular structures: Unremarkable. Lymph nodes: Unremarkable. Miscellaneous: Unremarkable. No free air or significant free fluid. Pelvic Organs: Unremarkable. Bones: Unremarkable for age. IMPRESSION: No acute intra-abdominal process. Cholelithiasis. Hepatic steatosis. Nonobstructive 8 mm stone in the left kidney. Please note that all CT scans at this facility use dose modulation, iterative reconstruction, and/or weight-based dosing when appropriate to reduce radiation dose to as low as reasonably achievable. Dictated by Deandra Gentile MD @ Jun 22 2020 8:31PM Signed by Dr. Deandra Gentile @ Jun 22 2020 8:48PM
[2020-06-22 21:37] VITALS: BP 128/70; PULSE 62
== END 2020-06-22 21:35 | disposition home or self-care (01) ==
LOC: MW.ED 17:06
DX: K80.20 Calculus of gallbladder without cholecystitis without obstruction (principal); I10 Essential (primary) hypertension; Z72.0 Tobacco use; Z79.899 Other long term (current) drug therapy
CPT/HCPCS: 36415; 74177; 80053; 82150; 83690; 84484; 85025; 93005; 96374; 96375; 96376; 99284; A9270; J2060; J2405; J3010; J7030; Q9967; 93010; 99283

== ENCOUNTER 2020-06-30 00:40 | Inpatient (IN) | payer MEDICARE ==
[2020-06-30] MEDS ORDERED: Ondansetron 4 MG/2 ML SDV IVPUSH ONE (01:17)
[2020-06-30] MEDS ORDERED: Morphine 4 MG/ML Syringe IVPUSH ONE (01:17)
[2020-06-30] MEDS ORDERED: Dextrose 5%-0.9% NaCl 1,000 ML IV STA (01:28)
[2020-06-30] MEDS ORDERED: Dextrose 5%-0.9% NaCl 1,000 ML IV SCH (01:30)
[2020-06-30 01:41] LABS: BLOOD UREA NITROGEN,BUN 16 mg/dL (7.0-18.0); CARBON DIOXIDE,CO2 25.6 mmol/L (21.0-32.0); CHLORIDE,CL 104 mmol/L (98-107); GLUCOSE RANDOM 146 mg/dL (74-106); LIPASE 201 U/L (73-393); POTASSIUM,K 4.3 mmol/L (3.5-5.1); SODIUM,NA 139 mmol/L (136-148)
[2020-06-30] MEDS ORDERED: HYDROmorphone 1 MG/ML Syringe IVPUSH ONE ×2 (02:34→02:37)
[2020-06-30] MEDS ORDERED: HYDROmorphone 1 MG/ML Syringe ONE (02:35)
--- NOTE | 2020-06-30 03:12 | US ---
INDICATION: Right upper quadrant pain. History of cholelithiasis. COMPARISON: CT of the abdomen and pelvis from 06/22/2020 and ultrasound of the right upper quadrant from 06/01/2020 TECHNIQUE: Ultrasound examination of the right upper quadrant was performed. FINDINGS: There is a calculus lodged in the gallbladder neck measuring 2.0 centimeters in diameter, consistent with the appearance on CT. Another mobile calculus is seen measuring 1.3 centimeters in diameter. The gallbladder wall is not thickened, but a sonographic Arboleda sign is present, suggesting acute cholecystitis. The common bile duct is normal in caliber at 5 mm. The pancreatic head and body were examined, and these are normal in appearance. The abdominal aorta and visualized portions of the inferior vena cava are normal in appearance. The liver shows no sign of mass or contour abnormality, and there is no sign of ascites. There is mildly increased hepatic echogenicity consistent with fatty infiltration, consistent with appearance on CT. The right kidney is seen to have an exophytic cyst arising from the lower pole measuring 2.7 x 2.5 x 2.7 centimeters. The kidney is otherwise normal in appearance. IMPRESSION: Findings suggesting acute cholecystitis. There is a 2.0 centimeter calculus impacted in the neck of the gallbladder, and a sonographic Arboleda sign is present. No definite gallbladder wall thickening or pericholecystic fluid. No sign of biliary ductal dilatation. Mild fatty infiltration of the liver. Dictated by Thom Mccauley MD @ Jun 30 2020 3:05AM Signed by Dr. Thom Mccauley @ Jun 30 2020 3:12AM
[2020-06-30] MEDS ORDERED: Piperacillin/Tazobactam 4.5 GM in Sodium Chloride 0.9% 100 ML IV ONE (03:14)
[2020-06-30] MEDS ORDERED: hydrALAZINE 20 MG/ML SDV IVPUSH ONE (03:20)
[2020-06-30] MEDS ORDERED: Sodium Chloride 0.9% 1,000 ML IV SCH (03:30)
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
[2020-06-30] MEDS ORDERED: Ondansetron 4 MG/2 ML SDV IVPUSH PRN (08:07)
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
[2020-06-30] MEDS ORDERED: Lactated Ringers 1,000 ML IV SCH (08:15)
--- NOTE | 2020-06-30 08:41 | PCM.SN.2 ---
- Free Text/Narrative Note: Dr. Timothy Chavira has seen the patient in the past for this problem. Please transfer the consult to him. Thank you.
[2020-06-30] MEDS ORDERED: Morphine 2 MG/ML SYRINGE IVPUSH PRN (09:02)
[2020-06-30] MEDS: Lisinopril 10 MG Tab PO SCH (09:59)
[2020-06-30] MEDS ORDERED: Piperacillin/Tazobactam 3.375 GM in Sodium Chloride 0.9% 50 ML IV SCH (11:00)
--- NOTE | 2020-06-30 14:06 | CR ---
INDICATION: Preop. TECHNIQUE: Chest 1 view. COMPARISON: Chest radiograph 03/23/2020. FINDINGS: No focal consolidation, pleural effusion, or pneumothorax. Normal heart size and pulmonary vascularity. Aortic arch calcification. Postoperative changes of the right glenoid. Old right posterior 8th rib fracture. IMPRESSION: No acute cardiopulmonary findings. Dictated by Re Lucas MD @ Jun 30 2020 2:01PM Signed by Dr. Re Lucas @ Jun 30 2020 2:03PM
[2020-06-30] MEDS ORDERED: Ivermectin 3 MG Tab PO SCH (16:00)
--- NOTE | 2020-06-30 21:03 | CONS ---
DATE OF CONSULTATION: 06/30/2020 DATE OF : 1955 PRIMARY CARE PHYSICIAN: Timothy Chavira MD HISTORY OF PRESENT ILLNESS: The patient is a pleasant 65-year-old gentleman who has been to the ER several times for symptomatic cholelithiasis. He has been seen by several surgeons in the past including myself. The patient has been scheduled for his laparoscopic cholecystectomy in the past. This has always been postponed because of his hypertension. On talking to the patient, he had another episode of epigastric and right-sided pain. It did not radiate anywhere. He came to the hospital. He was seen by ER physician. He did get another ultrasound. This ultrasound again showed gallstone in the neck of the gallbladder, but no gallbladder thickening. No pericholecystic fluid. Common bile duct was 5 mm. He did not have elevation in his white cell count. LFTs were all within normal limits. However, his blood pressure was again elevated at 230/104. He was admitted to the hospitalist service for his uncontrolled hypertension. The patient has had issues with hypertension because he says he is often unable to afford his medications. This morning he is feeling good. He says his pain has all gone. His blood pressure is much better controlled now that he has medication on board. PAST MEDICAL HISTORY: Significant for; 1. Hypertension. 2. Hyperlipidemia. 3. Prediabetes. 4. History of kidney stones. CURRENT HOME MEDICATIONS: 1. Lisinopril 30 mg p.o. daily. 2. Omeprazole 20 mg p.o. daily. 3. Simvastatin 40 mg p.o. daily. 4. Aspirin 81 mg p.o. daily. PAST SURGICAL HISTORY: Leg and shoulder repair. FAMILY HISTORY: 1. Mother had breast cancer. 2. Father had diabetes. 3. Brother had lung cancer. SOCIAL: 1. Patient is a smoker. 2. Denies illicit drug use. 3. Denies any alcohol use. REVIEW OF SYSTEMS: Complete 12 plus review of systems was done. It was negative except for what is seen in HPI. LABORATORY DATA: White cell count is 8.18, hemoglobin is 14.9, and platelet count is 236. INR is 1. Sodium 139, potassium 4.3, chloride 104, bicarb 25.6, BUN 16, creatinine 1.1, total bilirubin 0.3, AST is 21, ALT is 29, alkaline phosphatase is 91. COVID was negative. IMAGING: As per HPI. PHYSICAL EXAMINATION: GENERAL: The patient is lying comfortably on his hospital bed this morning. He is in no acute distress. He is alert and oriented. HEAD: Normocephalic, atraumatic. Mouth, he appears to be missing all his teeth. LUNGS: Clear to auscultation bilaterally. No rhonchi or wheezing heard. HEART: Regular rate and rhythm. No murmur appreciated. ABDOMEN: Soft and nontender. He does have some obesity. EXTREMITIES: No edema. NEUROLOGIC: Grossly no motor or neurologic deficit noted. SKIN: Patient does have small little red batres, seems to be involving his elbows, also in his groin and creases. The patient has been told he has scabies. He says he is supposed to be getting treatment for this but has not been able to buy the medicine yet. ASSESSMENT AND PLAN: This is a pleasant 65-year-old gentleman who comes in with uncontrolled hypertension and symptomatic cholelithiasis. The patient has been in and out of the ER several times with this. His surgery has been postponed because of the blood pressure. I did talk with the Medicine team and the hospitalist, Dr. Francisco Chavira. If we can get his blood pressure controlled and get him teed up for surgery, potentially we could do this surgery tomorrow. We do have time in the OR schedule to help prevent him coming back to the ER. I did go over with the patient again risks, goals and alternatives to surgery. Risks include, but not limited to bleeding, infection, bile leak, injury to common bile duct or duodenum, need to convert to open, retained stone, loose stools, and hernia formation. The patient understands. He wishes to proceed with the surgery. I did go over the Medicine team that he could eat today, but n.p.o. after midnight. We will plan to do a surgery tomorrow as long as he is medically optimized and cleared. Also discussed with the patient about the possibility of having a residential specialist to assist on the case, the patient was okay with this. NAHID / MARIANNA /[id number] KENZIE
[2020-07-01 06:04] LABS: BLOOD UREA NITROGEN,BUN 13 mg/dL (7.0-18.0); CARBON DIOXIDE,CO2 24.9 mmol/L (21.0-32.0); CHLORIDE,CL 107 mmol/L (98-107); GLUCOSE RANDOM 114 mg/dL (74-106); POTASSIUM,K 4.5 mmol/L (3.5-5.1); SODIUM,NA 142 mmol/L (136-148)
--- NOTE | 2020-07-01 07:44 | PCM.PN ---
- General Info Date of Service: 07/01/20 Admission Dx/Problem (Free Text): Symptomatic cholelithiasis Functional Status: Reports: Pain Controlled, Tolerating Diet, Ambulating, Urinating - Review of Systems General: Reports: No Symptoms HEENT: Reports: No Symptoms Pulmonary: Reports: Shortness of Breath Cardiovascular: Reports: Chest Pain Gastrointestinal: Reports: No Symptoms Genitourinary: Reports: No Symptoms Musculoskeletal: Reports: No Symptoms Skin: Reports: No Symptoms Neurological: Reports: No Symptoms Psychiatric: Reports: No Symptoms - Patient Data Vitals - Most Recent: Last Vital Signs Temp 98.9 F 07/01/20 04:00 Pulse 71 07/01/20 04:00 Resp 18 07/01/20 04:00 BP 147/87 H 07/01/20 04:00 Pulse Ox 94 L 07/01/20 04:00 Weight - Most Recent: 206 lb 12.8 oz I&O - Last 24 Hours: Intake & Output 06/30/20 07/01/20 07/01/20 22:59 06:59 14:59 Intake Total 300 Output Total 700 100 Balance -400 -100 Lab Results Last 24 Hours: Laboratory Results - last 24 hr 06/30/20 06/30/20 06/30/20 Range/Units 01:00 14:57 17:20 WBC (4.0-11.0) K/uL RBC (4.50-5.90) M/uL Hgb (13.0-17.0) g/dL Hct (38.0-50.0) % MCV (80.0-98.0) fL MCH (27.0-32.0) pg MCHC (31.0-37.0) g/dL RDW Std Deviation (28.0-62.0) fl RDW Coeff of Aishwarya (11.0-15.0) % Plt Count (150-400) K/uL MPV (7.40-12.00) fL Neut % (Auto) (48.0-80.0) % Lymph % (Auto) (16.0-40.0) % [place] % (Auto) (0.0-15.0) % Eos % (Auto) (0.0-7.0) % Baso % (Auto) (0.0-1.5) % Neut # (Auto) (1.4-5.7) K/uL Lymph # (Auto) (0.6-2.4) K/uL [place] # (Auto) (0.0-0.8) K/uL Eos # (Auto) (0.0-0.7) K/uL Baso # (Auto) (0.0-0.1) K/uL Nucleated RBC % /100WBC Nucleated RBCs # K/uL INR 1.00 Sodium (136-148) mmol/L Potassium (3.5-5.1) mmol/L Chloride (98-107) mmol/L Carbon Dioxide (21.0-32.0) mmol/L BUN (7.0-18.0) mg/dL Creatinine (0.8-1.3) mg/dL Est Cr Clr Drug Dosing mL/min Estimated GFR (MDRD) ml/min Glucose (74-106) mg/dL Calcium (8.5-10.1) mg/dL Magnesium 2.3 (1.8-2.4) mg/dL Total Bilirubin (0.2-1.0) mg/dL AST (15-37) IU/L ALT (14-63) IU/L Alkaline Phosphatase (46-116) U/L Total Protein (6.4-8.2) g/dL Albumin (3.4-5.0) g/dL Globulin (2.6-4.0) g/dL Albumin/Globulin Ratio (0.9-1.6) TSH 3rd Generation 1.91 (0.36-3.74) uIU/mL Urine Color YELLOW Urine Appearance CLEAR Urine pH 5.5 (5.0-8.0) Ur Specific Mathews 1.020 (1.001-1.035) Urine Protein NEGATIVE (NEGATIVE) mg/dL Urine Glucose (UA) NEGATIVE (NEGATIVE) mg/dL Urine Ketones NEGATIVE (NEGATIVE) mg/dL Urine Occult Blood NEGATIVE (NEGATIVE) Urine Nitrite NEGATIVE (NEGATIVE) Urine Bilirubin NEGATIVE (NEGATIVE) Urine Urobilinogen 0.2 (<2.0) EU/dL Ur Leukocyte Esterase NEGATIVE (NEGATIVE) 07/01/20 07/01/20 Range/Units 05:33 06:20 WBC 6.78 (4.0-11.0) K/uL RBC 4.49 L (4.50-5.90) M/uL Hgb 13.8 (13.0-17.0) g/dL Hct 42.0 (38.0-50.0) % MCV 93.5 (80.0-98.0) fL MCH 30.7 (27.0-32.0) pg MCHC 32.9 (31.0-37.0) g/dL RDW Std Deviation 47.0 (28.0-62.0) fl RDW Coeff of Aishwarya 14 (11.0-15.0) % Plt Count 200 (150-400) K/uL MPV 10.20 (7.40-12.00) fL Neut % (Auto) 51.7 (48.0-80.0) % Lymph % (Auto) 37.9 (16.0-40.0) % [place] % (Auto) 8.0 (0.0-15.0) % Eos % (Auto) 2.1 (0.0-7.0) % Baso % (Auto) 0.3 (0.0-1.5) % Neut # (Auto) 3.5 (1.4-5.7) K/uL Lymph # (Auto) 2.6 H (0.6-2.4) K/uL [place] # (Auto) 0.5 (0.0-0.8) K/uL Eos # (Auto) 0.1 (0.0-0.7) K/uL Baso # (Auto) 0.0 (0.0-0.1) K/uL Nucleated RBC % 0.0 /100WBC Nucleated RBCs # 0 K/uL INR Sodium 142 (136-148) mmol/L Potassium 4.5 (3.5-5.1) mmol/L Chloride 107 (98-107) mmol/L Carbon Dioxide 24.9 (21.0-32.0) mmol/L BUN 13 (7.0-18.0) mg/dL Creatinine 1.1 (0.8-1.3) mg/dL Est Cr Clr Drug Dosing 78.88 mL/min Estimated GFR (MDRD) > 60.0 ml/min Glucose 114 H (74-106) mg/dL Calcium 9.2 (8.5-10.1) mg/dL Magnesium (1.8-2.4) mg/dL Total Bilirubin 0.4 (0.2-1.0) mg/dL AST 16 (15-37) IU/L ALT 25 (14-63) IU/L Alkaline Phosphatase 84 (46-116) U/L Total Protein 7.1 (6.4-8.2) g/dL Albumin 3.1 L (3.4-5.0) g/dL Globulin 4.0 (2.6-4.0) g/dL Albumin/Globulin Ratio 0.8 L (0.9-1.6) TSH 3rd Generation (0.36-3.74) uIU/mL Urine Color Urine Appearance Urine pH (5.0-8.0) Ur Specific Mathews (1.001-1.035) Urine Protein (NEGATIVE) mg/dL Urine Glucose (UA) (NEGATIVE) mg/dL Urine Ketones (NEGATIVE) mg/dL Urine Occult Blood (NEGATIVE) Urine Nitrite (NEGATIVE) Urine Bilirubin (NEGATIVE) Urine Urobilinogen (<2.0) EU/dL Ur Leukocyte Esterase (NEGATIVE) Med Orders - Current: Current Medications Ivermectin (Ivermectin) 18 mg PO ONETIME ONE Stop: 07/01/20 16:01 Lisinopril (Prinivil) 20 mg PO DAILY [facility] Last Admin: 06/30/20 09:59 Dose: 20 mg Documented by: Morphine Sulfate (Morphine) 2 mg IVPUSH Q4H PRN PRN Reason: Pain Ondansetron HCl (Zofran) 4 mg IVPUSH Q4H PRN PRN Reason: Nausea Discontinued Medications Hydralazine HCl (Apresoline) 20 mg IVPUSH ONETIME ONE Stop: 06/30/20 03:21 Last Admin: 06/30/20 03:29 Dose: 20 mg Documented by: Hydromorphone HCl (Dilaudid) 1 mg IVPUSH ONETIME ONE Stop: 06/30/20 02:35 Last Admin: 06/30/20 02:38 Dose: 1 mg Documented by: Hydromorphone HCl (Dilaudid) 1 mg IVPUSH ONETIME ONE Stop: 06/30/20 02:38 Last Admin: 06/30/20 02:39 Dose: Not Given Documented by: Hydromorphone HCl (Dilaudid) Confirm Administered Dose 1 mg .ROUTE .STK-MED ONE Stop: 06/30/20 02:36 Last Admin: 06/30/20 02:38 Dose: Not Given Documented by: Dextrose/Sodium Chloride (Dextrose 5%-Normal Saline) 1,000 mls @ 999 mls/hr IV ASDIRECTED [place] Dextrose/Sodium Chloride (Dextrose 5%-Normal Saline) 1,000 mls @ 999 mls/hr IV NOW STA Stop: 06/30/20 02:28 Last Admin: 06/30/20 01:29 Dose: 999 mls/hr Documented by: Piperacillin Sod/Tazobactam (Sod 4.5 gm/ Sodium Chloride) 100 mls @ 100 mls/hr IV ONETIME ONE Stop: 06/30/20 04:13 Last Admin: 06/30/20 03:32 Dose: 100 mls/hr Documented by: Sodium Chloride (Normal Saline) 1,000 mls @ 125 mls/hr IV ASDIRECTED [facility] Last Admin: 06/30/20 03:31 Dose: 125 mls/hr Documented by: Lactated Ringer's (Ringers, Lactated) 1,000 mls @ 125 mls/hr IV ASDIRECTED [facility] Last Admin: 06/30/20 08:48 Dose: 125 mls/hr Documented by: Piperacillin Sod/Tazobactam (Sod 3.375 gm/ Sodium Chloride) 50 mls @ 100 mls/hr IV Q6H [facility] Last Admin: 06/30/20 11:29 Dose: 100 mls/hr Documented by: Ivermectin (Ivermectin) 18 mg PO 06/30/20@1600 [place] Stop: 06/30/20 16:01 Last Admin: 06/30/20 16:15 Dose: 18 mg Documented by: Morphine Sulfate (Morphine) 4 mg IVPUSH ONETIME ONE Stop: 06/30/20 01:18 Last Admin: 06/30/20 01:27 Dose: 4 mg Documented by: Ondansetron HCl (Zofran) 4 mg IVPUSH ONETIME ONE Stop: 06/30/20 01:18 Last Admin: 06/30/20 01:27 Dose: 4 mg Documented by: Permethrin 60 Gm (Tube) 0 each TOP ASDIRECTED ONE Stop: 06/30/20 14:01 Last Admin: 06/30/20 15:21 Dose: Not Given Documented by: - Exam General: No Acute Distress Lungs: Normal Respiratory Effort Cardiovascular: Regular Rate GI/Abdominal Exam: Soft, Non-Tender, No Distention - Patient Data Lab Results Last 24 hrs: Laboratory Results - last 24 hr 06/30/20 06/30/20 06/30/20 Range/Units 01:00 14:57 17:20 WBC (4.0-11.0) K/uL RBC (4.50-5.90) M/uL Hgb (13.0-17.0) g/dL Hct (38.0-50.0) % MCV (80.0-98.0) fL MCH (27.0-32.0) pg MCHC (31.0-37.0) g/dL RDW Std Deviation (28.0-62.0) fl RDW Coeff of Aishwarya (11.0-15.0) % Plt Count (150-400) K/uL MPV (7.40-12.00) fL Neut % (Auto) (48.0-80.0) % Lymph % (Auto) (16.0-40.0) % [place] % (Auto) (0.0-15.0) % Eos % (Auto) (0.0-7.0) % Baso % (Auto) (0.0-1.5) % Neut # (Auto) (1.4-5.7) K/uL Lymph # (Auto) (0.6-2.4) K/uL [place] # (Auto) (0.0-0.8) K/uL Eos # (Auto) (0.0-0.7) K/uL Baso # (Auto) (0.0-0.1) K/uL Nucleated RBC % /100WBC Nucleated RBCs # K/uL INR 1.00 Sodium (136-148) mmol/L Potassium (3.5-5.1) mmol/L Chloride (98-107) mmol/L Carbon Dioxide (21.0-32.0) mmol/L BUN (7.0-18.0) mg/dL Creatinine (0.8-1.3) mg/dL Est Cr Clr Drug Dosing mL/min Estimated GFR (MDRD) ml/min Glucose (74-106) mg/dL Calcium (8.5-10.1) mg/dL Magnesium 2.3 (1.8-2.4) mg/dL Total Bilirubin (0.2-1.0) mg/dL AST (15-37) IU/L ALT (14-63) IU/L Alkaline Phosphatase (46-116) U/L Total Protein (6.4-8.2) g/dL Albumin (3.4-5.0) g/dL Globulin (2.6-4.0) g/dL Albumin/Globulin Ratio (0.9-1.6) TSH 3rd Generation 1.91 (0.36-3.74) uIU/mL Urine Color YELLOW Urine Appearance CLEAR Urine pH 5.5 (5.0-8.0) Ur Specific Mathews 1.020 (1.001-1.035) Urine Protein NEGATIVE (NEGATIVE) mg/dL Urine Glucose (UA) NEGATIVE (NEGATIVE) mg/dL Urine Ketones NEGATIVE (NEGATIVE) mg/dL Urine Occult Blood NEGATIVE (NEGATIVE) Urine Nitrite NEGATIVE (NEGATIVE) Urine Bilirubin NEGATIVE (NEGATIVE) Urine Urobilinogen 0.2 (<2.0) EU/dL Ur Leukocyte Esterase NEGATIVE (NEGATIVE) 07/01/20 07/01/20 Range/Units 05:33 06:20 WBC 6.78 (4.0-11.0) K/uL RBC 4.49 L (4.50-5.90) M/uL Hgb 13.8 (13.0-17.0) g/dL Hct 42.0 (38.0-50.0) % MCV 93.5 (80.0-98.0) fL MCH 30.7 (27.0-32.0) pg MCHC 32.9 (31.0-37.0) g/dL RDW Std Deviation 47.0 (28.0-62.0) fl RDW Coeff of Aishwarya 14 (11.0-15.0) % Plt Count 200 (150-400) K/uL MPV 10.20 (7.40-12.00) fL Neut % (Auto) 51.7 (48.0-80.0) % Lymph % (Auto) 37.9 (16.0-40.0) % [place] % (Auto) 8.0 (0.0-15.0) % Eos % (Auto) 2.1 (0.0-7.0) % Baso % (Auto) 0.3 (0.0-1.5) % Neut # (Auto) 3.5 (1.4-5.7) K/uL Lymph # (Auto) 2.6 H (0.6-2.4) K/uL [place] # (Auto) 0.5 (0.0-0.8) K/uL Eos # (Auto) 0.1 (0.0-0.7) K/uL Baso # (Auto) 0.0 (0.0-0.1) K/uL Nucleated RBC % 0.0 /100WBC Nucleated RBCs # 0 K/uL INR Sodium 142 (136-148) mmol/L Potassium 4.5 (3.5-5.1) mmol/L Chloride 107 (98-107) mmol/L Carbon Dioxide 24.9 (21.0-32.0) mmol/L BUN 13 (7.0-18.0) mg/dL Creatinine 1.1 (0.8-1.3) mg/dL Est Cr Clr Drug Dosing 78.88 mL/min Estimated GFR (MDRD) > 60.0 ml/min Glucose 114 H (74-106) mg/dL Calcium 9.2 (8.5-10.1) mg/dL Magnesium (1.8-2.4) mg/dL Total Bilirubin 0.4 (0.2-1.0) mg/dL AST 16 (15-37) IU/L ALT 25 (14-63) IU/L Alkaline Phosphatase 84 (46-116) U/L Total Protein 7.1 (6.4-8.2) g/dL Albumin 3.1 L (3.4-5.0) g/dL Globulin 4.0 (2.6-4.0) g/dL Albumin/Globulin Ratio 0.8 L (0.9-1.6) TSH 3rd Generation (0.36-3.74) uIU/mL Urine Color Urine Appearance Urine pH (5.0-8.0) Ur Specific Mathews (1.001-1.035) Urine Protein (NEGATIVE) mg/dL Urine Glucose (UA) (NEGATIVE) mg/dL Urine Ketones (NEGATIVE) mg/dL Urine Occult Blood (NEGATIVE) Urine Nitrite (NEGATIVE) Urine Bilirubin (NEGATIVE) Urine Urobilinogen (<2.0) EU/dL Ur Leukocyte Esterase (NEGATIVE) Result Diagrams: 07/02/20 05:25 07/02/20 05:25 Sepsis Event Note - Evaluation Sepsis Screening Result: No Definite Risk - Focused Exam Vital Signs: Vital Signs Temp Pulse Resp BP Pulse Ox 07/01/20 04:00 98.9 F 71 18 147/87 H 94 L 07/01/20 00:27 98.4 F 75 18 156/86 H 94 L 06/30/20 20:00 18 F L 90 18 156/67 H 92 L - Problem List & Annotations (1) Cholecystitis SNOMED Code(s): 47856862 Code(s): K81.9 - CHOLECYSTITIS, UNSPECIFIED Status: Acute - Problem List Review Problem List Initiated/Reviewed/Updated: Yes - Assessment Assessment:: 65 year old male presenting with symptomatic cholelithiasis. Patient also has scabies and uncontrolled HTN. HTN is controlled overnight on lisinopril. Actively being treated for scabies. Patient appears well this morning. Pain controlled. - Plan Plan:: Plan: -Awaiting input from Medicine Service to determine clearance for laparoscopic cholecystectomy. Continue NPO status.
[2020-07-01] MEDS ORDERED: Midazolam 1 MG/ML 2 ML SDV ONE (08:30)
[2020-07-01] MEDS ORDERED: Propofol 200 MG/20 ML SDV ONE (08:30)
[2020-07-01] MEDS ORDERED: fentaNYL 250 MCG/5 ML SDV ONE ×2 (08:30→12:57)
[2020-07-01] MEDS ORDERED: Rocuronium Bromide 50 MG/5 ML Syringe ONE (08:31)
[2020-07-01] MEDS ORDERED: Ketorolac 30 MG/ML SDV ONE (08:31)
[2020-07-01] MEDS ORDERED: Glycopyrrolate 0.2 MG/ML SDV ONE (08:31)
[2020-07-01] MEDS ORDERED: Ondansetron 4 MG/2 ML SDV ONE (08:31)
[2020-07-01] MEDS ORDERED: Lidocaine 2% 5 ML SDV ONE (08:31)
--- NOTE | 2020-07-01 08:57 | PCM.PN ---
<Michael Lozada - Last Filed: 07/01/20 11:32> - General Info Date of Service: 07/01/20 Subjective Update: Tolerated oral low fat diet yesterday. Denies any fevers, chills, SOB, chest pain or abdominal pain overnight. - Patient Data Vitals - Most Recent: Last Vital Signs Temp 36.8 C 07/01/20 08:00 Pulse 69 07/01/20 08:00 Resp 12 07/01/20 08:00 BP 146/88 H 07/01/20 08:00 Pulse Ox 96 07/01/20 08:00 Weight - Most Recent: 93.803 kg I&O - Last 24 Hours: Intake & Output 06/30/20 07/01/20 07/01/20 22:59 06:59 14:59 Intake Total 300 Output Total 700 100 Balance -400 -100 Lab Results Last 24 Hours: Laboratory Results - last 24 hr 06/30/20 06/30/20 06/30/20 Range/Units 01:00 14:57 17:20 WBC (4.0-11.0) K/uL RBC (4.50-5.90) M/uL Hgb (13.0-17.0) g/dL Hct (38.0-50.0) % MCV (80.0-98.0) fL MCH (27.0-32.0) pg MCHC (31.0-37.0) g/dL RDW Std Deviation (28.0-62.0) fl RDW Coeff of Aishwarya (11.0-15.0) % Plt Count (150-400) K/uL MPV (7.40-12.00) fL Neut % (Auto) (48.0-80.0) % Lymph % (Auto) (16.0-40.0) % [place] % (Auto) (0.0-15.0) % Eos % (Auto) (0.0-7.0) % Baso % (Auto) (0.0-1.5) % Neut # (Auto) (1.4-5.7) K/uL Lymph # (Auto) (0.6-2.4) K/uL [place] # (Auto) (0.0-0.8) K/uL Eos # (Auto) (0.0-0.7) K/uL Baso # (Auto) (0.0-0.1) K/uL Nucleated RBC % /100WBC Nucleated RBCs # K/uL INR 1.00 Sodium (136-148) mmol/L Potassium (3.5-5.1) mmol/L Chloride (98-107) mmol/L Carbon Dioxide (21.0-32.0) mmol/L BUN (7.0-18.0) mg/dL Creatinine (0.8-1.3) mg/dL Est Cr Clr Drug Dosing mL/min Estimated GFR (MDRD) ml/min Glucose (74-106) mg/dL Calcium (8.5-10.1) mg/dL Magnesium 2.3 (1.8-2.4) mg/dL Total Bilirubin (0.2-1.0) mg/dL AST (15-37) IU/L ALT (14-63) IU/L Alkaline Phosphatase (46-116) U/L Total Protein (6.4-8.2) g/dL Albumin (3.4-5.0) g/dL Globulin (2.6-4.0) g/dL Albumin/Globulin Ratio (0.9-1.6) TSH 3rd Generation 1.91 (0.36-3.74) uIU/mL Urine Color YELLOW Urine Appearance CLEAR Urine pH 5.5 (5.0-8.0) Ur Specific Jermyn 1.020 (1.001-1.035) Urine Protein NEGATIVE (NEGATIVE) mg/dL Urine Glucose (UA) NEGATIVE (NEGATIVE) mg/dL Urine Ketones NEGATIVE (NEGATIVE) mg/dL Urine Occult Blood NEGATIVE (NEGATIVE) Urine Nitrite NEGATIVE (NEGATIVE) Urine Bilirubin NEGATIVE (NEGATIVE) Urine Urobilinogen 0.2 (<2.0) EU/dL Ur Leukocyte Esterase NEGATIVE (NEGATIVE) 07/01/20 07/01/20 Range/Units 05:33 06:20 WBC 6.78 (4.0-11.0) K/uL RBC 4.49 L (4.50-5.90) M/uL Hgb 13.8 (13.0-17.0) g/dL Hct 42.0 (38.0-50.0) % MCV 93.5 (80.0-98.0) fL MCH 30.7 (27.0-32.0) pg MCHC 32.9 (31.0-37.0) g/dL RDW Std Deviation 47.0 (28.0-62.0) fl RDW Coeff of Aishwarya 14 (11.0-15.0) % Plt Count 200 (150-400) K/uL MPV 10.20 (7.40-12.00) fL Neut % (Auto) 51.7 (48.0-80.0) % Lymph % (Auto) 37.9 (16.0-40.0) % [place] % (Auto) 8.0 (0.0-15.0) % Eos % (Auto) 2.1 (0.0-7.0) % Baso % (Auto) 0.3 (0.0-1.5) % Neut # (Auto) 3.5 (1.4-5.7) K/uL Lymph # (Auto) 2.6 H (0.6-2.4) K/uL [place] # (Auto) 0.5 (0.0-0.8) K/uL Eos # (Auto) 0.1 (0.0-0.7) K/uL Baso # (Auto) 0.0 (0.0-0.1) K/uL Nucleated RBC % 0.0 /100WBC Nucleated RBCs # 0 K/uL INR Sodium 142 (136-148) mmol/L Potassium 4.5 (3.5-5.1) mmol/L Chloride 107 (98-107) mmol/L Carbon Dioxide 24.9 (21.0-32.0) mmol/L BUN 13 (7.0-18.0) mg/dL Creatinine 1.1 (0.8-1.3) mg/dL Est Cr Clr Drug Dosing 78.88 mL/min Estimated GFR (MDRD) > 60.0 ml/min Glucose 114 H (74-106) mg/dL Calcium 9.2 (8.5-10.1) mg/dL Magnesium (1.8-2.4) mg/dL Total Bilirubin 0.4 (0.2-1.0) mg/dL AST 16 (15-37) IU/L ALT 25 (14-63) IU/L Alkaline Phosphatase 84 (46-116) U/L Total Protein 7.1 (6.4-8.2) g/dL Albumin 3.1 L (3.4-5.0) g/dL Globulin 4.0 (2.6-4.0) g/dL Albumin/Globulin Ratio 0.8 L (0.9-1.6) TSH 3rd Generation (0.36-3.74) uIU/mL Urine Color Urine Appearance Urine pH (5.0-8.0) Ur Specific Jermyn (1.001-1.035) Urine Protein (NEGATIVE) mg/dL Urine Glucose (UA) (NEGATIVE) mg/dL Urine Ketones (NEGATIVE) mg/dL Urine Occult Blood (NEGATIVE) Urine Nitrite (NEGATIVE) Urine Bilirubin (NEGATIVE) Urine Urobilinogen (<2.0) EU/dL Ur Leukocyte Esterase (NEGATIVE) Med Orders - Current: Current Medications Lactated Ringer's (Ringers, Lactated) 1,000 mls @ 125 mls/hr IV Q8H [facility] Indocyanine Green (Indocyanine Green) 0 mg .XX ONETIME ONE Stop: 07/01/20 10:01 Ivermectin (Ivermectin) 18 mg PO ONETIME ONE Stop: 07/01/20 16:01 Lisinopril (Prinivil) 20 mg PO DAILY [facility] Last Admin: 06/30/20 09:59 Dose: 20 mg Documented by: Morphine Sulfate (Morphine) 2 mg IVPUSH Q4H PRN PRN Reason: Pain Ondansetron HCl (Zofran) 4 mg IVPUSH Q4H PRN PRN Reason: Nausea Discontinued Medications Fentanyl (Sublimaze) Confirm Administered Dose 250 mcg .ROUTE .STK-MED ONE Stop: 07/01/20 08:31 Glycopyrrolate (Robinul) Confirm Administered Dose 0.8 mg .ROUTE .STK-MED ONE Stop: 07/01/20 08:32 Hydralazine HCl (Apresoline) 20 mg IVPUSH ONETIME ONE Stop: 06/30/20 03:21 Last Admin: 06/30/20 03:29 Dose: 20 mg Documented by: Hydromorphone HCl (Dilaudid) 1 mg IVPUSH ONETIME ONE Stop: 06/30/20 02:35 Last Admin: 06/30/20 02:38 Dose: 1 mg Documented by: Hydromorphone HCl (Dilaudid) 1 mg IVPUSH ONETIME ONE Stop: 06/30/20 02:38 Last Admin: 06/30/20 02:39 Dose: Not Given Documented by: Hydromorphone HCl (Dilaudid) Confirm Administered Dose 1 mg .ROUTE .STK-MED ONE Stop: 06/30/20 02:36 Last Admin: 06/30/20 02:38 Dose: Not Given Documented by: Dextrose/Sodium Chloride (Dextrose 5%-Normal Saline) 1,000 mls @ 999 mls/hr IV ASDIRECTED [facility] Dextrose/Sodium Chloride (Dextrose 5%-Normal Saline) 1,000 mls @ 999 mls/hr IV NOW STA Stop: 06/30/20 02:28 Last Admin: 06/30/20 01:29 Dose: 999 mls/hr Documented by: Piperacillin Sod/Tazobactam (Sod 4.5 gm/ Sodium Chloride) 100 mls @ 100 mls/hr IV ONETIME ONE Stop: 06/30/20 04:13 Last Admin: 06/30/20 03:32 Dose: 100 mls/hr Documented by: Sodium Chloride (Normal Saline) 1,000 mls @ 125 mls/hr IV ASDIRECTED [facility] Last Admin: 06/30/20 03:31 Dose: 125 mls/hr Documented by: Lactated Ringer's (Ringers, Lactated) 1,000 mls [facility] Last Admin: 06/30/20 08:48 Dose: 125 mls/hr Documented by: Piperacillin Sod/Tazobactam (Sod 3.375 gm/ Sodium Chloride) 50 mls @ 100 mls/hr IV Q6H [facility] Last Admin: 06/30/20 11:29 Dose: 100 mls/hr Documented by: Ivermectin (Ivermectin) 18 mg PO 06/30/20@1600 [facility] Stop: 06/30/20 16:01 Last Admin: 06/30/20 16:15 Dose: 18 mg Documented by: Ketorolac Tromethamine (Toradol) Confirm Administered Dose 30 mg .ROUTE .STK-MED ONE Stop: 07/01/20 08:32 Lidocaine (Xylocaine-Mpf 2%) Confirm Administered Dose 5 ml .ROUTE .STK-MED ONE Stop: 07/01/20 08:32 Midazolam HCl (Versed 1 Mg/Ml) Confirm Administered Dose 2 mg .ROUTE .STK-MED ONE Stop: 07/01/20 08:31 Morphine Sulfate (Morphine) 4 mg IVPUSH ONETIME ONE Stop: 06/30/20 01:18 Last Admin: 06/30/20 01:27 Dose: 4 mg Documented by: Ondansetron HCl (Zofran) 4 mg IVPUSH ONETIME ONE Stop: 06/30/20 01:18 Last Admin: 06/30/20 01:27 Dose: 4 mg Documented by: Ondansetron HCl (Zofran) Confirm Administered Dose 4 mg .ROUTE .STK-MED ONE Stop: 07/01/20 08:32 Permethrin 60 Gm (Tube) 0 each TOP ASDIRECTED ONE Stop: 06/30/20 14:01 Last Admin: 06/30/20 15:21 Dose: Not Given Documented by: Propofol (Diprivan 20 Ml) Confirm Administered Dose 200 mg .ROUTE .STK-MED ONE Stop: 07/01/20 08:31 Rocuronium [place] (Rocuronium [place]) Confirm Administered Dose 50 mg .ROUTE .STK-MED ONE Stop: 07/01/20 08:32 - Exam General: Alert, Oriented, Cooperative, No Acute Distress Lungs: Clear to Auscultation, Normal Respiratory Effort Cardiovascular: Regular Rate, Regular Rhythm GI/Abdominal Exam: Normal Bowel Sounds, Soft, Non-Tender, No Distention Extremities: Normal Inspection, No Pedal Edema Skin: Other (Multiple scattered 1 mm cipriano-like lesions on b/l forearms, b/l anterior legs and back.) - Patient Data Lab Results Last 24 hrs: Laboratory Results - last 24 hr 06/30/20 06/30/20 06/30/20 Range/Units 01:00 14:57 17:20 WBC (4.0-11.0) K/uL RBC (4.50-5.90) M/uL Hgb (13.0-17.0) g/dL Hct (38.0-50.0) % MCV (80.0-98.0) fL MCH (27.0-32.0) pg MCHC (31.0-37.0) g/dL RDW Std Deviation (28.0-62.0) fl RDW Coeff of Aishwarya (11.0-15.0) % Plt Count (150-400) K/uL MPV (7.40-12.00) fL Neut % (Auto) (48.0-80.0) % Lymph % (Auto) (16.0-40.0) % [place] % (Auto) (0.0-15.0) % Eos % (Auto) (0.0-7.0) % Baso % (Auto) (0.0-1.5) % Neut # (Auto) (1.4-5.7) K/uL Lymph # (Auto) (0.6-2.4) K/uL [place] # (Auto) (0.0-0.8) K/uL Eos # (Auto) (0.0-0.7) K/uL Baso # (Auto) (0.0-0.1) K/uL Nucleated RBC % /100WBC Nucleated RBCs # K/uL INR 1.00 Sodium (136-148) mmol/L Potassium (3.5-5.1) mmol/L Chloride (98-107) mmol/L Carbon Dioxide (21.0-32.0) mmol/L BUN (7.0-18.0) mg/dL Creatinine (0.8-1.3) mg/dL Est Cr Clr Drug Dosing mL/min Estimated GFR (MDRD) ml/min Glucose (74-106) mg/dL Calcium (8.5-10.1) mg/dL Magnesium 2.3 (1.8-2.4) mg/dL Total Bilirubin (0.2-1.0) mg/dL AST (15-37) IU/L ALT (14-63) IU/L Alkaline Phosphatase (46-116) U/L Total Protein (6.4-8.2) g/dL Albumin (3.4-5.0) g/dL Globulin (2.6-4.0) g/dL Albumin/Globulin Ratio (0.9-1.6) TSH 3rd Generation 1.91 (0.36-3.74) uIU/mL Urine Color YELLOW Urine Appearance CLEAR Urine pH 5.5 (5.0-8.0) Ur Specific Jermyn 1.020 (1.001-1.035) Urine Protein NEGATIVE (NEGATIVE) mg/dL Urine Glucose (UA) NEGATIVE (NEGATIVE) mg/dL Urine Ketones NEGATIVE (NEGATIVE) mg/dL Urine Occult Blood NEGATIVE (NEGATIVE) Urine Nitrite NEGATIVE (NEGATIVE) Urine Bilirubin NEGATIVE (NEGATIVE) Urine Urobilinogen 0.2 (<2.0) EU/dL Ur Leukocyte Esterase NEGATIVE (NEGATIVE) 07/01/20 07/01/20 Range/Units 05:33 06:20 WBC 6.78 (4.0-11.0) K/uL RBC 4.49 L (4.50-5.90) M/uL Hgb 13.8 (13.0-17.0) g/dL Hct 42.0 (38.0-50.0) % MCV 93.5 (80.0-98.0) fL MCH 30.7 (27.0-32.0) pg MCHC 32.9 (31.0-37.0) g/dL RDW Std Deviation 47.0 (28.0-62.0) fl RDW Coeff of Aishwarya 14 (11.0-15.0) % Plt Count 200 (150-400) K/uL MPV 10.20 (7.40-12.00) fL Neut % (Auto) 51.7 (48.0-80.0) % Lymph % (Auto) 37.9 (16.0-40.0) % [place] % (Auto) 8.0 (0.0-15.0) % Eos % (Auto) 2.1 (0.0-7.0) % Baso % (Auto) 0.3 (0.0-1.5) % Neut # (Auto) 3.5 (1.4-5.7) K/uL Lymph # (Auto) 2.6 H (0.6-2.4) K/uL [place] # (Auto) 0.5 (0.0-0.8) K/uL Eos # (Auto) 0.1 (0.0-0.7) K/uL Baso # (Auto) 0.0 (0.0-0.1) K/uL Nucleated RBC % 0.0 /100WBC Nucleated RBCs # 0 K/uL INR Sodium 142 (136-148) mmol/L Potassium 4.5 (3.5-5.1) mmol/L Chloride 107 (98-107) mmol/L Carbon Dioxide 24.9 (21.0-32.0) mmol/L BUN 13 (7.0-18.0) mg/dL Creatinine 1.1 (0.8-1.3) mg/dL Est Cr Clr Drug Dosing 78.88 mL/min Estimated GFR (MDRD) > 60.0 ml/min Glucose 114 H (74-106) mg/dL Calcium 9.2 (8.5-10.1) mg/dL Magnesium (1.8-2.4) mg/dL Total Bilirubin 0.4 (0.2-1.0) mg/dL AST 16 (15-37) IU/L ALT 25 (14-63) IU/L Alkaline Phosphatase 84 (46-116) U/L Total Protein 7.1 (6.4-8.2) g/dL Albumin 3.1 L (3.4-5.0) g/dL Globulin 4.0 (2.6-4.0) g/dL Albumin/Globulin Ratio 0.8 L (0.9-1.6) TSH 3rd Generation (0.36-3.74) uIU/mL Urine Color Urine Appearance Urine pH (5.0-8.0) Ur Specific Jermyn (1.001-1.035) Urine Protein (NEGATIVE) mg/dL Urine Glucose (UA) (NEGATIVE) mg/dL Urine Ketones (NEGATIVE) mg/dL Urine Occult Blood (NEGATIVE) Urine Nitrite (NEGATIVE) Urine Bilirubin (NEGATIVE) Urine Urobilinogen (<2.0) EU/dL Ur Leukocyte Esterase (NEGATIVE) Result Diagrams: 07/01/20 06:20 07/01/20 05:33 Sepsis Event Note - Evaluation Sepsis Screening Result: No Definite Risk - Focused Exam Vital Signs: Vital Signs Temp Pulse Resp BP Pulse Ox 07/01/20 08:00 36.8 C 69 12 146/88 H 96 07/01/20 04:00 37.2 C 71 18 147/87 H 94 L 07/01/20 00:27 36.9 C 75 18 156/86 H 94 L - Problem List & Annotations (1) Biliary colic SNOMED Code(s): 14229688 Code(s): K80.50 - CALCULUS OF BILE DUCT W/O CHOLANGITIS OR CHOLECYST W/O OBST Status: Acute Current Visit: No (2) Scabies SNOMED Code(s): 919323668, 838777815 Code(s): B86 - SCABIES Status: Acute Current Visit: Yes (3) Abdominal pain SNOMED Code(s): 25007003 Code(s): R10.9 - UNSPECIFIED ABDOMINAL PAIN Status: Acute Current Visit: No Qualifiers: Abdominal location: epigastric Qualified Code(s): R10.13 - Epigastric pain (4) Hypertension SNOMED Code(s): 94384904 Code(s): I10 - ESSENTIAL (PRIMARY) HYPERTENSION Status: Acute Current Visit: No (5) CVA (cerebral vascular accident) SNOMED Code(s): 308935580 Code(s): I63.9 - CEREBRAL INFARCTION, UNSPECIFIED Status: Acute Current Visit: Yes (6) Tobacco abuse SNOMED Code(s): 601472498 Code(s): Z72.0 - TOBACCO USE Status: Acute Current Visit: Yes - Problem List Review Problem List Initiated/Reviewed/Updated: Yes - My Orders Last 24 Hours: My Active Orders 06/30/20 08:07 Antiembolic Devices [RC] PER UNIT ROUTINE Notify Provider Consults [RC] ASDIRECTED Oxygen Therapy [RC] PRN Up ad Deandra [RC] ASDIRECTED VTE/DVT Education [RC] PER UNIT ROUTINE Vital Signs [RC] Q4H Consult to Physician [CONS] Urgent Ondansetron [Zofran] 4 mg IVPUSH Q4H PRN Sequential Compression Device [OM.PC] Per Unit Routine Resuscitation Status Routine 06/30/20 09:02 Morphine 2 mg IVPUSH Q4H PRN 06/30/20 09:30 lisinopriL [Prinivil] 20 mg PO DAILY 06/30/20 11:07 Consult to Physician [CONS] Urgent 06/30/20 11:08 Notify Provider Consults [RC] ASDIRECTED 06/30/20 13:17 EKG 12 Lead [EKG Documentation Completion] [RC] URGENT 06/30/20 Dinner NPO After Midnight [Nothing per Oral After Midnight Diet] [DIET] 07/01/20 08:00 Lactated Ringers [Ringers, Lactated] 1,000 ml IV Q8H 07/01/20 16:00 Ivermectin 18 mg PO ONETIME ONE - Plan Plan:: Assessment and Plan: 1. Symptomatic cholelithiasis: - Per general surgery, patient will be going to OR today. He has been NPO since midnight. Currently on IV LR's @ 125 cc/hr. 2. Hypertension: - Continue lisinopril 20 mg qd. 3. Scabies: - Patient started on PO ivermectin. 4. Past medical history of CVA and tobacco abuse. 5. DVT prophylaxis: - SCD's for now. <Russ Stephen - Last Filed: 07/02/20 12:01> - General Info Subjective Update: I have seen and evaluated the patient and agree with the residents note unless specified in my note - Patient Data Vitals - Most Recent: Last Vital Signs Temp 36.8 C 07/02/20 11:36 Pulse 65 07/02/20 11:36 Resp 18 07/02/20 11:36 BP 151/80 H 07/02/20 11:36 Pulse Ox 92 L 07/02/20 11:36 I&O - Last 24 Hours: Intake & Output 07/01/20 07/02/20 07/02/20 22:59 06:59 14:59 Intake Total 1095 900 Output Total 600 1050 Balance 495 -150 Lab Results Last 24 Hours: Laboratory Results - last 24 hr 07/02/20 07/02/20 Range/Units 05:25 05:25 WBC 8.06 (4.0-11.0) K/uL RBC 3.91 L (4.50-5.90) M/uL Hgb 12.6 L (13.0-17.0) g/dL Hct 36.7 L (38.0-50.0) % MCV 93.9 (80.0-98.0) fL MCH 32.2 H (27.0-32.0) pg MCHC 34.3 (31.0-37.0) g/dL RDW Std Deviation 47.7 (28.0-62.0) fl RDW Coeff of Aishwarya 14 (11.0-15.0) % Plt Count 182 (150-400) K/uL MPV 10.20 (7.40-12.00) fL Neut % (Auto) 58.9 (48.0-80.0) % Lymph % (Auto) 30.4 (16.0-40.0) % [place] % (Auto) 9.2 (0.0-15.0) % Eos % (Auto) 1.4 (0.0-7.0) % Baso % (Auto) 0.1 (0.0-1.5) % Neut # (Auto) 4.8 (1.4-5.7) K/uL Lymph # (Auto) 2.5 H (0.6-2.4) K/uL [place] # (Auto) 0.7 (0.0-0.8) K/uL Eos # (Auto) 0.1 (0.0-0.7) K/uL Baso # (Auto) 0.0 (0.0-0.1) K/uL Nucleated RBC % 0.0 /100WBC Nucleated RBCs # 0 K/uL Sodium 139 (136-148) mmol/L Potassium 4.3 (3.5-5.1) mmol/L Chloride 106 (98-107) mmol/L Carbon Dioxide 25.7 (21.0-32.0) mmol/L BUN 14 (7.0-18.0) mg/dL Creatinine 1.2 (0.8-1.3) mg/dL Est Cr Clr Drug Dosing 72.31 mL/min Estimated GFR (MDRD) > 60.0 ml/min Glucose 124 H (74-106) mg/dL Calcium 8.6 (8.5-10.1) mg/dL Total Bilirubin 0.6 (0.2-1.0) mg/dL AST 26 (15-37) IU/L ALT 38 (14-63) IU/L Alkaline Phosphatase 79 (46-116) U/L Total Protein 6.5 (6.4-8.2) g/dL Albumin 2.9 L (3.4-5.0) g/dL Globulin 3.6 (2.6-4.0) g/dL Albumin/Globulin Ratio 0.8 L (0.9-1.6) Med Orders - Current: Current Medications Hydrocodone Bitart/Acetaminophen (Patterson 325-5 Mg) 1 tab PO Q4H PRN PRN Reason: Pain Last Admin: 07/02/20 04:45 Dose: 1 tab Documented by: Docusate Sodium (Colace) 100 mg PO ONETIME ONE Stop: 07/02/20 11:51 Lisinopril (Prinivil) 20 mg PO DAILY [facility] Last Admin: 07/02/20 08:42 Dose: 20 mg Documented by: Morphine Sulfate (Morphine) 2 mg IVPUSH Q4H PRN PRN Reason: Pain Ondansetron HCl (Zofran) 4 mg IVPUSH Q4H PRN PRN Reason: Nausea Scopolamine (Transderm-Scop) 1.5 mg TRDERM Q72H PRN PRN Reason: Nausea Discontinued Medications Cefoxitin Sodium (Mefoxin) Confirm Administered Dose 1 gm .ROUTE .STK-MED ONE Stop: 07/01/20 12:29 Fentanyl (Sublimaze) Confirm Administered Dose 250 mcg .ROUTE .STK-MED ONE Stop: 07/01/20 08:31 Fentanyl (Sublimaze) Confirm Administered Dose 250 mcg .ROUTE .STK-MED ONE Stop: 07/01/20 12:58 Fentanyl (Sublimaze) Confirm Administered Dose 100 mcg .ROUTE .STK-MED ONE Stop: 07/01/20 13:59 Glycopyrrolate (Robinul) Confirm Administered Dose 0.8 mg .ROUTE .STK-MED ONE Stop: 07/01/20 08:32 Hydralazine HCl (Apresoline) 20 mg IVPUSH ONETIME ONE Stop: 06/30/20 03:21 Last Admin: 06/30/20 03:29 Dose: 20 mg Documented by: Hydralazine HCl (Apresoline) Confirm Administered Dose 20 mg .ROUTE .STK-MED ONE Stop: 07/01/20 13:02 Hydromorphone HCl (Dilaudid) 1 mg IVPUSH ONETIME ONE Stop: 06/30/20 02:35 Last Admin: 06/30/20 02:38 Dose: 1 mg Documented by: Hydromorphone HCl (Dilaudid) 1 mg IVPUSH ONETIME ONE Stop: 06/30/20 02:38 Last Admin: 06/30/20 02:39 Dose: Not Given Documented by: Hydromorphone HCl (Dilaudid) Confirm Administered Dose 1 mg .ROUTE .STK-MED ONE Stop: 06/30/20 02:36 Last Admin: 06/30/20 02:38 Dose: Not Given Documented by: Dextrose/Sodium Chloride (Dextrose 5%-Normal Saline) 1,000 mls @ 999 mls/hr IV ASDIRECTED [facility] Dextrose/Sodium Chloride (Dextrose 5%-Normal Saline) 1,000 mls @ 999 mls/hr IV NOW STA Stop: 06/30/20 02:28 Last Admin: 06/30/20 01:29 Dose: 999 mls/hr Documented by: Piperacillin Sod/Tazobactam (Sod 4.5 gm/ Sodium Chloride) 100 mls @ 100 mls/hr IV ONETIME ONE Stop: 06/30/20 04:13 Last Admin: 06/30/20 03:32 Dose: 100 mls/hr Documented by: Sodium Chloride (Normal Saline) 1,000 mls @ 125 mls/hr IV ASDIRECTED [facility] Last Admin: 06/30/20 03:31 Dose: 125 mls/hr Documented by: Lactated Ringer's (Ringers, Lactated) 1,000 mls @ 125 mls/hr IV ASDIRECTED [facility] Last Admin: 06/30/20 08:48 Dose: 125 mls/hr Documented by: Piperacillin Sod/Tazobactam (Sod 3.375 gm/ Sodium Chloride) 50 mls @ 100 mls/hr IV Q6H [facility] Last Admin: 06/30/20 11:29 Dose: 100 mls/hr Documented by: Lactated Ringer's (Ringers, Lactated) 1,000 mls @ 125 mls/hr IV Q8H [facility] Last Admin: 07/01/20 16:21 Dose: Not Given Documented by: Bupivacaine HCl/Epinephrine Bitart (Sensorc Mpf 0.25%-Epi 1:[id number]) Confirm Administered Dose 30 mls @ as directed .ROUTE .STK-MED ONE Stop: 07/01/20 11:58 Cefoxitin Sodium 2 gm/ Premix 50 mls @ 100 mls/hr IV Q6H [facility] Stop: 07/02/20 06:59 Last Admin: 07/02/20 06:18 Dose: 100 mls/hr Documented by: Indocyanine Green (Indocyanine Green) 2.5 mg IJ ONETIME ONE Stop: 07/01/20 10:01 Last Admin: 07/01/20 13:05 Dose: Not Given Documented by: Indocyanine Green (Indocyanine Green) Confirm Administered Dose 25 mg .ROUTE .STK-MED ONE Stop: 07/01/20 11:40 Ivermectin (Ivermectin) 18 mg PO 06/30/20@1600 [facility] Stop: 06/30/20 16:01 Last Admin: 06/30/20 16:15 Dose: 18 mg Documented by: Ivermectin (Ivermectin) 18 mg PO ONETIME ONE Stop: 07/01/20 16:01 Ivermectin (Ivermectin) 18 mg PO ONETIME ONE Stop: 07/01/20 09:16 Last Admin: 07/01/20 09:55 Dose: 18 mg Documented by: Ketorolac Tromethamine (Toradol) Confirm Administered Dose 30 mg .ROUTE .STK-MED ONE Stop: 07/01/20 08:32 Labetalol HCl (Normodyne) Confirm Administered Dose 100 mg .ROUTE .STK-MED ONE Stop: 07/01/20 12:55 Lidocaine (Xylocaine-Mpf 2%) Confirm Administered Dose 5 ml .ROUTE .STK-MED ONE Stop: 07/01/20 08:32 Midazolam HCl (Versed 1 Mg/Ml) Confirm Administered Dose 2 mg .ROUTE .STK-MED ONE Stop: 07/01/20 08:31 Morphine Sulfate (Morphine) 4 mg IVPUSH ONETIME ONE Stop: 06/30/20 01:18 Last Admin: 06/30/20 01:27 Dose: 4 mg Documented by: Octyl Cyanoacrylate (Dermabond Advance) Confirm Administered Dose 1 applic .ROUTE .STK-MED ONE Stop: 07/01/20 11:58 Ondansetron HCl (Zofran) 4 mg IVPUSH ONETIME ONE Stop: 06/30/20 01:18 Last Admin: 06/30/20 01:27 Dose: 4 mg Documented by: Ondansetron HCl (Zofran) Confirm Administered Dose 4 mg .ROUTE .STK-MED ONE Stop: 07/01/20 08:32 Permethrin 60 Gm (Tube) 0 each TOP ASDIRECTED ONE Stop: 06/30/20 14:01 Last Admin: 06/30/20 15:21 Dose: Not Given Documented by: Propofol (Diprivan 20 Ml) Confirm Administered Dose 200 mg .ROUTE .STK-MED ONE Stop: 07/01/20 08:31 Rocuronium [place] (Rocuronium [place]) Confirm Administered Dose 50 mg .ROUTE .STK-MED ONE Stop: 07/01/20 08:32 - Patient Data Lab Results Last 24 hrs: Laboratory Results - last 24 hr 07/02/20 07/02/20 Range/Units 05:25 05:25 WBC 8.06 (4.0-11.0) K/uL RBC 3.91 L (4.50-5.90) M/uL Hgb 12.6 L (13.0-17.0) g/dL Hct 36.7 L (38.0-50.0) % MCV 93.9 (80.0-98.0) fL MCH 32.2 H (27.0-32.0) pg MCHC 34.3 (31.0-37.0) g/dL RDW Std Deviation 47.7 (28.0-62.0) fl RDW Coeff of Aishwarya 14 (11.0-15.0) % Plt Count 182 (150-400) K/uL MPV 10.20 (7.40-12.00) fL Neut % (Auto) 58.9 (48.0-80.0) % Lymph % (Auto) 30.4 (16.0-40.0) % [place] % (Auto) 9.2 (0.0-15.0) % Eos % (Auto) 1.4 (0.0-7.0) % Baso % (Auto) 0.1 (0.0-1.5) % Neut # (Auto) 4.8 (1.4-5.7) K/uL Lymph # (Auto) 2.5 H (0.6-2.4) K/uL [place] # (Auto) 0.7 (0.0-0.8) K/uL Eos # (Auto) 0.1 (0.0-0.7) K/uL Baso # (Auto) 0.0 (0.0-0.1) K/uL Nucleated RBC % 0.0 /100WBC Nucleated RBCs # 0 K/uL Sodium 139 (136-148) mmol/L Potassium 4.3 (3.5-5.1) mmol/L Chloride 106 (98-107) mmol/L Carbon Dioxide 25.7 (21.0-32.0) mmol/L BUN 14 (7.0-18.0) mg/dL Creatinine 1.2 (0.8-1.3) mg/dL Est Cr Clr Drug Dosing 72.31 mL/min Estimated GFR (MDRD) > 60.0 ml/min Glucose 124 H (74-106) mg/dL Calcium 8.6 (8.5-10.1) mg/dL Total Bilirubin 0.6 (0.2-1.0) mg/dL AST 26 (15-37) IU/L ALT 38 (14-63) IU/L Alkaline Phosphatase 79 (46-116) U/L Total Protein 6.5 (6.4-8.2) g/dL Albumin 2.9 L (3.4-5.0) g/dL Globulin 3.6 (2.6-4.0) g/dL Albumin/Globulin Ratio 0.8 L (0.9-1.6) Result Diagrams: 07/02/20 05:25 07/02/20 05:25 Sepsis Event Note - Focused Exam Vital Signs: Vital Signs Temp Pulse Resp BP BP Pulse Ox 07/02/20 11:36 36.8 C 65 18 151/80 H 92 L 07/02/20 08:42 149/76 H 07/02/20 07:45 37.4 C 76 20 164/79 H 93 L 07/02/20 04:43 37.2 C 84 17 144/72 H 95
[2020-07-01] MEDS ORDERED: Ivermectin 3 MG Tab PO ONE ×2 (09:15→16:00)
[2020-07-01] MEDS: Lisinopril 10 MG Tab PO SCH (09:54)
[2020-07-01] MEDS: Lactated Ringers 1,000 ML IV SCH ×2 (09:57→16:21)
[2020-07-01] MEDS ORDERED: Indocyanine Green 25 MG SDV IJ ONE (10:00)
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
[2020-07-01] MEDS ORDERED: Scopolamine 1.5 MG Transdermal Patch TRDERM PRN (11:00)
--- NOTE | 2020-07-01 11:21 | PN ---
SUBJECTIVE: The patient is sitting comfortably in his bed. He is alert and oriented. He is in no acute distress. The patient says he feels good. He has no more abdominal pain. He feels ready for his procedure. His blood pressure has been better controlled by the medicine team. OBJECTIVE: Abdomen is soft, nontender, nondistended. LABS: The patient continues not to have an elevated white cell count at 6.78. LFTs are also not elevated. ASSESSMENT AND PLAN: This is a pleasant 65-year-old gentleman with symptomatic cholelithiasis. This has been postponed several times because of his blood pressure issues, now it is currently controlled. He has been evaluated by the medicine team and I talked to the hospitalist, who said he has been cleared and is ready for surgery today. The patient also feels ready. We will proceed with laparoscopic cholecystectomy later today. I did again go over the procedure with the patient and answered all of his questions. NAHID CABRAL /[id number] KENZIE
[2020-07-01] MEDS ORDERED: Indocyanine Green 25 MG SDV ONE (11:39)
[2020-07-01] MEDS ORDERED: Bupivacaine 25%/EPINEPHrine/PF 30 ML ONE (11:57)
[2020-07-01] MEDS ORDERED: Octyl 2-Cyanoacrylate 1 Tube ONE (11:57)
[2020-07-01] MEDS ORDERED: cefOXitin 1 GM Vial ONE (12:28)
[2020-07-01] MEDS ORDERED: Labetalol 100 MG/20 ML MDV ONE (12:54)
[2020-07-01] MEDS ORDERED: hydrALAZINE 20 MG/ML SDV ONE (13:01)
[2020-07-01] MEDS ORDERED: fentaNYL 100 MCG/2 ML SDV ONE (13:58)
--- NOTE | 2020-07-01 14:34 | PCM.OPNOTE ---
- General Post-Op/Procedure Note Date of Surgery/Procedure: 07/01/20 Operative Procedure(s): Laparoscopic cholecystectomy Findings: edematous gallbladder with adhesions. dictation number, [id number] Pre Op Diagnosis: Symptomatic cholelithiasis Post-Op Diagnosis: Symptomatic cholelithiasis. chronic cholecystitis Primary Surgeon: Timothy Chavira Pathology: gallbladder EBL in mLs: 5 Complications: None Condition: Stable Free Text/Narrative:: Intake & Output 06/30/20 07/01/20 07/01/20 22:59 06:59 14:59 Intake Total 300 Output Total 700 100 Balance -400 -100
--- NOTE | 2020-07-01 14:37 | PCM.POSTAN ---
POST ANESTHESIA ASSESSMENT - MENTAL STATUS Mental Status: Alert, Oriented - VITAL SIGNS Vital Signs: Last Vital Signs Temp 36.6 C 07/01/20 14:05 Pulse 74 07/01/20 14:31 Resp 15 07/01/20 14:31 BP 128/76 07/01/20 14:31 Pulse Ox 95 07/01/20 14:31 - RESPIRATORY Respiratory Status: Respiratory Rate WNL, Airway Patent, O2 Saturation Stable - CARDIOVASCULAR CV Status: Pulse Rate WNL, Blood Pressure Stable - GASTROINTESTINAL GI Status: No Symptoms - PAIN Pain Score: 0 - POST OP HYDRATION Hydration Status: Adequate & Stable - OBSERVATIONS Free Text/Narrative:: No anesthesia problems
[2020-07-01] MEDS: Acetaminophen/HYDROcodone 325-5 MG Tab PO PRN ×2 (15:41→23:51)
--- NOTE | 2020-07-01 15:57 | OR ---
SURGEON: ALESSANDRA CASTREJON MD DATE OF PROCEDURE: 07/01/2020 PREOPERATIVE DIAGNOSIS: Symptomatic cholelithiasis. POSTOPERATIVE DIAGNOSES: Symptomatic cholelithiasis and chronic cholecystitis. PROCEDURE PERFORMED: Laparoscopic cholecystectomy. PRIMARY SURGEON: Alessandra Castrejon MD SALESPERSON HOSIERY: SELVIN Santacruz, second year nursing surgical services director. ESTIMATED BLOOD LOSS: 5. SPECIMEN: Gallbladder. COMPLICATIONS: None. REASON FOR PROCEDURE: The patient is a pleasant 65-year-old gentleman who has been in the hospital and ER multiple times with symptomatic cholelithiasis and cancelled several times in the past because of elevated blood pressure. He came in again with abdominal pain that dissipated, but was admitted for uncontrolled hypertension. Hypertension controlled by Medicine team as the team has cleared him for surgery. I did go over with the patient again risks, goals, alternatives of the procedure. Risks include, but not limited to, bleeding; infection; bile leak, injury to nearby structures, common bile duct and duodenum; need to convert to open; hernia formation; retained gallstone. The patient understands and wishes to proceed. OPERATION NARRATIVE: The patient was brought back to the OR. He was prepped and draped in usual sterile fashion. SCDs were placed. Antibiotics were given and anesthesia provided by the Anesthesia team. After time-out was performed, an infraumbilical incision was made, this made down to the fascia. The abdomen was entered in open Lucie technique. After Lucie trocar was placed, insufflation was began and pneumoperitoneum was established. Abdomen was then inspected. No injury was noted. Now, three more 5 mm trocars were placed; one in epigastric, one in midclavicular subcostal area, and one in the right lower abdomen. Omentum was fairly scarred to liver and gallbladder. I did take down some of these adhesions with the Harmonic scalpel. Once the fundus of the gallbladder was seen, it was grasped and elevated. The rest of the omentum was carefully taken down with blunt dissection and Harmonic. The infundibulum was then grasped. The patient did have quite a bit of adipose tissue and edema, but this was carefully dissected away, mainly with blunt dissection and some Harmonic scalpel. Also, we were able to expose the cystic duct and cystic artery. Did clear some of the back wall of the gallbladder, about one-fourth the way up. There was good critical view. We did do indocyanine green, which showed good critical view. I did inject an extra bolus and saw the cystic duct also light up. Cystic duct and cystic artery were then clipped and transected. Gallbladder was then taken off the liver bed with Harmonic scalpel. Again, it was slightly edematous and no other tubular structures were encountered. Taken off the liver bed. There was a small hole made in the gallbladder with some minimal bile leakage. This was suctioned and irrigated out. Once the gallbladder was removed, there was good hemostasis. The clips appeared to be in place and intact. Gallbladder was then placed in Endo Catch bag and removed. The abdomen was again inspected. There was good hemostasis. I did do some suction and irrigation including the small bile spillage. Now, the 5 mm trocars were removed under direct visualization. Pneumoperitoneum was released. Abdominal fascia was then closed with a figure- of-eight 0 Vicryl stitch. Local was again injected to all the port sites and they were all closed with 4-0 Monocryl and Dermabond. At the end of the case, sponge and needle counts were correct. The patient was transferred to recovery room in stable condition. NAHID CABRAL /[id number]
[2020-07-01] MEDS: cefOXitin 2 GM in Premix Bag 1 BAG IV SCH ×2 (18:01→23:38)
--- NOTE | 2020-07-01 21:08 | PCM48HPAN ---
Post Anesthesia Note - EVALUATION WITHIN 48HRS OF ANESTHETIC Vital Signs in Normal Range: Yes Patient Participated in Evaluation: Yes Respiratory Function Stable: Yes Airway Patent: Yes Cardiovascular Function Stable: Yes Hydration Status Stable: Yes Pain Control Satisfactory: Yes Nausea and Vomiting Control Satisfactory: Yes Mental Status Recovered: Yes Vital Signs: Last Vital Signs Temp 36.4 C 07/01/20 18:45 Pulse 73 07/01/20 18:45 Resp 16 07/01/20 18:45 BP 118/78 07/01/20 18:45 Pulse Ox 96 07/01/20 18:45
[2020-07-02] MEDS: Acetaminophen/HYDROcodone 325-5 MG Tab PO PRN (04:45)
[2020-07-02 05:55] LABS: BLOOD UREA NITROGEN,BUN 14 mg/dL (7.0-18.0); CARBON DIOXIDE,CO2 25.7 mmol/L (21.0-32.0); CHLORIDE,CL 106 mmol/L (98-107); GLUCOSE RANDOM 124 mg/dL (74-106); POTASSIUM,K 4.3 mmol/L (3.5-5.1); SODIUM,NA 139 mmol/L (136-148)
[2020-07-02] MEDS: cefOXitin 2 GM in Premix Bag 1 BAG IV SCH (06:18)
--- NOTE | 2020-07-02 06:58 | PCM.PN ---
<CaitTimothy C - Last Filed: 07/02/20 11:30> - Patient Data Vitals - Most Recent: Last Vital Signs Temp 99.4 F 07/02/20 07:45 Pulse 76 07/02/20 07:45 Resp 20 07/02/20 07:45 BP 149/76 H 07/02/20 08:42 Pulse Ox 93 L 07/02/20 07:45 I&O - Last 24 Hours: Intake & Output 07/01/20 07/02/20 07/02/20 22:59 06:59 14:59 Intake Total 1095 900 Output Total 600 1050 Balance 495 -150 Lab Results Last 24 Hours: Laboratory Results - last 24 hr 07/02/20 07/02/20 Range/Units 05:25 05:25 WBC 8.06 (4.0-11.0) K/uL RBC 3.91 L (4.50-5.90) M/uL Hgb 12.6 L (13.0-17.0) g/dL Hct 36.7 L (38.0-50.0) % MCV 93.9 (80.0-98.0) fL MCH 32.2 H (27.0-32.0) pg MCHC 34.3 (31.0-37.0) g/dL RDW Std Deviation 47.7 (28.0-62.0) fl RDW Coeff of Aishwarya 14 (11.0-15.0) % Plt Count 182 (150-400) K/uL MPV 10.20 (7.40-12.00) fL Neut % (Auto) 58.9 (48.0-80.0) % Lymph % (Auto) 30.4 (16.0-40.0) % [place] % (Auto) 9.2 (0.0-15.0) % Eos % (Auto) 1.4 (0.0-7.0) % Baso % (Auto) 0.1 (0.0-1.5) % Neut # (Auto) 4.8 (1.4-5.7) K/uL Lymph # (Auto) 2.5 H (0.6-2.4) K/uL [place] # (Auto) 0.7 (0.0-0.8) K/uL Eos # (Auto) 0.1 (0.0-0.7) K/uL Baso # (Auto) 0.0 (0.0-0.1) K/uL Nucleated RBC % 0.0 /100WBC Nucleated RBCs # 0 K/uL Sodium 139 (136-148) mmol/L Potassium 4.3 (3.5-5.1) mmol/L Chloride 106 (98-107) mmol/L Carbon Dioxide 25.7 (21.0-32.0) mmol/L BUN 14 (7.0-18.0) mg/dL Creatinine 1.2 (0.8-1.3) mg/dL Est Cr Clr Drug Dosing 72.31 mL/min Estimated GFR (MDRD) > 60.0 ml/min Glucose 124 H (74-106) mg/dL Calcium 8.6 (8.5-10.1) mg/dL Total Bilirubin 0.6 (0.2-1.0) mg/dL AST 26 (15-37) IU/L ALT 38 (14-63) IU/L Alkaline Phosphatase 79 (46-116) U/L Total Protein 6.5 (6.4-8.2) g/dL Albumin 2.9 L (3.4-5.0) g/dL Globulin 3.6 (2.6-4.0) g/dL Albumin/Globulin Ratio 0.8 L (0.9-1.6) Med Orders - Current: Current Medications Hydrocodone Bitart/Acetaminophen ([place] 325-5 Mg) 1 tab PO Q4H PRN PRN Reason: Pain Last Admin: 07/02/20 04:45 Dose: 1 tab Documented by: Lisinopril (Prinivil) 20 mg PO DAILY [facility] Last Admin: 07/02/20 08:42 Dose: 20 mg Documented by: Morphine Sulfate (Morphine) 2 mg IVPUSH Q4H PRN PRN Reason: Pain Ondansetron HCl (Zofran) 4 mg IVPUSH Q4H PRN PRN Reason: Nausea Scopolamine (Transderm-Scop) 1.5 mg TRDERM Q72H PRN PRN Reason: Nausea Discontinued Medications Cefoxitin Sodium (Mefoxin) Confirm Administered Dose 1 gm .ROUTE .STK-MED ONE Stop: 07/01/20 12:29 Fentanyl (Sublimaze) Confirm Administered Dose 250 mcg .ROUTE .STK-MED ONE Stop: 07/01/20 08:31 Fentanyl (Sublimaze) Confirm Administered Dose 250 mcg .ROUTE .STK-MED ONE Stop: 07/01/20 12:58 Fentanyl (Sublimaze) Confirm Administered Dose 100 mcg .ROUTE .STK-MED ONE Stop: 07/01/20 13:59 Glycopyrrolate (Robinul) Confirm Administered Dose 0.8 mg .ROUTE .STK-MED ONE Stop: 07/01/20 08:32 Hydralazine HCl (Apresoline) 20 mg IVPUSH ONETIME ONE Stop: 06/30/20 03:21 Last Admin: 06/30/20 03:29 Dose: 20 mg Documented by: Hydralazine HCl (Apresoline) Confirm Administered Dose 20 mg .ROUTE .STK-MED ONE Stop: 07/01/20 13:02 Hydromorphone HCl (Dilaudid) 1 mg IVPUSH ONETIME ONE Stop: 06/30/20 02:35 Last Admin: 06/30/20 02:38 Dose: 1 mg Documented by: Hydromorphone HCl (Dilaudid) 1 mg IVPUSH ONETIME ONE Stop: 06/30/20 02:38 Last Admin: 06/30/20 02:39 Dose: Not Given Documented by: Hydromorphone HCl (Dilaudid) Confirm Administered Dose 1 mg .ROUTE .STK-MED ONE Stop: 06/30/20 02:36 Last Admin: 06/30/20 02:38 Dose: Not Given Documented by: Dextrose/Sodium Chloride (Dextrose 5%-Normal Saline) 1,000 mls @ 999 mls/hr IV ASDIRECTED [facility] Dextrose/Sodium Chloride (Dextrose 5%-Normal Saline) 1,000 mls @ 999 mls/hr IV NOW STA Stop: 06/30/20 02:28 Last Admin: 06/30/20 01:29 Dose: 999 mls/hr Documented by: Piperacillin Sod/Tazobactam (Sod 4.5 gm/ Sodium Chloride) 100 mls @ 100 mls/hr IV ONETIME ONE Stop: 06/30/20 04:13 Last Admin: 06/30/20 03:32 Dose: 100 mls/hr Documented by: Sodium Chloride (Normal Saline) 1,000 mls @ 125 mls/hr IV ASDIRECTED [facility] Last Admin: 06/30/20 03:31 Dose: 125 mls/hr Documented by: Lactated Ringer's (Ringers, Lactated) 1,000 mls @ 125 mls/hr IV ASDIRECTED [facility] Last Admin: 06/30/20 08:48 Dose: 125 mls/hr Documented by: Piperacillin Sod/Tazobactam (Sod 3.375 gm/ Sodium Chloride) 50 mls @ 100 mls/hr IV Q6H [facility] Last Admin: 06/30/20 11:29 Dose: 100 mls/hr Documented by: Lactated Ringer's (Ringers, Lactated) 1,000 mls @ 125 mls/hr IV Q8H [facility] Last Admin: 07/01/20 16:21 Dose: Not Given Documented by: Bupivacaine HCl/Epinephrine Bitart (Sensorc Mpf 0.25%-Epi 1:[id number]) Confirm Administered Dose 30 mls @ as directed .ROUTE .STK-MED ONE Stop: 07/01/20 11:58 Cefoxitin Sodium 2 gm/ Premix 50 mls @ 100 mls/hr IV Q6H [facility] Stop: 07/02/20 06:59 Last Admin: 07/02/20 06:18 Dose: 100 mls/hr Documented by: Indocyanine Green (Indocyanine Green) 2.5 mg IJ ONETIME ONE Stop: 07/01/20 10:01 Last Admin: 07/01/20 13:05 Dose: Not Given Documented by: Indocyanine Green (Indocyanine Green) Confirm Administered Dose 25 mg .ROUTE .STK-MED ONE Stop: 07/01/20 11:40 Ivermectin (Ivermectin) 18 mg PO 06/30/20@1600 [facility] Stop: 06/30/20 16:01 Last Admin: 06/30/20 16:15 Dose: 18 mg Documented by: Ivermectin (Ivermectin) 18 mg PO ONETIME ONE Stop: 07/01/20 16:01 Ivermectin (Ivermectin) 18 mg PO ONETIME ONE Stop: 07/01/20 09:16 Last Admin: 07/01/20 09:55 Dose: 18 mg Documented by: Ketorolac Tromethamine (Toradol) Confirm Administered Dose 30 mg .ROUTE .STK-MED ONE Stop: 07/01/20 08:32 Labetalol HCl (Normodyne) Confirm Administered Dose 100 mg .ROUTE .STK-MED ONE Stop: 07/01/20 12:55 Lidocaine (Xylocaine-Mpf 2%) Confirm Administered Dose 5 ml .ROUTE .STK-MED ONE Stop: 07/01/20 08:32 Midazolam HCl (Versed 1 Mg/Ml) Confirm Administered Dose 2 mg .ROUTE .STK-MED ONE Stop: 07/01/20 08:31 Morphine Sulfate (Morphine) 4 mg IVPUSH ONETIME ONE Stop: 06/30/20 01:18 Last Admin: 06/30/20 01:27 Dose: 4 mg Documented by: Octyl Cyanoacrylate (Dermabond Advance) Confirm Administered Dose 1 applic .ROUTE .RUST-MED ONE Stop: 07/01/20 11:58 Ondansetron HCl (Zofran) 4 mg IVPUSH ONETIME ONE Stop: 06/30/20 01:18 Last Admin: 06/30/20 01:27 Dose: 4 mg Documented by: Ondansetron HCl (Zofran) Confirm Administered Dose 4 mg .ROUTE .ST-MED ONE Stop: 07/01/20 08:32 Permethrin 60 Gm (Tube) 0 each TOP ASDIRECTED ONE Stop: 06/30/20 14:01 Last Admin: 06/30/20 15:21 Dose: Not Given Documented by: Propofol (Diprivan 20 Ml) Confirm Administered Dose 200 mg .ROUTE .STK-MED ONE Stop: 07/01/20 08:31 Rocuronium [place] [facility] (Rocuronium [facility]) Confirm Administered Dose 50 mg .ROUTE .RUST-MED ONE Stop: 07/01/20 08:32 - Patient Data Lab Results Last 24 hrs: Laboratory Results - last 24 hr 07/02/20 07/02/20 Range/Units 05:25 05:25 WBC 8.06 (4.0-11.0) K/uL RBC 3.91 L (4.50-5.90) M/uL Hgb 12.6 L (13.0-17.0) g/dL Hct 36.7 L (38.0-50.0) % MCV 93.9 (80.0-98.0) fL MCH 32.2 H (27.0-32.0) pg MCHC 34.3 (31.0-37.0) g/dL RDW Std Deviation 47.7 (28.0-62.0) fl RDW Coeff of Aishwarya 14 (11.0-15.0) % Plt Count 182 (150-400) K/uL MPV 10.20 (7.40-12.00) fL Neut % (Auto) 58.9 (48.0-80.0) % Lymph % (Auto) 30.4 (16.0-40.0) % [place] % (Auto) 9.2 (0.0-15.0) % Eos % (Auto) 1.4 (0.0-7.0) % Baso % (Auto) 0.1 (0.0-1.5) % Neut # (Auto) 4.8 (1.4-5.7) K/uL Lymph # (Auto) 2.5 H (0.6-2.4) K/uL [place] # (Auto) 0.7 (0.0-0.8) K/uL Eos # (Auto) 0.1 (0.0-0.7) K/uL Baso # (Auto) 0.0 (0.0-0.1) K/uL Nucleated RBC % 0.0 /100WBC Nucleated RBCs # 0 K/uL Sodium 139 (136-148) mmol/L Potassium 4.3 (3.5-5.1) mmol/L Chloride 106 (98-107) mmol/L Carbon Dioxide 25.7 (21.0-32.0) mmol/L BUN 14 (7.0-18.0) mg/dL Creatinine 1.2 (0.8-1.3) mg/dL Est Cr Clr Drug Dosing 72.31 mL/min Estimated GFR (MDRD) > 60.0 ml/min Glucose 124 H (74-106) mg/dL Calcium 8.6 (8.5-10.1) mg/dL Total Bilirubin 0.6 (0.2-1.0) mg/dL AST 26 (15-37) IU/L ALT 38 (14-63) IU/L Alkaline Phosphatase 79 (46-116) U/L Total Protein 6.5 (6.4-8.2) g/dL Albumin 2.9 L (3.4-5.0) g/dL Globulin 3.6 (2.6-4.0) g/dL Albumin/Globulin Ratio 0.8 L (0.9-1.6) Result Diagrams: 07/02/20 05:25 07/02/20 05:25 Sepsis Event Note - Focused Exam Vital Signs: Vital Signs Temp Pulse Resp BP BP Pulse Ox 07/02/20 08:42 149/76 H 07/02/20 07:45 99.4 F 76 20 164/79 H 93 L 07/02/20 04:43 99 F 84 17 144/72 H 95 07/01/20 23:41 99 F 84 17 106/61 95 - My Orders Last 24 Hours: My Active Orders 07/01/20 14:35 Ambulate [RC] ASDIRECTED 07/01/20 14:36 IS (RT) [RT Incentive Spirometry] [RC] Q1HWA Acetaminophen/HYDROcodone [[place] 325-5 MG] 1 tab PO Q4H PRN 07/01/20 Dinner Low Fat Diet [DIET] <Laurent Barney - Last Filed: 07/02/20 13:51> - General Info Date of Service: 07/02/20 Subjective Update: Pain improved after surgery. Tolerating regular diet including meat loaf. Passing gas, no bowel movement. Voiding without issue. Ambulating in room. - Review of Systems General: Reports: No Symptoms - Patient Data Vitals - Most Recent: Last Vital Signs Temp 99 F 07/02/20 04:43 Pulse 84 07/02/20 04:43 Resp 17 07/02/20 04:43 BP 144/72 H 07/02/20 04:43 Pulse Ox 95 07/02/20 04:43 Weight - Most Recent: 206 lb 12.8 oz I&O - Last 24 Hours: Intake & Output 07/01/20 07/01/20 07/02/20 14:59 22:59 06:59 Intake Total 1800 1095 900 Output Total 600 1050 Balance 1800 495 -150 Lab Results Last 24 Hours: Laboratory Results - last 24 hr 07/02/20 07/02/20 Range/Units 05:25 05:25 WBC 8.06 (4.0-11.0) K/uL RBC 3.91 L (4.50-5.90) M/uL Hgb 12.6 L (13.0-17.0) g/dL Hct 36.7 L (38.0-50.0) % MCV 93.9 (80.0-98.0) fL MCH 32.2 H (27.0-32.0) pg MCHC 34.3 (31.0-37.0) g/dL RDW Std Deviation 47.7 (28.0-62.0) fl RDW Coeff of Aishwarya 14 (11.0-15.0) % Plt Count 182 (150-400) K/uL MPV 10.20 (7.40-12.00) fL Neut % (Auto) 58.9 (48.0-80.0) % Lymph % (Auto) 30.4 (16.0-40.0) % [place] % (Auto) 9.2 (0.0-15.0) % Eos % (Auto) 1.4 (0.0-7.0) % Baso % (Auto) 0.1 (0.0-1.5) % Neut # (Auto) 4.8 (1.4-5.7) K/uL Lymph # (Auto) 2.5 H (0.6-2.4) K/uL [place] # (Auto) 0.7 (0.0-0.8) K/uL Eos # (Auto) 0.1 (0.0-0.7) K/uL Baso # (Auto) 0.0 (0.0-0.1) K/uL Nucleated RBC % 0.0 /100WBC Nucleated RBCs # 0 K/uL Sodium 139 (136-148) mmol/L Potassium 4.3 (3.5-5.1) mmol/L Chloride 106 (98-107) mmol/L Carbon Dioxide 25.7 (21.0-32.0) mmol/L BUN 14 (7.0-18.0) mg/dL Creatinine 1.2 (0.8-1.3) mg/dL Est Cr Clr Drug Dosing 72.31 mL/min Estimated GFR (MDRD) > 60.0 ml/min Glucose 124 H (74-106) mg/dL Calcium 8.6 (8.5-10.1) mg/dL Total Bilirubin 0.6 (0.2-1.0) mg/dL AST 26 (15-37) IU/L ALT 38 (14-63) IU/L Alkaline Phosphatase 79 (46-116) U/L Total Protein 6.5 (6.4-8.2) g/dL Albumin 2.9 L (3.4-5.0) g/dL Globulin 3.6 (2.6-4.0) g/dL Albumin/Globulin Ratio 0.8 L (0.9-1.6) Med Orders - Current: Current Medications Hydrocodone Bitart/Acetaminophen ([place] 325-5 Mg) 1 tab PO Q4H PRN PRN Reason: Pain Last Admin: 07/02/20 04:45 Dose: 1 tab Documented by: Cefoxitin Sodium 2 gm/ Premix 50 mls @ 100 mls/hr IV Q6H [facility] Stop: 07/02/20 06:59 Last Admin: 07/02/20 06:18 Dose: 100 mls/hr Documented by: Lisinopril (Prinivil) 20 mg PO DAILY [facility] Last Admin: 07/01/20 09:54 Dose: 20 mg Documented by: Morphine Sulfate (Morphine) 2 mg IVPUSH Q4H PRN PRN Reason: Pain Ondansetron HCl (Zofran) 4 mg IVPUSH Q4H PRN PRN Reason: Nausea Scopolamine (Transderm-Scop) 1.5 mg TRDERM Q72H PRN PRN Reason: Nausea Discontinued Medications Cefoxitin Sodium (Mefoxin) Confirm Administered Dose 1 gm .ROUTE .STK-MED ONE Stop: 07/01/20 12:29 Fentanyl (Sublimaze) Confirm Administered Dose 250 mcg .ROUTE .STK-MED ONE Stop: 07/01/20 08:31 Fentanyl (Sublimaze) Confirm Administered Dose 250 mcg .ROUTE .STK-MED ONE Stop: 07/01/20 12:58 Fentanyl (Sublimaze) Confirm Administered Dose 100 mcg .ROUTE .STK-MED ONE Stop: 07/01/20 13:59 Glycopyrrolate (Robinul) Confirm Administered Dose 0.8 mg .ROUTE .STK-MED ONE Stop: 07/01/20 08:32 Hydralazine HCl (Apresoline) 20 mg IVPUSH ONETIME ONE Stop: 06/30/20 03:21 Last Admin: 06/30/20 03:29 Dose: 20 mg Documented by: Hydralazine HCl (Apresoline) Confirm Administered Dose 20 mg .ROUTE .STK-MED ONE Stop: 07/01/20 13:02 Hydromorphone HCl (Dilaudid) 1 mg IVPUSH ONETIME ONE Stop: 06/30/20 02:35 Last Admin: 06/30/20 02:38 Dose: 1 mg Documented by: Hydromorphone HCl (Dilaudid) 1 mg IVPUSH ONETIME ONE Stop: 06/30/20 02:38 Last Admin: 06/30/20 02:39 Dose: Not Given Documented by: Hydromorphone HCl (Dilaudid) Confirm Administered Dose 1 mg .ROUTE .STK-MED ONE Stop: 06/30/20 02:36 Last Admin: 06/30/20 02:38 Dose: Not Given Documented by: Dextrose/Sodium Chloride (Dextrose 5%-Normal Saline) 1,000 mls @ 999 mls/hr IV ASDIRECTED [facility] Dextrose/Sodium Chloride (Dextrose 5%-Normal Saline) 1,000 mls @ 999 mls/hr IV NOW STA Stop: 06/30/20 02:28 Last Admin: 06/30/20 01:29 Dose: 999 mls/hr Documented by: Piperacillin Sod/Tazobactam (Sod 4.5 gm/ Sodium Chloride) 100 mls @ 100 mls/hr IV ONETIME ONE Stop: 06/30/20 04:13 Last Admin: 06/30/20 03:32 Dose: 100 mls/hr Documented by: Sodium Chloride (Normal Saline) 1,000 mls @ 125 mls/hr IV ASDIRECTED [facility] Last Admin: 06/30/20 03:31 Dose: 125 mls/hr Documented by: Lactated Ringer's (Ringers, Lactated) 1,000 mls @ 125 mls/hr IV ASDIRECTED [facility] Last Admin: 06/30/20 08:48 Dose: 125 mls/hr Documented by: Piperacillin Sod/Tazobactam (Sod 3.375 gm/ Sodium Chloride) 50 mls @ 100 mls/hr IV Q6H [facility] Last Admin: 06/30/20 11:29 Dose: 100 mls/hr Documented by: Lactated Ringer's (Ringers, Lactated) 1,000 mls @ 125 mls/hr IV Q8H [facility] Last Admin: 07/01/20 16:21 Dose: Not Given Documented by: Bupivacaine HCl/Epinephrine Bitart (Sensorc Mpf 0.25%-Epi 1:[id number]) Confirm Administered Dose 30 mls @ as directed .ROUTE .ST-MED ONE Stop: 07/01/20 11:58 Indocyanine Green (Indocyanine Green) 2.5 mg IJ ONETIME ONE Stop: 07/01/20 10:01 Last Admin: 07/01/20 13:05 Dose: Not Given Documented by: Indocyanine Green (Indocyanine Green) Confirm Administered Dose 25 mg .ROUTE .STK-MED ONE Stop: 07/01/20 11:40 Ivermectin (Ivermectin) 18 mg PO 06/30/20@1600 [facility] Stop: 06/30/20 16:01 Last Admin: 06/30/20 16:15 Dose: 18 mg Documented by: Ivermectin (Ivermectin) 18 mg PO ONETIME ONE Stop: 07/01/20 16:01 Ivermectin (Ivermectin) 18 mg PO ONETIME ONE Stop: 07/01/20 09:16 Last Admin: 07/01/20 09:55 Dose: 18 mg Documented by: Ketorolac Tromethamine (Toradol) Confirm Administered Dose 30 mg .ROUTE .STK-MED ONE Stop: 07/01/20 08:32 Labetalol HCl (Normodyne) Confirm Administered Dose 100 mg .ROUTE .ST-MED ONE Stop: 07/01/20 12:55 Lidocaine (Xylocaine-Mpf 2%) Confirm Administered Dose 5 ml .ROUTE .ST-MED ONE Stop: 07/01/20 08:32 Midazolam HCl (Versed 1 Mg/Ml) Confirm Administered Dose 2 mg .ROUTE .ST-MED ONE Stop: 07/01/20 08:31 Morphine Sulfate (Morphine) 4 mg IVPUSH ONETIME ONE Stop: 06/30/20 01:18 Last Admin: 06/30/20 01:27 Dose: 4 mg Documented by: Octyl Cyanoacrylate (Dermabond Advance) Confirm Administered Dose 1 applic .ROUTE .STK-MED ONE Stop: 07/01/20 11:58 Ondansetron HCl (Zofran) 4 mg IVPUSH ONETIME ONE Stop: 06/30/20 01:18 Last Admin: 06/30/20 01:27 Dose: 4 mg Documented by: Ondansetron HCl (Zofran) Confirm Administered Dose 4 mg .ROUTE .STK-MED ONE Stop: 07/01/20 08:32 Permethrin 60 Gm (Tube) 0 each TOP ASDIRECTED ONE Stop: 06/30/20 14:01 Last Admin: 06/30/20 15:21 Dose: Not Given Documented by: Propofol (Diprivan 20 Ml) Confirm Administered Dose 200 mg .ROUTE .STK-MED ONE Stop: 07/01/20 08:31 Rocuronium [facility] (Rocuronium [facility]) Confirm Administered Dose 50 mg .ROUTE .STK-MED ONE Stop: 07/01/20 08:32 - Exam General: Alert, Oriented, No Acute Distress Lungs: Normal Respiratory Effort Cardiovascular: Regular Rate GI/Abdominal Exam: Soft, Non-Tender, Other (Mild distention. Incisions are clean dry and intact.) - Patient Data Lab Results Last 24 hrs: Laboratory Results - last 24 hr 07/02/20 07/02/20 Range/Units 05:25 05:25 WBC 8.06 (4.0-11.0) K/uL RBC 3.91 L (4.50-5.90) M/uL Hgb 12.6 L (13.0-17.0) g/dL Hct 36.7 L (38.0-50.0) % MCV 93.9 (80.0-98.0) fL MCH 32.2 H (27.0-32.0) pg MCHC 34.3 (31.0-37.0) g/dL RDW Std Deviation 47.7 (28.0-62.0) fl RDW Coeff of Aishwarya 14 (11.0-15.0) % Plt Count 182 (150-400) K/uL MPV 10.20 (7.40-12.00) fL Neut % (Auto) 58.9 (48.0-80.0) % Lymph % (Auto) 30.4 (16.0-40.0) % [place] % (Auto) 9.2 (0.0-15.0) % Eos % (Auto) 1.4 (0.0-7.0) % Baso % (Auto) 0.1 (0.0-1.5) % Neut # (Auto) 4.8 (1.4-5.7) K/uL Lymph # (Auto) 2.5 H (0.6-2.4) K/uL [place] # (Auto) 0.7 (0.0-0.8) K/uL Eos # (Auto) 0.1 (0.0-0.7) K/uL Baso # (Auto) 0.0 (0.0-0.1) K/uL Nucleated RBC % 0.0 /100WBC Nucleated RBCs # 0 K/uL Sodium 139 (136-148) mmol/L Potassium 4.3 (3.5-5.1) mmol/L Chloride 106 (98-107) mmol/L Carbon Dioxide 25.7 (21.0-32.0) mmol/L BUN 14 (7.0-18.0) mg/dL Creatinine 1.2 (0.8-1.3) mg/dL Est Cr Clr Drug Dosing 72.31 mL/min Estimated GFR (MDRD) > 60.0 ml/min Glucose 124 H (74-106) mg/dL Calcium 8.6 (8.5-10.1) mg/dL Total Bilirubin 0.6 (0.2-1.0) mg/dL AST 26 (15-37) IU/L ALT 38 (14-63) IU/L Alkaline Phosphatase 79 (46-116) U/L Total Protein 6.5 (6.4-8.2) g/dL Albumin 2.9 L (3.4-5.0) g/dL Globulin 3.6 (2.6-4.0) g/dL Albumin/Globulin Ratio 0.8 L (0.9-1.6) Result Diagrams: 07/02/20 05:25 07/02/20 05:25 Sepsis Event Note - Evaluation Sepsis Screening Result: No Definite Risk - Focused Exam Vital Signs: Vital Signs Temp Pulse Resp BP Pulse Ox 07/02/20 04:43 99 F 84 17 144/72 H 95 07/01/20 23:41 99 F 84 17 106/61 95 07/01/20 20:00 98 F 81 16 132/65 96 - Problem List & Annotations (1) Cholecystitis SNOMED Code(s): 49667445 Code(s): K81.9 - CHOLECYSTITIS, UNSPECIFIED Status: Acute - Problem List Review Problem List Initiated/Reviewed/Updated: Yes - Assessment Assessment:: 65 year old male s/p POD 1 laparoscopic cholecystectomy. Doing well. Pain controlled. Tolerating diet and having bowel function. Vitals stable, exam benign. AM labs ordered today per Medicine Service. - Plan Plan:: -Follow up morning labs -Likely appropriate for discharge from General Surgery standpoint given pain controlled, tolerating diet and having bowel function. -Follow up in General Surgery clinic as appropriate.
[2020-07-02] MEDS: Lisinopril 10 MG Tab PO SCH (08:42)
[2020-07-02 11:37] VITALS: BP 151/80; PULSE 65
--- NOTE | 2020-07-02 11:41 | PN ---
SUBJECTIVE: The patient is resting comfortably in his room. He has no complaints. He has been tolerating his diet well. No nausea or vomiting. His pain has been well controlled. The patient has been up in his room. He says he has been having no issues with voiding. In fact, he says he is voiding a lot. OBJECTIVE: GENERAL: He is lying comfortably in the room. He is alert, oriented, in no acute distress. VITAL SIGNS: Temperature is 99.4, blood pressure is 149/76, satting 93% on room air. ABDOMEN: Soft, maybe some mild bloating. Incisions are all intact, Dermabond. No signs of infection. There is very minimal incisional tenderness. LABORATORY DATA: This morning, white cell count 8.06, hemoglobin is 12.6, platelet count is 182. LFTs all within normal limits. ASSESSMENT AND PLAN: This is a pleasant 65-year-old gentleman who is postop day #1 from a laparoscopic cholecystectomy. He is tolerating his diet. His pain is controlled. Did discuss with the Medicine team this morning that from a surgical standpoint, he is free for discharge. He should follow with me in clinic. I did go with the patient again the importance of taking his antihypertensive medications. I also went over postoperative care with the patient that he should take it easy for the next couple of days and avoiding heavy lifting or strenuous activities for at least 2 weeks. He may shower today. Dermabond will fall off on its own, but he should still try to keep the wounds clean and dry. All the patient's questions were answered. I again did discuss the patient with the Medicine team. NAHID CABRAL /[id number]
[2020-07-02] MEDS ORDERED: Docusate Sodium 100 MG Cap PO ONE (11:50)
--- NOTE | 2020-07-02 12:06 | PCM.DCSUM1 ---
<Michael Lozada - Last Filed: 07/02/20 14:30> Discharge Summary - Hospital Course Free Text/Narrative:: 65-year-old male admitted for symptomatic cholelithiasis and uncontrolled HTN. He has a PMH of HTN, CVA, tobacco abuse, cholelithiasis and scabies. Patient has a history of medication non-compliance. On admission, CBC and CMP were unremarkable. RUQ u/s showed findings suggesting acute cholecystitis and 2.0 cm calculus impacted in neck of gallbladder. General surgery was consulted and stated patient does not have acute cholecystitis but has symptomatic cholelithiasis. Patient's elevated blood pressures were treated and he underwent cholecystectomy. After the surgery, patient was able to tolerate PO, passing flatus and noted that his pain was controlled. Furthermore, patient reported being diagnosed with scabies and was prescribed medication but did not fill his scripts due to financial situation. He was started on PO ivermectin durin is hospital stay. He was discharged in stable condition and advised to follow-up with general surgery and PCP. Discharged with scripts for norco prn, ivermectin, lisinopril 30 mg qd and colace. - Discharge Data Discharge Date: 07/02/20 Discharge Disposition: Home, Self-Care 01 Condition: Stable - Referral to Home Health Primary Care Physician: Timothy Chavira MD - Discharge Diagnosis/Problem(s) (1) Biliary colic SNOMED Code(s): 23881742 ICD Code: K80.50 - CALCULUS OF BILE DUCT W/O CHOLANGITIS OR CHOLECYST W/O OBST Status: Acute (2) Scabies SNOMED Code(s): 213144017, 590432808 ICD Code: B86 - SCABIES Status: Acute (3) Abdominal pain SNOMED Code(s): 34869122 ICD Code: R10.9 - UNSPECIFIED ABDOMINAL PAIN Status: Acute Qualifiers: Abdominal location: epigastric Qualified Code(s): R10.13 - Epigastric pain (4) Hypertension SNOMED Code(s): 59096675 ICD Code: I10 - ESSENTIAL (PRIMARY) HYPERTENSION Status: Acute (5) CVA (cerebral vascular accident) SNOMED Code(s): 251171241 ICD Code: I63.9 - CEREBRAL INFARCTION, UNSPECIFIED Status: Acute (6) Tobacco abuse SNOMED Code(s): 685472135 ICD Code: Z72.0 - TOBACCO USE Status: Acute - Patient Summary/Data Operative Procedure(s) Performed: Laparoscopic cholecystectomy Consults: Consultations 06/30/20 08:07 Consult to Physician [CONS] Urgent 06/30/20 11:07 Consult to Physician [CONS] Urgent - Patient Instructions Diet, Other: Low fat diet. Activity: As Tolerated Notify Provider of: Fever, Increased Pain, Swelling and Redness, Drainage, Nausea and/or Vomiting - Discharge Plan *PRESCRIPTION DRUG MONITORING PROGRAM REVIEWED*: No *COPY OF PRESCRIPTION DRUG MONITORING REPORT IN PATIENT FLORENTIN: No Prescriptions/Med Rec: Docusate Sodium [Colace] 100 mg PO BID PRN 5 Days #10 cap PRN Reason: Constipation Ivermectin 18 mg PO ASDIRECTED 3 Days #18 tablet lisinopriL [Lisinopril] 30 mg PO DAILY 30 Days #30 tablet Acetaminophen/HYDROcodone [[place] 325-5 MG] 1 tab PO Q8H PRN 5 Days #15 tablet PRN Reason: Pain Home Medications: Home Meds Acetaminophen/HYDROcodone [[place] 325-5 MG] 1 tab PO Q8H PRN 5 Days #15 tablet 07/02/20 [Rx] Docusate Sodium [Colace] 100 mg PO BID PRN 5 Days #10 cap 07/02/20 [Rx] Ivermectin 18 mg PO ASDIRECTED 3 Days #18 tablet 07/02/20 [Rx] lisinopriL [Lisinopril] 30 mg PO DAILY 30 Days #30 tablet 07/02/20 [Rx] Oxygen Therapy Mode: Room Air Patient Handouts: Acetaminophen; Hydrocodone tablets or capsules, Cholelithiasis, [id number], Docusate capsules Forms: ED Department Discharge Referrals: Timothy Chavira MD [Primary Care Provider] - 07/19/20 9:00 am - Discharge Summary/Plan Comment DC Time >30 min.: No - Patient Data Vitals - Most Recent: Last Vital Signs Temp 36.8 C 07/02/20 11:36 Pulse 65 07/02/20 11:36 Resp 18 07/02/20 11:36 BP 151/80 H 07/02/20 11:36 Pulse Ox 92 L 07/02/20 11:36 Weight - Most Recent: 93.803 kg I&O - Last 24 hours: Intake & Output 07/01/20 07/02/20 07/02/20 22:59 06:59 14:59 Intake Total 1095 900 Output Total 600 1050 Balance 495 -150 Lab Results - Last 24 hrs: Laboratory Results - last 24 hr 07/02/20 07/02/20 Range/Units 05:25 05:25 WBC 8.06 (4.0-11.0) K/uL RBC 3.91 L (4.50-5.90) M/uL Hgb 12.6 L (13.0-17.0) g/dL Hct 36.7 L (38.0-50.0) % MCV 93.9 (80.0-98.0) fL MCH 32.2 H (27.0-32.0) pg MCHC 34.3 (31.0-37.0) g/dL RDW Std Deviation 47.7 (28.0-62.0) fl RDW Coeff of Aishwarya 14 (11.0-15.0) % Plt Count 182 (150-400) K/uL MPV 10.20 (7.40-12.00) fL Neut % (Auto) 58.9 (48.0-80.0) % Lymph % (Auto) 30.4 (16.0-40.0) % [place] % (Auto) 9.2 (0.0-15.0) % Eos % (Auto) 1.4 (0.0-7.0) % Baso % (Auto) 0.1 (0.0-1.5) % Neut # (Auto) 4.8 (1.4-5.7) K/uL Lymph # (Auto) 2.5 H (0.6-2.4) K/uL [place] # (Auto) 0.7 (0.0-0.8) K/uL Eos # (Auto) 0.1 (0.0-0.7) K/uL Baso # (Auto) 0.0 (0.0-0.1) K/uL Nucleated RBC % 0.0 /100WBC Nucleated RBCs # 0 K/uL Sodium 139 (136-148) mmol/L Potassium 4.3 (3.5-5.1) mmol/L Chloride 106 (98-107) mmol/L Carbon Dioxide 25.7 (21.0-32.0) mmol/L BUN 14 (7.0-18.0) mg/dL Creatinine 1.2 (0.8-1.3) mg/dL Est Cr Clr Drug Dosing 72.31 mL/min Estimated GFR (MDRD) > 60.0 ml/min Glucose 124 H (74-106) mg/dL Calcium 8.6 (8.5-10.1) mg/dL Total Bilirubin 0.6 (0.2-1.0) mg/dL AST 26 (15-37) IU/L ALT 38 (14-63) IU/L Alkaline Phosphatase 79 (46-116) U/L Total Protein 6.5 (6.4-8.2) g/dL Albumin 2.9 L (3.4-5.0) g/dL Globulin 3.6 (2.6-4.0) g/dL Albumin/Globulin Ratio 0.8 L (0.9-1.6) Med Orders - Current: Current Medications Hydrocodone Bitart/Acetaminophen ([place] 325-5 Mg) 1 tab PO Q4H PRN PRN Reason: Pain Last Admin: 07/02/20 04:45 Dose: 1 tab Documented by: Lisinopril (Prinivil) 20 mg PO DAILY [facility] Last Admin: 07/02/20 08:42 Dose: 20 mg Documented by: Morphine Sulfate (Morphine) 2 mg IVPUSH Q4H PRN PRN Reason: Pain Ondansetron HCl (Zofran) 4 mg IVPUSH Q4H PRN PRN Reason: Nausea Scopolamine (Transderm-Scop) 1.5 mg TRDERM Q72H PRN PRN Reason: Nausea Discontinued Medications Cefoxitin Sodium (Mefoxin) Confirm Administered Dose 1 gm .ROUTE .STK-MED ONE Stop: 07/01/20 12:29 Docusate Sodium (Colace) 100 mg PO ONETIME ONE Stop: 07/02/20 11:51 Fentanyl (Sublimaze) Confirm Administered Dose 250 mcg .ROUTE .STK-MED ONE Stop: 07/01/20 08:31 Fentanyl (Sublimaze) Confirm Administered Dose 250 mcg .ROUTE .STK-MED ONE Stop: 07/01/20 12:58 Fentanyl (Sublimaze) Confirm Administered Dose 100 mcg .ROUTE .STK-MED ONE Stop: 07/01/20 13:59 Glycopyrrolate (Robinul) Confirm Administered Dose 0.8 mg .ROUTE .STK-MED ONE Stop: 07/01/20 08:32 Hydralazine HCl (Apresoline) 20 mg IVPUSH ONETIME ONE Stop: 06/30/20 03:21 Last Admin: 06/30/20 03:29 Dose: 20 mg Documented by: Hydralazine HCl (Apresoline) Confirm Administered Dose 20 mg .ROUTE .STK-MED ONE Stop: 07/01/20 13:02 Hydromorphone HCl (Dilaudid) 1 mg IVPUSH ONETIME ONE Stop: 06/30/20 02:35 Last Admin: 06/30/20 02:38 Dose: 1 mg Documented by: Hydromorphone HCl (Dilaudid) 1 mg IVPUSH ONETIME ONE Stop: 06/30/20 02:38 Last Admin: 06/30/20 02:39 Dose: Not Given Documented by: Hydromorphone HCl (Dilaudid) Confirm Administered Dose 1 mg .ROUTE .STK-MED ONE Stop: 06/30/20 02:36 Last Admin: 06/30/20 02:38 Dose: Not Given Documented by: Dextrose/Sodium Chloride (Dextrose 5%-Normal Saline) 1,000 mls @ 999 mls/hr IV ASDIRECTED [facility] Dextrose/Sodium Chloride (Dextrose 5%-Normal Saline) 1,000 mls @ 999 mls/hr IV NOW STA Stop: 06/30/20 02:28 Last Admin: 06/30/20 01:29 Dose: 999 mls/hr Documented by: Piperacillin Sod/Tazobactam (Sod 4.5 gm/ Sodium Chloride) 100 mls @ 100 mls/hr IV ONETIME ONE Stop: 06/30/20 04:13 Last Admin: 06/30/20 03:32 Dose: 100 mls/hr Documented by: Sodium Chloride (Normal Saline) 1,000 mls @ 125 mls/hr IV ASDIRECTED [facility] Last Admin: 06/30/20 03:31 Dose: 125 mls/hr Documented by: Lactated Ringer's (Ringers, Lactated) 1,000 mls @ 125 mls/hr IV ASDIRECTED [facility] Last Admin: 06/30/20 08:48 Dose: 125 mls/hr Documented by: Piperacillin Sod/Tazobactam (Sod 3.375 gm/ Sodium Chloride) 50 mls @ 100 mls/hr IV Q6H [facility] Last Admin: 06/30/20 11:29 Dose: 100 mls/hr Documented by: Lactated Ringer's (Ringers, Lactated) 1,000 mls @ 125 mls/hr IV Q8H [facility] Last Admin: 07/01/20 16:21 Dose: Not Given Documented by: Bupivacaine HCl/Epinephrine Bitart (Sensorc Mpf 0.25%-Epi 1:[id number]) Confirm Administered Dose 30 mls @ as directed .ROUTE .STK-MED ONE Stop: 07/01/20 11:58 Cefoxitin Sodium 2 gm/ Premix 50 mls @ 100 mls/hr IV Q6H [facility] Stop: 07/02/20 06:59 Last Admin: 07/02/20 06:18 Dose: 100 mls/hr Documented by: Indocyanine Green (Indocyanine Green) 2.5 mg IJ ONETIME ONE Stop: 07/01/20 10:01 Last Admin: 07/01/20 13:05 Dose: Not Given Documented by: Indocyanine Green (Indocyanine Green) Confirm Administered Dose 25 mg .ROUTE .STK-MED ONE Stop: 07/01/20 11:40 Ivermectin (Ivermectin) 18 mg PO 06/30/20@1600 [facility] Stop: 06/30/20 16:01 Last Admin: 06/30/20 16:15 Dose: 18 mg Documented by: Ivermectin (Ivermectin) 18 mg PO ONETIME ONE Stop: 07/01/20 16:01 Ivermectin (Ivermectin) 18 mg PO ONETIME ONE Stop: 07/01/20 09:16 Last Admin: 07/01/20 09:55 Dose: 18 mg Documented by: Ketorolac Tromethamine (Toradol) Confirm Administered Dose 30 mg .ROUTE .STK-MED ONE Stop: 07/01/20 08:32 Labetalol HCl (Normodyne) Confirm Administered Dose 100 mg .ROUTE .STK-MED ONE Stop: 07/01/20 12:55 Lidocaine (Xylocaine-Mpf 2%) Confirm Administered Dose 5 ml .ROUTE .STK-MED ONE Stop: 07/01/20 08:32 Midazolam HCl (Versed 1 Mg/Ml) Confirm Administered Dose 2 mg .ROUTE .STK-MED ONE Stop: 07/01/20 08:31 Morphine Sulfate (Morphine) 4 mg IVPUSH ONETIME ONE Stop: 06/30/20 01:18 Last Admin: 06/30/20 01:27 Dose: 4 mg Documented by: Octyl Cyanoacrylate (Dermabond Advance) Confirm Administered Dose 1 applic .ROUTE .STK-MED ONE Stop: 07/01/20 11:58 Ondansetron HCl (Zofran) 4 mg IVPUSH ONETIME ONE Stop: 06/30/20 01:18 Last Admin: 06/30/20 01:27 Dose: 4 mg Documented by: Ondansetron HCl (Zofran) Confirm Administered Dose 4 mg .ROUTE .STK-MED ONE Stop: 07/01/20 08:32 Permethrin 60 Gm (Tube) 0 each TOP ASDIRECTED ONE Stop: 06/30/20 14:01 Last Admin: 06/30/20 15:21 Dose: Not Given Documented by: Propofol (Diprivan 20 Ml) Confirm Administered Dose 200 mg .ROUTE .STK-MED ONE Stop: 07/01/20 08:31 Rocuronium [place] (Rocuronium [place]) Confirm Administered Dose 50 mg .ROUTE .STK-MED ONE Stop: 07/01/20 08:32 <Russ Stephen - Last Filed: 07/03/20 14:05> Discharge Summary - Hospital Course Free Text/Narrative:: I have seen and evaluated the patient and agree with the residents note unless specified in my note - Referral to Home Health Primary Care Physician: Timothy Chavira MD - Patient Summary/Data Consults: Consultations 06/30/20 08:07 Consult to Physician [CONS] Urgent 06/30/20 11:07 Consult to Physician [CONS] Urgent - Patient Data Vitals - Most Recent: Last Vital Signs Temp 36.8 C 07/02/20 11:36 Pulse 65 07/02/20 11:36 Resp 18 07/02/20 11:36 BP 151/80 H 07/02/20 11:36 Pulse Ox 92 L 07/02/20 11:36 Med Orders - Current: Current Medications Discontinued Medications Hydrocodone Bitart/Acetaminophen ([place] 325-5 Mg) 1 tab PO Q4H PRN PRN Reason: Pain Last Admin: 07/02/20 04:45 Dose: 1 tab Documented by: Cefoxitin Sodium (Mefoxin) Confirm Administered Dose 1 gm .ROUTE .STK-MED ONE Stop: 07/01/20 12:29 Docusate Sodium (Colace) 100 mg PO ONETIME ONE Stop: 07/02/20 11:51 Fentanyl (Sublimaze) Confirm Administered Dose 250 mcg .ROUTE .STK-MED ONE Stop: 07/01/20 08:31 Fentanyl (Sublimaze) Confirm Administered Dose 250 mcg .ROUTE .STK-MED ONE Stop: 07/01/20 12:58 Fentanyl (Sublimaze) Confirm Administered Dose 100 mcg .ROUTE .STK-MED ONE Stop: 07/01/20 13:59 Glycopyrrolate (Robinul) Confirm Administered Dose 0.8 mg .ROUTE .STK-MED ONE Stop: 07/01/20 08:32 Hydralazine HCl (Apresoline) 20 mg IVPUSH ONETIME ONE Stop: 06/30/20 03:21 Last Admin: 06/30/20 03:29 Dose: 20 mg Documented by: Hydralazine HCl (Apresoline) Confirm Administered Dose 20 mg .ROUTE .STK-MED ONE Stop: 07/01/20 13:02 Hydromorphone HCl (Dilaudid) 1 mg IVPUSH ONETIME ONE Stop: 06/30/20 02:35 Last Admin: 06/30/20 02:38 Dose: 1 mg Documented by: Hydromorphone HCl (Dilaudid) 1 mg IVPUSH ONETIME ONE Stop: 06/30/20 02:38 Last Admin: 06/30/20 02:39 Dose: Not Given Documented by: Hydromorphone HCl (Dilaudid) Confirm Administered Dose 1 mg .ROUTE .STK-MED ONE Stop: 06/30/20 02:36 Last Admin: 06/30/20 02:38 Dose: Not Given Documented by: Dextrose/Sodium Chloride (Dextrose 5%-Normal Saline) 1,000 mls @ 999 mls/hr IV ASDIRECTED [facility] Dextrose/Sodium Chloride (Dextrose 5%-Normal Saline) 1,000 mls @ 999 mls/hr IV NOW STA Stop: 06/30/20 02:28 Last Admin: 06/30/20 01:29 Dose: 999 mls/hr Documented by: Piperacillin Sod/Tazobactam (Sod 4.5 gm/ Sodium Chloride) 100 mls @ 100 mls/hr IV ONETIME ONE Stop: 06/30/20 04:13 Last Admin: 06/30/20 03:32 Dose: 100 mls/hr Documented by: Sodium Chloride (Normal Saline) 1,000 mls @ 125 mls/hr IV ASDIRECTED [facility] Last Admin: 06/30/20 03:31 Dose: 125 mls/hr Documented by: Lactated Ringer's (Ringers, Lactated) 1,000 mls @ 125 mls/hr IV ASDIRECTED [facility] Last Admin: 06/30/20 08:48 Dose: 125 mls/hr Documented by: Piperacillin Sod/Tazobactam (Sod 3.375 gm/ Sodium Chloride) 50 mls @ 100 mls/hr IV Q6H [facility] Last Admin: 06/30/20 11:29 Dose: 100 mls/hr Documented by: Lactated Ringer's (Ringers, Lactated) 1,000 mls @ 125 mls/hr IV Q8H [facility] Last Admin: 07/01/20 16:21 Dose: Not Given Documented by: Bupivacaine HCl/Epinephrine Bitart (Sensorc Mpf 0.25%-Epi 1:352015) Confirm Administered Dose 30 mls @ as directed .ROUTE .STK-MED ONE Stop: 07/01/20 11:58 Cefoxitin Sodium 2 gm/ Premix 50 mls @ 100 mls/hr IV Q6H [facility] Stop: 07/02/20 06:59 Last Admin: 07/02/20 06:18 Dose: 100 mls/hr Documented by: Indocyanine Green (Indocyanine Green) 2.5 mg IJ ONETIME ONE Stop: 07/01/20 10:01 Last Admin: 07/01/20 13:05 Dose: Not Given Documented by: Indocyanine Green (Indocyanine Green) Confirm Administered Dose 25 mg .ROUTE .STK-MED ONE Stop: 07/01/20 11:40 Ivermectin (Ivermectin) 18 mg PO 06/30/20@1600 [facility] Stop: 06/30/20 16:01 Last Admin: 06/30/20 16:15 Dose: 18 mg Documented by: Ivermectin (Ivermectin) 18 mg PO ONETIME ONE Stop: 07/01/20 16:01 Ivermectin (Ivermectin) 18 mg PO ONETIME ONE Stop: 07/01/20 09:16 Last Admin: 07/01/20 09:55 Dose: 18 mg Documented by: Ketorolac Tromethamine (Toradol) Confirm Administered Dose 30 mg .ROUTE .STK-MED ONE Stop: 07/01/20 08:32 Labetalol HCl (Normodyne) Confirm Administered Dose 100 mg .ROUTE .STK-MED ONE Stop: 07/01/20 12:55 Lidocaine (Xylocaine-Mpf 2%) Confirm Administered Dose 5 ml .ROUTE .STK-MED ONE Stop: 07/01/20 08:32 Lisinopril (Prinivil) 20 mg PO DAILY [place] Last Admin: 07/02/20 08:42 Dose: 20 mg Documented by: Midazolam HCl (Versed 1 Mg/Ml) Confirm Administered Dose 2 mg .ROUTE .STK-MED ONE Stop: 07/01/20 08:31 Morphine Sulfate (Morphine) 4 mg IVPUSH ONETIME ONE Stop: 06/30/20 01:18 Last Admin: 06/30/20 01:27 Dose: 4 mg Documented by: Morphine Sulfate (Morphine) 2 mg IVPUSH Q4H PRN PRN Reason: Pain Octyl Cyanoacrylate (Dermabond Advance) Confirm Administered Dose 1 applic .ROUTE .STK-MED ONE Stop: 07/01/20 11:58 Ondansetron HCl (Zofran) 4 mg IVPUSH ONETIME ONE Stop: 06/30/20 01:18 Last Admin: 06/30/20 01:27 Dose: 4 mg Documented by: Ondansetron HCl (Zofran) 4 mg IVPUSH Q4H PRN PRN Reason: Nausea Ondansetron HCl (Zofran) Confirm Administered Dose 4 mg .ROUTE .STK-MED ONE Stop: 07/01/20 08:32 Permethrin 60 Gm (Tube) 0 each TOP ASDIRECTED ONE Stop: 06/30/20 14:01 Last Admin: 06/30/20 15:21 Dose: Not Given Documented by: Propofol (Diprivan 20 Ml) Confirm Administered Dose 200 mg .ROUTE .STK-MED ONE Stop: 07/01/20 08:31 Rocuronium [place] (Rocuronium [place]) Confirm Administered Dose 50 mg .ROUTE .STK-MED ONE Stop: 07/01/20 08:32 Scopolamine (Transderm-Scop) 1.5 mg TRDERM Q72H PRN PRN Reason: Nausea
== END 2020-07-02 13:00 | disposition home or self-care (01) | DRG 419 ==
LOC: MW.ED 00:40 → MW.MS 03:42
PROVIDERS: ADMIT Internal Medicine; ATTEND Internal Medicine
PROC: 0FT44ZZ Resection of Gallbladder, Percutaneous Endoscopic Approach (ICD-10-PCS; principal; 2020-07-01)
DX: K80.10 Calculus of gallbladder with chronic cholecystitis without obstruction (principal); B86 Scabies; K81.0 Acute cholecystitis; I10 Essential (primary) hypertension; E78.00 Pure hypercholesterolemia, unspecified; K21.9 Gastro-esophageal reflux disease without esophagitis; G89.29 Other chronic pain; F17.210 Nicotine dependence, cigarettes, uncomplicated; E78.5 Hyperlipidemia, unspecified; Z87.440 Personal history of urinary (tract) infections; Z79.899 Other long term (current) drug therapy; Z86.73 Personal history of transient ischemic attack (TIA), and cerebral infarction without residual deficits; M54.9 Dorsalgia, unspecified; Z79.82 Long term (current) use of aspirin; Z87.442 Personal history of urinary calculi; F17.200 Nicotine dependence, unspecified, uncomplicated; Z88.8 Allergy status to other drugs, medicaments and biological substances; Z20.822 Contact with and (suspected) exposure to COVID-19
CPT/HCPCS: 36415; 71045; 71045-26; 76705; 76705-26; 80053; 81003; 83690; 83735; 84443; 85025; 85610; 88304; 93005; 96374; 96375; 99222; 99232; 99238; 99285-25; A9270-GY; J0360; J0694; J1170; J1885; J2250; J2270; J2405; J2543; J2704; J3010; J3490; J7030; J7042; J7120; U0002

== ENCOUNTER 2020-08-16 12:06 | Emergency (ER) | payer MEDICARE ==
[2020-08-16] MEDS ORDERED: Sodium Chloride 0.9% 10 ML Syringe FLUSH PRN (12:20)
[2020-08-16] MEDS ORDERED: Ondansetron 4 MG/2 ML SDV IVPUSH ONE (12:20)
[2020-08-16] MEDS ORDERED: Ketorolac 30 MG/ML SDV IVPUSH ONE (12:20)
[2020-08-16] MEDS ORDERED: Sodium Chloride 0.9% 2.5 ML Syringe FLUSH PRN (12:20)
[2020-08-16] MEDS ORDERED: Morphine 2 MG/ML SYRINGE IVPUSH ONE (12:21)
[2020-08-16] MEDS ORDERED: Lisinopril 10 MG Tab PO ONE (12:22)
--- NOTE | 2020-08-16 12:26 | PCM.EKG ---
#1 Interpretation EKG Date: 08/16/20 Time: 12:25 EKG Interpretation Comments: Sinus rhythm rate of 68, no acute ischemia unremarkable intervals.
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
--- NOTE | 2020-08-16 13:00 | CR ---
INDICATION: left flank pain TECHNIQUE: Chest 1 view. COMPARISION: 06/30/20 FINDINGS: Cardiovascular and mediastinum: Heart size and vasculature are normal in caliber and appearance. Mediastinum is within normal limits. Lungs and pleural space: Lungs are clear. No sign of infiltrate or mass. No sign of pleural effusion. No pneumothorax. Bones and soft tissues: No significant findings. IMPRESSION: Unremarkable chest. Dictated by: Odilon Piper MD @ 08/16/2020 12:59:14 (Electronically Signed)
[2020-08-16 13:27] LABS: BLOOD UREA NITROGEN,BUN 16 mg/dL (7.0-18.0); CARBON DIOXIDE,CO2 23.8 mmol/L (21.0-32.0); CHLORIDE,CL 106 mmol/L (98-107); GLUCOSE RANDOM 147 mg/dL (74-106); LIPASE 633 U/L (73-393); SODIUM,NA 141 mmol/L (136-148)
--- NOTE | 2020-08-16 15:09 | CT ---
Indication: Left flank pain Technique: A CT volumetric acquisition was performed of the abdomen and pelvis prior to and following intravenous infusion 100 cc Isovue 370. Findings: FindingsCT images demonstrate an obstructing 9.5 mm calculus within the proximal left ureter. There is moderate hydronephrosis and edema within the left kidney. There is an additional 3 mm nonobstructing calculus within the posterior cortex upper pole left kidney. Tiny 1 mm calculi are noted within the mid and lower pole right kidney. There is an exophytic 2.9 cm cyst projecting laterally off the lower pole right kidney. The liver, spleen and pancreas appear normal. Gallbladder has been resected. Bile ducts are normal in size. Mild atherosclerotic changes are present within the aorta but there is no evidence of aneurysm. There is no evidence of retroperitoneal lymphadenopathy. The small intestine and colon appears normal. Prostate gland and urinary bladder appear normal. Impression: Obstructing 9.5 mm calculus identified within the proximal left ureter. Please note that all CT scans at this facility use dose modulation, iterative reconstruction, and/or weight-based dosing when appropriate to reduce radiation dose to as low as reasonably achievable. Dictated by Dewey Rosado MD @ Aug 16 2020 2:54PM Signed by Dr. Dewey Rosado @ Aug 16 2020 3:08PM
[2020-08-16 16:47] VITALS: BP 174/101; PULSE 82
[2020-08-16] MEDS ORDERED: Iopamidol 755 MG/ML 500 ML Multipack Bottle IVPUSH STA (18:31)
== END 2020-08-16 16:49 | disposition home or self-care (01) ==
LOC: MW.ED 12:06
DX: N13.2 Hydronephrosis with renal and ureteral calculous obstruction (principal); R74.8 Abnormal levels of other serum enzymes; I10 Essential (primary) hypertension; Z91.14 Patient's other noncompliance with medication regimen; Z72.0 Tobacco use; Z79.899 Other long term (current) drug therapy
CPT/HCPCS: 36415; 71045; 74178; 80053; 81001; 83690; 84484; 85025; 93005; 96374; 96375; 99284; A9270; J1885; J2270; J2405; Q9967; 93010

== ENCOUNTER 2020-08-17 13:32 | Day surgery (SDC) | payer MEDICARE ==
[~2020-08-17 13:32] MED LIST changes: -Acetaminophen 1,000 MG in Premix Bag 1 BAG IV ONE; +Glycopyrrolate 0.2 MG/ML SDV ONE; -Indocyanine Green 25 MG SDV SCH; +Ketorolac 30 MG/ML SDV ONE; -Lactated Ringers 1,000 ML IV SCH; +Lidocaine 2% 5 ML SDV ONE; +Midazolam 1 MG/ML 2 ML SDV ONE; +Ondansetron 4 MG/2 ML SDV ONE; +Propofol 200 MG/20 ML SDV ONE; +Rocuronium Bromide 50 MG/5 ML Syringe ONE; +Sugammadex Sodium 200 MG/2 ML VIAL ONE; -cefOXitin 2 GM in Premix Bag 1 BAG IV ONE; +fentaNYL 100 MCG/2 ML SDV ONE
[2020-08-17] MEDS ORDERED: Sodium Chloride 0.9% 10 ML Syringe FLUSH PRN (14:00)
[2020-08-17] MEDS ORDERED: Sodium Chloride 0.9% 2.5 ML Syringe FLUSH PRN ×2 (14:00)
[2020-08-17] MEDS ORDERED: Sodium Chloride 0.9% 10 ML SDV IV PRN (14:00)
[2020-08-17] MEDS ORDERED: ceFAZolin 2 GM in Premix Bag 1 BAG IV ONE (14:00)
[2020-08-17] MEDS ORDERED: Lactated Ringers 1,000 ML IV SCH (14:00)
[2020-08-17] MEDS ORDERED: Sodium Chloride 0.9% 20 ML ONE (14:27)
[2020-08-17] MEDS ORDERED: ceFAZolin 1 GM Vial ONE (14:27)
[2020-08-17] MEDS ORDERED: Iopamidol 408 MG/ML 20 ML SDV ONE (14:39)
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
[2020-08-17] MEDS ORDERED: Ondansetron 4 MG Tab.DIS PO PRN (15:25)
[2020-08-17] MEDS ORDERED: Acetaminophen/HYDROcodone 325-5 MG Tab PO PRN (15:25)
[2020-08-17 15:40] VITALS: BP 121/79; PULSE 85
--- NOTE | 2020-08-17 15:47 | PCM.POSTAN ---
POST ANESTHESIA ASSESSMENT - MENTAL STATUS Mental Status: Alert - VITAL SIGNS Vital Signs: Last Vital Signs Temp 36.2 C 08/17/20 15:18 Pulse 85 08/17/20 15:38 Resp 18 08/17/20 15:38 BP 121/79 08/17/20 15:38 Pulse Ox 94 L 08/17/20 15:38 - RESPIRATORY Respiratory Status: Respiratory Rate WNL - CARDIOVASCULAR CV Status: Pulse Rate WNL - GASTROINTESTINAL GI Status: No Symptoms - POST OP HYDRATION Hydration Status: Adequate & Stable
--- NOTE | 2020-08-17 16:06 | PCM48HPAN ---
Post Anesthesia Note - EVALUATION WITHIN 48HRS OF ANESTHETIC Vital Signs in Normal Range: Yes Patient Participated in Evaluation: Yes Respiratory Function Stable: Yes Airway Patent: Yes Cardiovascular Function Stable: Yes Hydration Status Stable: Yes Pain Control Satisfactory: Yes Nausea and Vomiting Control Satisfactory: Yes Mental Status Recovered: Yes Vital Signs: Last Vital Signs Temp 36.2 C 08/17/20 15:18 Pulse 85 08/17/20 15:38 Resp 18 08/17/20 15:38 BP 121/79 08/17/20 15:38 Pulse Ox 94 L 08/17/20 15:38
--- NOTE | 2020-08-17 16:22 | OR ---
SURGEON: Wilbert Navas M.D. DATE OF PROCEDURE: 08/17/2020 PREOPERATIVE DIAGNOSIS: 9 mm left upper ureteral obstructive stone. POSTOPERATIVE DIAGNOSIS: 9 mm left upper ureteral obstructive stone. OPERATION: Cystoscopy and placement of left double-J stent. DESCRIPTION: The patient was given general anesthesia. He was in dorsal lithotomy position, prepped and draped with sterile drapes. Cystourethroscopy was done, that was normal. A guidewire was advanced in the left ureter all the way up to the stone, which was then pushed into the left renal pelvis. A 6-[place] x 26 cm double-J stent was passed over the guidewire. Position was confirmed on fluoroscopy. The bladder was emptied, and the patient was moved to recovery room in good condition. PLAN: He will be back in 2 weeks in the office for me to arrange for him to have ESWL. CHAY / MARIANNA /[id number]
[2020-08-18] MEDS ORDERED: Tamsulosin 0.4 MG Cap.ER PO SCH (09:00)
[2020-08-18] MEDS ORDERED: Lisinopril 10 MG Tab PO SCH (09:00)
--- NOTE | 2020-08-19 15:03 | CR ---
INDICATION: Left ureteric stent placement. FINDINGS: 7.9 seconds of fluoroscopy has been utilized for placement of a left-sided ureteric stent. On limited imaging this appears to be in good position. The lower stent has not been imaged. IMPRESSION: C-arm fluoroscopy for left-sided ureteric stent placement. Dictated by Merrill Campos MD @ 08/19/2020 3:03:[address] Merrill Campos @ Aug 19 2020 3:03PM
== END 2020-08-17 16:15 | disposition home or self-care (01) ==
LOC: MW.SDS 13:32
PROVIDERS: ATTEND Urology
DX: N20.1 Calculus of ureter (principal); I10 Essential (primary) hypertension; E78.5 Hyperlipidemia, unspecified; R73.03 Prediabetes; E78.00 Pure hypercholesterolemia, unspecified; Z01.812 Encounter for preprocedural laboratory examination; Z20.822 Contact with and (suspected) exposure to COVID-19; Z79.82 Long term (current) use of aspirin; Z79.899 Other long term (current) drug therapy
CPT/HCPCS: 52332; 93005; J0690; J1885; J2250; J2405; J2704; J3010; J3490; U0002; 00910; C2617; Q9966

== ENCOUNTER 2024-02-05 19:37 | Emergency (ER) | payer MEDICARE ==
[2024-02-05] MEDS: predniSONE 10 MG Tab PO ONE (20:51)
[2024-02-05 21:07] VITALS: BP 152/87; PULSE 87
== END 2024-02-05 21:10 | disposition home or self-care (01) ==
LOC: MW.ED 19:37
DX: R21 Rash and other nonspecific skin eruption (principal); I10 Essential (primary) hypertension; Z79.899 Other long term (current) drug therapy; Z75.8 Other problems related to medical facilities and other health care
CPT/HCPCS: 99282; A9270; 99283

== ENCOUNTER 2024-06-13 16:21 | Observation (INO) | payer MEDICARE ==
[2024-06-13 16:58] LABS: BASOPHILS ABSOLUTE AUTO 0.04 K/uL (0.00-0.20); BASOPHILS PERCENT AUTO 0.5 % (0.0-1.0); EOSINOPHILS ABSOLUTE AUTO 0.07 K/uL (0.00-0.45); EOSINOPHILS PERCENT AUTO 0.9 % (0.0-6.0); HEMATOCRIT 43.4 % (42.0-52.0); HEMOGLOBIN 15.1 g/dL (14.0-18.0); IMMATURE GRAN ABSOLUTE AUTO 0.03 K/uL (0.00-0.05); IMMATURE GRAN PERCENT AUTO 0.4 % (0.0-0.4); LYMPHOCYTES PERCENT AUTO 35.1 % (24.0-44.0); MEAN CORPUSCULAR HEMOGLOBIN 31.1 pg (28.0-32.0); MEAN CORPUSCULAR HGB CONC 34.8 g/dL (32.0-36.0); MEAN CORPUSCULAR VOLUME 89.5 fL (83.0-99.0); MONOCYTES ABSOLUTE AUTO 0.57 K/uL (0.00-0.80); MONOCYTES PERCENT AUTO 7.7 % (0.0-8.0); NEUTROPHILS PERCENT AUTO 55.4 % (41.0-71.0); PLATELET COUNT,PLT 208 K/uL (150-400); RED BLOOD CELL COUNT 4.85 M/uL (4.52-5.90); WHITE BLOOD CELL COUNT,WBC 7.41 K/uL (3.9-11.3)
[2024-06-13 17:42] LABS: A/G RATIO 0.9 (0.9-1.6); ALBUMIN 3.9 g/dL (3.4-5.0); BILIRUBIN TOTAL 0.8 mg/dL (0.2-1.0); CALCIUM 9.1 mg/dL (8.5-10.1); CARBON DIOXIDE,CO2 27.5 mmol/L (21.0-32.0); CREATININE 1.6 mg/dL (0.8-1.3); EST CRCL DRUG DOSING (CG) 51.38 mL/min; MAGNESIUM 1.9 mg/dL (1.8-2.4); POTASSIUM,K 3.7 mmol/L (3.5-5.1); PROTEIN TOTAL,TP 8.1 g/dL (6.4-8.2)
[2024-06-13] MEDS: Sodium Chloride 0.9% 10 ML Syringe FLUSH PRN (19:18)
[2024-06-13] MEDS: Furosemide 40 MG/4 ML VIAL IVPUSH ONE (19:18)
[2024-06-13] MEDS: Sodium Chloride 0.9% 2.5 ML Syringe FLUSH PRN (19:18)
[2024-06-13] MEDS: Iopamidol 755 MG/ML 500 ML Multipack Bottle IVPUSH STA (19:21)
[2024-06-13] MEDS: Labetalol 100 MG Tab PO ONE (20:05)
[2024-06-13] MEDS: Cephalexin 500 MG Cap PO ONE (20:05)
[2024-06-14 06:45] LABS: BASOPHILS ABSOLUTE AUTO 0.03 K/uL (0.00-0.20); BASOPHILS PERCENT AUTO 0.4 % (0.0-1.0); EOSINOPHILS ABSOLUTE AUTO 0.09 K/uL (0.00-0.45); EOSINOPHILS PERCENT AUTO 1.3 % (0.0-6.0); HEMATOCRIT 40.2 % (42.0-52.0); HEMOGLOBIN 14.1 g/dL (14.0-18.0); IMMATURE GRAN ABSOLUTE AUTO 0.02 K/uL (0.00-0.05); IMMATURE GRAN PERCENT AUTO 0.3 % (0.0-0.4); LYMPHOCYTES ABSOLUTE AUTO 2.58 K/uL (1.00-4.80); LYMPHOCYTES PERCENT AUTO 38.4 % (24.0-44.0); MEAN CORPUSCULAR HEMOGLOBIN 30.9 pg (28.0-32.0); MEAN CORPUSCULAR HGB CONC 35.1 g/dL (32.0-36.0); MONOCYTES ABSOLUTE AUTO 0.57 K/uL (0.00-0.80); MONOCYTES PERCENT AUTO 8.5 % (0.0-8.0); NEUTROPHILS ABSOLUTE AUTO 3.43 K/uL (1.80-7.70); NEUTROPHILS PERCENT AUTO 51.1 % (41.0-71.0); PLATELET COUNT,PLT 196 K/uL (150-400); RED BLOOD CELL COUNT 4.57 M/uL (4.52-5.90); WHITE BLOOD CELL COUNT,WBC 6.72 K/uL (3.9-11.3)
[2024-06-14] MEDS: Cephalexin 500 MG Cap PO SCH (06:50)
[2024-06-14 06:58] LABS: CALCIUM 9.2 mg/dL (8.5-10.1); CARBON DIOXIDE,CO2 26.6 mmol/L (21.0-32.0); CREATININE 1.3 mg/dL (0.8-1.3); EST CRCL DRUG DOSING (CG) 63.23 mL/min; POTASSIUM,K 3.3 mmol/L (3.5-5.1)
[2024-06-14 08:30] LABS: HEMOGLOBIN A1C 6.1 %
[2024-06-14] MEDS: Potassium Chloride 20 MEQ Tab.ER PO ONE (09:02)
[2024-06-14] MEDS ORDERED: Acetaminophen 325 MG Tab PO PRN (09:06)
[2024-06-14] MEDS: Lisinopril 10 MG Tab PO ONE (14:00)
[2024-06-14 16:29] VITALS: BP 156/78; PULSE 63
== END 2024-06-14 17:34 | disposition home or self-care (01) ==
LOC: MW.ED 16:21 → MW.MS 19:36
PROVIDERS: ADMIT Internal Medicine; ATTEND Internal Medicine
DX: I11.0 Hypertensive heart disease with heart failure (principal); I50.9 Heart failure, unspecified; L03.115 Cellulitis of right lower limb; R07.9 Chest pain, unspecified; E78.00 Pure hypercholesterolemia, unspecified; F17.210 Nicotine dependence, cigarettes, uncomplicated; Z79.899 Other long term (current) drug therapy
CPT/HCPCS: 36415; 71045; 71045-26; 71275; 71275-26; 80048; 80053; 83036; 83690; 83735; 83880; 84484; 85025; 93005; 93971-26-RT; 93971-RT; 96374; 99285-25; A9270-GY; G0378; J1940; Q9967